=== PATIENT | female | born 2005 | race Caucasian/White ===

== ENCOUNTER 2024-07-09 00:26 | Emergency (ER) | payer OTHER, SELFPAY ==
[2024-07-09 00:30] VITALS: BP 124/80; PULSE 77; TEMP 36.4; O2SAT 100; BMI 29.3
--- NOTE | 2024-07-09 00:58 | ED_ITS ---
HPI - Female Genitourinary General Chief complaint: OB/Uterine Contractions Stated complaint: SEVERE CRAMPING/ABDOMINAL PAIN Time Seen by Provider: 07/09/24 00:56 Source: patient Mode of arrival: ambulance Limitations: no limitations History of Present Illness HPI Narrative: patient believes she is about 4 weeks . First . Started bleeding some about 4 days ago. Increased bleeding today with cramping and large clots. After arrival to the ER the cramping has decreased and she appears to have passed products. No weakness or light headiness. No fever. Has chronic dysuria. Not aware of family history of miscarriage Related Data Allergies Allergy/AdvReac Type Severity Reaction Status Date / Time prednisone AdvReac Intermediate Anxiety Verified 07/09/24 00:29 Review of Systems ROS Status of ROS 10 or more systems reviewed and unremark able except as noted in history and below Exam Constitutional Vital Signs, click to edit/add: Last Vital Signs Temp 97.6 F 07/09/24 00:30 Pulse 72 07/09/24 02:18 Resp 28 H 07/09/24 00:30 BP 124/67 07/09/24 02:18 Pulse Ox 100 07/09/24 00:30 O2 Del Method Room Air 07/09/24 00:30 Common normals: average body habitus, oriented x3, no limitations, healthy appearing, alert and well nourished Other: tearful because of the miscarriage [facility] Common normals: normocephalic and head/scalp atraumatic Eye Common normals: PERRL and EOMs intact bilaterally Respiratory Common normals: normal respiratory effort, no retractions, no use of accessory muscles and clear to auscultation bilaterally Cardio Common normals: regular rate, regular rhythm, S1 normal heart sound and S2 normal heart sound GI Common normals: Normal to inspection, nondistended, normoactive bowel sounds present and soft to palpation Other: mild gen. nonspecific tenderness. no guarding Extremity Common normals: normal to inspection and full ROM Neuro Common normals: oriented x3, CN's II-XII intact bilaterally, moves all extremities, no focal motor deficits and no sensory deficits noted Psych Appearance: grossly normal Course Vital Signs Vital signs: Vital Signs Temperature 97.6 F 07/09/24 00:30 Pulse Rate 77 07/09/24 00:30 Respiratory Rate 28 H 07/09/24 00:30 Blood Pressure 124/80 07/09/24 00:30 Pulse Oximetry 100 07/09/24 00:30 Oxygen Delivery Method Room Air 07/09/24 00:30 Temperature 97.6 F 07/09/24 00:30 Pulse Rate 72 07/09/24 02:18 Respiratory Rate 28 H 07/09/24 00:30 Blood Pressure 124/67 07/09/24 02:18 Pulse Oximetry 100 07/09/24 00:30 Oxygen Delivery Method Room Air 07/09/24 00:30 MDM - Female Genitourinary MDM Narrative Medical decision making narrative: patient [id number] approx 4 weeks presents with vaginal bleeding for 4 days. Increased heavy bleeding tonight and cramping. After arrival to the ER past large clot containing what appears to be products. cramping decreased significantly and now she is restng comfortably. VSS. HCG 139. now only has small amount of bleeding. Patient informed of diagnosis of miscarriage and advised to follow up with her OB Lab Data Labs: Lab Results 07/09/24 Range/Units 00:30 WBC 12.8 H (4.0-11.0) 10^3/uL RBC 4.50 (4.20-5.40) 10^6/uL Hgb 13.4 (12.0-16.0) g/dL Hct 39.5 (36.0-48.0) % MCV 87.8 (81.0-99.0) fL MCH 29.8 (26.7-34.0) pg MCHC 33.9 (29.9-35.2) g/dL RDW 12.1 (11.0-15.0) % Plt Count 241 (150-450) 10^3/uL MPV 10.9 (9.5-13.5) fL Neut % (Auto) 75.2 H (43.0-75.0) % Lymph % (Auto) 14.6 L (20.5-60.0) % [place] % (Auto) 7.0 (1.7-12.0) % Eos % (Auto) 2.3 (0.9-7.0) % Baso % (Auto) 0.5 (0.2-2.0) % Neut # (Auto) 9.6 H (1.4-6.5) 10^3/uL Lymph # (Auto) 1.9 (1.2-3.8) 10^3/uL [place] # (Auto) 0.9 H (0.3-0.8) 10^3/uL Eos # (Auto) 0.3 (0.0-0.7) 10^3/uL Baso # (Auto) 0.1 (0.0-0.1) 10^3/uL Abs Immat Gran (auto) 0.05 H (0.00-0.03) 10^3/uL Imm/Tot Granulo (auto) 0.4 (0.0-0.5) % Sodium 137 (136-145) mmol/L Potassium 3.7 (3.5-5.1) mmol/L Chloride 100 (98-107) mmol/L Carbon Dioxide 24.1 (21.0-32.0) mmol/L Anion Gap 16.6 BUN 13.0 (7.0-18.0) mg/dL Creatinine 0.67 (0.55-1.02) mg/dL Est GFR ( Amer) >60 (>=60 mL/min/1.73m^2) Est GFR (Non-Af Amer) >60 (>=60 mL/min/1.73m^2) BUN/Creatinine Ratio 19.4 Glucose 115 H (74-106) mg/dL Calcium 9.1 (8.5-10.1) mg/dL HCG, Quant 139 mIU/mL Discharge Plan Discharge Chief Complaint: OB/Uterine Contractions Clinical Impression: Miscarriage Patient Disposition: Home, Self-Care Print Language: Chilean Instructions: Miscarriage (ED) Referrals: Physician,Non-Staff, MD [Primary Care Provider] - 1 week
[2024-07-09 01:07] LABS: Basophils Absolute Auto 0.1 10^3/uL (0.0-0.1); Basophils Percent Auto 0.5 % (0.2-2.0); Eosinophils Absolute Auto 0.3 10^3/uL (0.0-0.7); Eosinophils Percent Auto 2.3 % (0.9-7.0); Hematocrit 39.5 % (36.0-48.0); Hemoglobin 13.4 g/dL (12.0-16.0); Immature Granulocytes Abs Auto 0.05 10^3/uL (0.00-0.03); Immature Granulocytes Pct Auto 0.4 % (0.0-0.5); Lymphocytes Absolute Auto 1.9 10^3/uL (1.2-3.8); Lymphocytes Percent Auto 14.6 % (20.5-60.0); Mean Corpuscular HGB Conc 33.9 g/dL (29.9-35.2); Mean Corpuscular Hemoglobin 29.8 pg (26.7-34.0); Mean Corpuscular Volume 87.8 fL (81.0-99.0); Mean Platelet Volume 10.9 fL (9.5-13.5); Monocytes Absolute Auto 0.9 10^3/uL (0.3-0.8); Neutrophils Absolute Auto 9.6 10^3/uL (1.4-6.5); Neutrophils Percent Auto 75.2 % (43.0-75.0); Platelet Count 241 10^3/uL (150-450); Red Cell Distribution Width 12.1 % (11.0-15.0); White Blood Count 12.8 10^3/uL (4.0-11.0)
[2024-07-09 01:28] LABS: Anion Gap 16.6; BUN Creatinine Ratio 19.4; Calcium 9.1 mg/dL (8.5-10.1); Carbon Dioxide 24.1 mmol/L (21.0-32.0); Chloride 100 mmol/L (98-107); Estimated GFR (African America >60 (>=60 mL/min/1.73m^2); Estimated GFR (Non-African Ame >60 (>=60 mL/min/1.73m^2); Glucose 115 mg/dL (74-106); Potassium 3.7 mmol/L (3.5-5.1); Sodium 137 mmol/L (136-145)
[2024-07-09 01:29] LABS: HCG Quantitative 139 mIU/mL
[2024-07-09 02:18] VITALS: BP 113/69; BP 118/70; BP 124/67; PULSE 72; PULSE 76; PULSE 80
== END 2024-07-09 02:49 | disposition home or self-care (01) ==
PROVIDERS: Emergency Provider Internal Medicine
DX: O03.9 Complete or unspecified spontaneous abortion without complication (principal)
CPT/HCPCS: 36415; 80048; 84702; 85025; 99283

== ENCOUNTER 2024-07-13 15:40 | Outpatient (RCR) | payer OTHER, SELFPAY ==
[2024-07-13 17:10] LABS: HCG Quantitative 6 mIU/mL
[2024-07-23 07:18] LABS: HCG Quantitative <1 mIU/mL
== END 2024-08-10 10:51 | disposition home or self-care (01) ==
LOC: LAB 15:40
PROVIDERS: Visit Provider Obstetrics & Gynecology
DX: O03.9 Complete or unspecified spontaneous abortion without complication (principal)
CPT/HCPCS: 36415; 84702

== ENCOUNTER 2024-08-31 21:49 | Emergency (ER) | payer OTHER, SELFPAY ==
[2024-08-31 21:54] VITALS: BP 126/76; PULSE 69; TEMP 36.7; O2SAT 99; BMI 30.2
--- NOTE | 2024-08-31 23:29 | ED.EYEPROB1 ---
HPI - Eye Problem General Chief complaint: Eye Problems Stated complaint: L EYE IRRITATION Time Seen by Provider: 08/31/24 23:26 Source: patient Mode of arrival: walk-in Limitations: no limitations History of Present Illness HPI Narrative: patient states she woke up and her cat was licking her left eye. Now it is pink and irritated. No visual complaint or headache. No other injury Related Data Home Medications ?Medication ?Instructions ?Recorded ?Confirmed No Known Home Medications 08/31/24 08/31/24 Allergies Allergy/AdvReac Type Severity Reaction Status Date / Time prednisone AdvReac Intermediate Anxiety Verified 08/31/24 21:53 Review of Systems ROS Status of ROS 10 or more systems reviewed and unremarkable except as noted in history and below PFSH PFSH Social History Little interest or pleasure in doing things: not at all Feeling down, depressed, or hopeless: not at all Exam Constitutional Vital Signs, click to edit/add: Last Vital Signs Temp 98.1 F 08/31/24 21:54 Pulse 69 08/31/24 21:54 Resp 20 08/31/24 21:54 BP 126/76 08/31/24 21:54 Pulse Ox 99 08/31/24 21:54 O2 Del Method Room Air 08/31/24 21:54 Common normals: no apparent distress, average body habitus, oriented x3, no limitations, healthy appearing, alert and well nourished [facility] Common normals: normocephalic and head/scalp atraumatic Eye Common normals: PERRL and EOMs intact bilaterally Other: left conjunctiva pink and glassy. no chemosis or discharge. no palpebral edema or erythema Respiratory Common normals: normal respiratory effort, no retractions, no use of accessory muscles and clear to auscultation bilaterally Cardio Common normals: regular rate, regular rhythm, S1 normal heart sound and S2 normal heart sound Extremity Common normals: normal to inspection and full ROM Neuro Common normals: oriented x3, CN's II-XII intact bilaterally, moves all extremities and no focal motor deficits Psych Appearance: grossly normal Course Vital Signs Vital signs: Vital Signs Temperature 98.1 F 08/31/24 21:54 Pulse Rate 69 08/31/24 21:54 Respiratory Rate 20 08/31/24 21:54 Blood Pressure 126/76 08/31/24 21:54 Pulse Oximetry 99 08/31/24 21:54 Oxygen Delivery Method Room Air 08/31/24 21:54 Temperature 98.1 F 08/31/24 21:54 Pulse Rate 69 08/31/24 21:54 Respiratory Rate 20 08/31/24 21:54 Blood Pressure 126/76 08/31/24 21:54 Pulse Oximetry 99 08/31/24 21:54 Oxygen Delivery Method Room Air 08/31/24 21:54 MDM - Eye Problem MDM Narrative Medical decision making narrative: patient presents with left pink eye. No FB sensation. cat was licking her eye. No visual complaint. Will treat as conjunctivitis with tobramycin and have her follow up with her doctor for recheck Discharge Plan Discharge Chief Complaint: Eye Problems Clinical Impression: Conjunctivitis Patient Disposition: Home, Self-Care Prescriptions / Home Meds: No Action No Known Home Medications Print Language: Irish Instructions: Conjunctivitis (ED) Additional Instructions: have eye rechecked in next 1-2 days Referrals: [facility] [Primary Care Provider, Unknown] - 1 week
[2024-08-31] MEDS: TOBRAMYCIN 0.3% OP SOL 100 DROP/5 ML BOTTLE OP (23:52)
== END 2024-09-01 00:04 | disposition home or self-care (01) ==
PROVIDERS: Emergency Provider Internal Medicine
DX: H10.022 Other mucopurulent conjunctivitis, left eye (principal)
CPT/HCPCS: 99284

== ENCOUNTER 2024-09-14 10:25 | Outpatient (RCR) | payer OTHER, SELFPAY ==
--- OUTSIDE RECORDS SUMMARY | 2024-09-14 10:30 | XMS_ITS | Encounter Summary ---
Author Organization [facility] Address [address] [place] [address] Care Team Providers Care Director Patient Accounting Name Role Phone Unavailable Primary Care Provider Unavailabl e Encounter Details Date Type Department Care Team ([facility] Contact Info) Description 09/14/2024 Telephone [facility] [address] [place] [id number] Marilu Pearce MA Social History Tobacco Use Types Packs/Day Years Used Date Smoking Tobacco: Never Assessed Comments Unknown Sex and Gender Information Value Date Recorded Sex Assigned at Female 07/13/2024 5:09 AM EDT Legal Sex Female 9:35 PM EDT Gender Identity Female 07/13/2024 5:09 AM EDT Sexual Orientation Straight 07/13/2024 5: 09 AM EDT documented as of this encounter Miscellaneous Notes * Telephone Encounter - Marilu Pearce MA - 09/14/2024 9:17 AM EDT Hi, this is Sb Gregorio. Keron, I was supposed to call you guys when I became again, which I am now to get progesterone from [facility] and to schedule an appointment for an office, so please get back to me at any time it is [phone]. Thank you very much. LMP: 08/08/2024 Advised pt we would send in progesterone suppositories to [facility]. Pt requested ultrasound. Advised pt we would need to do hCG levels to determine if she is far enough along to have ultrasound done. Pt voiced understanding. Labs sent to [facility] and pt transferred to front office staff to schedule NOB. documented in this encounter Plan of Treatment Scheduled Orders Name Type Priority Associated Diagnoses Orde r Schedule hCG, quantitative, Lab Routine Positive urine test ([facility]) 2 Occurrences starting 09/14/2024 until 09/14/2025 documented as of this encounter Visit Diagnoses Diagnosis Positive urine test ([facility]) History of miscarriage Personal history of other genital system and obstetric disorders documented in this encounter
--- OUTSIDE RECORDS SUMMARY | 2024-09-14 10:30 | XMS_ITS | Encounter Summary ---
Author Organization [facility] Address [id number] [address] [place] [address] Care Team Providers Care Battery Mechanic Name Role Phone Services, [facility] Primary Care Provider Reason for Visit * Reason Comments Med Refill Encounter Details Date Type Department Care Team ([facility] Contact Info) Description 02/19/2022 Refill [facility] [address], [place] [id number] Thi Sin DO [address] [place], [place] [id number] Dysmenorrhea treated with oral contraceptive; Dysuria Social History Tobacco Use Types Packs/Day Years Used Date Smoking Tobacco: Passive Smo ke Exposure - Never Smoker Smokeless Tobacco: Never Alcohol Use Standard Drinks/Week Comments Never 0 (1 standard drink = 0.6 oz pur e alcohol) Childcare Answer Date Recorded Childcare Unknown 08/20/2018 Employment Answer Date Recorded Employment Unknown 08/20/2018 Purpose - Life Answer Date Recorded Purpose and direction in life Unknown Comments No Sex and Gender Information Value Date Recorded Sex Assigned at Not on file Legal Sex Female 12:02 PM EDT Gender Identity Not on file Sexual Orientation Not on file COVID-19 Exposure Response Date Recorded In the last month, have you been in contact with someone who was confirmed or suspected to have Coronavirus / COVID-19? Yes 02/11/2022 10:59 PM EST documented as of this encounter Miscellaneous Notes * Telephone Encounter - Margarita Aponte - 02/19/2022 2:05 PM EST Patient's mother called asking for a B/C refill to be sent to [facility] in [place] * Telephone Encounter - Thi Sin DO - 02/19/2022 2:05 PM EST Pt will need to schedule a follow up apt in March for annual well visit. documented in this encounter Plan of Treatment Upcoming Encounters Date Type Department Care Team (Late st Contact Info) Description 11/05/2024 10:00 AM EDT Office Visit [facility] Family Medicine [address] [place] [address] [place] [address] Susi Mckee APRN-SECY [address], [place] [address] documented as of this encounter Visit Diagnoses Diagnosis Dysmenorrhea treated with oral contraceptive Dysuria documented in this encounter Additional Health Concerns Infection Onset Date Last Indicated Resolved Time COVID-19 Positive 08/20/2023 08/20/2023 09/10/2023 11:12 PM EDT COVID-19 Rule-Out 01/30/2024 01/30/2024 01/30/2024 3:34 AM EST documented as of this encounter Care Teams Battery Mechanic Relationship Specialty Start Date End Date Services, [facility] [address] [place], [place] PCP - General Family Medicine 07/07/24 documented as of this encounter
--- OUTSIDE RECORDS SUMMARY | 2024-09-14 10:30 | XMS_ITS | Clinical Summary ---
Author Organization [facility] Address [address] [place] [address] Care Team Providers Care Scrub Technician Name Role Phone Lori Mak DO Primary Care Provider [phone] Allergies No known active allergies Medications norelgestromin-et hinyl estradiol (ORTHO EVRA) 150-35 MCG/24HRIndicatio ns:Screen for STD (sexually transmitted disease),Menorrha ana with irregular cycle Place 1 patch onto the skin every 7 days 3 patch 3 12/22/2018 Active Active Problems No known active problems Family History Medical History Relation Name Comments Kidney stones Mother Relation Name Status Comments Mother Social History Tobacco Use Types Packs/Day Years Used Date Smoking Tobacco: Never Smokeless Tobacco: Never Tobacco Cessation:Counseling Given: Not Answered Alcohol Use Standard Drinks/Week Comments Never 0 (1 standard drink = 0.6 oz pur e alcohol) Comments No Sex and Gender Information Value Date Recorded Sex Assigned at Not on file Legal Sex Female 5:04 PM EST Gender Identity Not on file Sexual Orientation Not on file Last Filed Vital Signs Vital Sign Reading Time Taken Comments Blood Pressure 118/78 12/22/2018 4:21 PM EDT Pulse - - Temperature 37.1 C (98.7 F) 10/22/2022 3:02 PM EDT Respiratory Rate - - Oxygen Saturation - - Inhaled Oxygen Concentration - - Weight 56.2 kg (124 lb) 10/22/2022 3:02 PM EDT Height 160 cm (5' 3 ) 10/22/2022 3:02 PM EDT Body Mass Index 21.97 10/22/2022 3:02 PM EDT Plan of Treatment Health Maintenance Due Date Last Done Comments Depression Screen 2016 Varicella vaccine (1 of 2 - 13+ 2-dose series) 02/28/2017 HIV screen 02/28/2019 HPV vaccine (1 - 3-dose series) 02/28/2019 Chlamydia/GC screen 2020 12/22/2018 Meningococcal B vaccine (1 o f 2 - Standard) 2020 Hepatitis C screen 02/28/2022 DTaP/Tdap/Td vaccine (1 - Tdap) 02/28/2023 Hepatitis B vaccine (1 of 3 - 19+ 3-dose series) 02/28/2023 COVID-19 Vaccine (1 - 2023-2 5 season) 2023 Flu vaccine (#1) 10/09/2024 Hepatitis A vaccine Aged Out No longe r eligible based on patient's age to complete this topic Hib vaccine Aged Out No longer eligi ble based on patient's age to complete this topic Meningococcal (ACWY) vaccine Aged Out No longer eligible based on patient's age to complete this topic Pneumococcal 0-49 years Vaccine Aged Out No longer eligible based on patient's age to complete this topic Polio vaccine Aged Out No longer elig ible based on patient's age to complete this topic Procedures Procedure Name Priority Date/Time Associated Diagnosis Comments C.TRACHOMATIS N.GONORRHOEAE DNA, URINE Routine 12/22/2018 4:30 PM EDT Screen for STD (sexually transmitted disease) from Last 3 Months or Most Recently Relevant to Health Maintenance Results * C.trachomatis N.gonorrhoeae DNA, Urine (12/22/2018 4:30 PM EDT) Specimen Description .URINE 12/22/2018 4:30 PM EDT [facility] C. trachomatis DNA ,Urine NEGATIVE NEGATIVE 12/22/2018 4:30 PM EDT [facility] Comment: CHLAMYDIA TRACHOMATIS DNA not detected by nucleic acid amplification. This test is intended for medical purposes only and is not valid for the evaluation of suspected sexual abuse or for other forensic purposes. In certain contexts, culture may be required to meet applicable laws and regulations for diagnosis of C. trachomatis and N. gonorrhoeae infections. Per 2014 CDC recommendations, this test does not include confirmation of positive results by an alternative nucleic acid target. N. gonorrhoeae DNA, Urine NEGATIVE NEGATIVE 12/22/2018 4:30 PM EDT [facility] Comment: NEISSERIA GONORRHOEAE DNA not detected by nucleic acid amplification. This test is intended for medical purposes only and is not valid for the evaluation of suspected sexual abuse or for other forensic purposes. In certain contexts, culture may be required to meet applicable laws and regulations for diagnosis of C. trachomatis and N. gonorrhoeae infections. Per 2014 CDC recommendations, this test does not include confirmation of positive results by an alternative nucleic acid target. Urine 12/22/2018 4:30 PM EDT 12/22/2018 6:14 PM EDT Thalia Hearn [employer]HALT PLANT OPERATOR - CNM MICROBIOLOGY - GENERA L ORDERABLES Final Result [facility] [address] [place] [address], [facility] [phone] [address], [facility] [phone] from Last 3 Months or Most Recently Relevant to Health Maintenance Insurance [facility] MEDICAID Care Teams Scrub Technician Relationship Specialty Start Date End Date oLri Mak DO PCP - General Pediatrics 05/08/21
--- OUTSIDE RECORDS SUMMARY | 2024-09-14 10:30 | XMS_ITS | Encounter Summary ---
Author Organization [facility] Address [id number] [address] [place] [address] Care Team Providers Care Compliance Review Specialist Name Role Phone Services, [facility] Primary Care Provider Encounter Details Date Type Department Care Team ([facility] Contact Info) Description 02/04/2023 Orders Only [facility] Ob[facility]ne[facility] [address] [facility], [place] [address] Thalia Coronado, BULK MAIL TECHNICIAN-KEYSHA [address] [facility], [address] [place], [place] [id number] Social History Tobacco Use Types Packs/Day Years Used Date Smoking Tobacco: Never Passive Smoke Exposure: Yes Smokeless Tobacco: Never Alcohol Use Standard Drinks/Week Comments Never 0 (1 standard drink = 0.6 oz pur e alcohol) Childcare Answer Date Recorded Childcare Unknown 08/20/2018 Employment Answer Date Recorded Employment Unknown 08/20/2018 Hunger Screening Answer Date Recorded Within the past 12 months we worried whether our food would run out before we got money to buy more. Never True 02/06/2023 Within the past 12 months th e food we bought just didn't last and we didn't have money to get more. Never True 02/06/2023 Purpose - Life Answer Date Recorded Purpose and direction in life Unknown Comments No Sex and Gender Information Value Date Recorded Sex Assigned at Not on file Legal Sex Female 12:02 PM EDT Gender Identity Not on file Sexual Orientation Not on file documented as of this encounter Plan of Treatment Upcoming Encounters Date Type Department Care Team ([facility] Contact Info) Description 11/05/2024 10:00 AM EDT Office Visit [facility] [address] [place] [address] Susi Mckee APRN-FINNISH RUBBER [address], [place] [address] documented as of this encounter Visit Diagnoses Not on filedocumented in this encounter Additional Health Concerns Infection Onset Date Last Indicated Resolved Time COVID-19 Positive 08/20/2023 08/20/2023 09/10/2023 11:12 PM EDT COVID-19 Rule-Out 01/30/2024 01/30/2024 01/30/2024 3:34 AM EST documented as of this encounter Care Teams Compliance Review Specialist Relationship Specialty Start Date End Date Services, [facility] [address] [place] PCP - General Family Medicine 07/07/24 documented as of this encounter
--- OUTSIDE RECORDS SUMMARY | 2024-09-14 10:30 | XMS_ITS | Clinical Summary ---
Author Organization [facility] tem Address [id number] [address] [place] [address] Care Team Providers Care Automatic Maintainer Name Role Phone Services, [facility] Primary Care Provider Allergies Active Allergy Reactions Criticality Noted Date Comments Prednisone 08/20/2023 Medications norethindrone-e.es tradioL-iron (MICROGESTIN 24 FE) 1 mg-20 mcg (24)/75 mg (4) per tabletIndications: Oral contraceptive pill surveillance Take 1 tablet by mouth in the morning. 84 tablet 3 4 Active PNV 119-iron fum-folic acid 29 mg iron- 1 mg tablet Take 1 tablet by mouth in the morning. 30 tablet 5 Active Active Problems Estimated Date of Delivery Comme nts Yes 02/28/2025 No known active problems Encounters Date Type Department Care Team Description 07/07/2024 1:03 PM EDT - 07/07/2024 3:07 PM EDT Emergency [facility] [address] [place] [id number] Vaginal bleeding during (Primary Dx) Discharge Disposition: Home 07/07/2024 Travel from Last 3 Months Family History Medical History Relation Name Comments Deep vein thrombosis Maternal Grandfather Skin cancer Maternal Grandfather Heart disease Maternal Grandmother Breast cancer Maternal great-grandmother No Known Problems Mother Cancer Paternal Grandfather Diabetes Paternal Grandfather Leukemia Paternal Grandfather Colon cancer Neg Hx Ovarian cancer Neg Hx Pancreatic cancer Neg Hx Uterine cancer Neg Hx Relation Name Status Comments Father Alive Maternal Grandfather Alive Maternal Grandmother Alive Maternal great-grandmother Mother Alive Paternal Grandfather Alive Paternal Grandmother Alive Social History Tobacco Use Types Packs/Day Years Used Date Smoking Tobacco: Never Passive Smoke Exposure: Yes Smokeless Tobacco: Never Tobacco Cessation:Counseling Given: Not Answered Alcohol Use Standard Drinks/Week Comments Never 0 (1 standard drink = 0.6 oz pur e alcohol) PHQ-2 Answer Date Recorded Total Score 4 02/05/2024 Childcare Answer Date Recorded Childcare Unknown 08/20/2018 Employment Answer Date Recorded Employment Unknown 08/20/2018 Hunger Screening Answer Date Recorded Within the past 12 months we worried whether our food would run out before we got money to buy more. Never True 07/07/2024 Within the past 12 months th e food we bought just didn't last and we didn't have money to get more. Never True 07/07/2024 Purpose - Life Answer Date Recorded Purpose and direction in life Unknown Estimated Date of Delivery Comme nts Yes 02/28/2025 Sex and Gender Information Value Date Recorded Sex Assigned at Not on file Legal Sex Female 12:02 PM EDT Gender Identity Not on file Sexual Orientation Not on file Last Filed Vital Signs Vital Sign Reading Time Taken Comments Blood Pressure 132/75 07/07/2024 1:06 PM EDT Pulse 90 07/07/2024 1:06 PM EDT Temperature 36.7 C (98 F) 07/07/2024 1:06 PM EDT Respiratory Rate 16 07/07/2024 1:06 PM EDT Oxygen Saturation 100% 07/07/2024 1:06 PM EDT Inhaled Oxygen Concentration - - Weight 72.6 kg (160 lb) 07/07/2024 1:06 PM EDT Height 157.5 cm (5' 2 ) 07/07/2024 1:06 PM EDT Body Mass Index 29.26 07/07/2024 1:06 PM EDT Plan of Treatment Upcoming Encounters Date Type Department Care Team (Late st Contact Info) Description 11/05/2024 10:00 AM EDT Office Visit [facility] [address] [place] [address] Susi Mckee APRN-INDY [address] [place] [address], [place] [address] Health Maintenance Due Date Last Done Comments Adult BMI Follow Up Plan 02/28/2022 Chlamydia Screening 10/07/2024 10/08/2023, 05/21/2023, 08/10/2022, Additional history exists Influenza Vaccine 11/09/2024 Depression Screening 02/04/2025 02/05/2024 Adult BMI Screening 07/07/2025 07/07/2024 Tobacco Screening 07/07/2025 07/07/2024 DTaP,Tdap and Td Vaccines (6 - Td or Tdap) 11/14/2026 11/14/2016, 07/16/2005, 2004, Additional history exists Medical Devices Not on file Procedures Procedure Name Priority Date/Time Associated Diagnosis Comments HCG-BETA, SERUM STAT 07/07/2024 1:54 PM EDT CBC WITH AUTO DIFFERENTIAL STAT 07/07/2024 1:54 PM EDT US PREG LESS THAN 14 WKS WITH TRANSVAGINAL STAT 07/07/2024 1:53 PM EDT POCT , URINE (NUCG) Routine 07/07/2024 1:21 PM EDT POCT NURSING URINE MACROSCOPIC UA Routine 07/07/2024 1:19 PM EDT ER EXTRA URINE STAT 07/07/2024 1:12 PM EDT CHLAMYDIA/GC BY PCR DAVIDA SWAB Routine 10/08/2023 9:16 AM EDT Screening for STD (sexually transmitted disease) from Last 3 Months or Most Recently Relevant to Health Maintenance Results * CBC auto differential (07/07/2024 1:54 PM EDT) WBC 11.0 4 - 11 x10E9/L 07/07/2024 2:04 PM EDT [facility] RBC Count 4.47 3.8 - 5.2 X10E12/L 07/07/2024 2:04 PM EDT [facility] Hemoglobin 13.2 11.7 - 15.5 g/dL 07/07/2024 2:04 PM EDT [facility] Hematocrit 39.5 35 - 47 % 07/07/2024 2:04 PM EDT [facility] MCV 88 80 - 100 fL 07/07/2024 2:04 PM EDT [facility] MCH 29.5 27 - 34 pg 07/07/2024 2:04 PM EDT [facility] MCHC 33.4 32 - 36 g/dL 07/07/2024 2:04 PM EDT [facility] RDW 13.0 11.5 - 15 % 07/07/2024 2:04 PM EDT [facility] Platelet Count 245 150 - 450 X10E9/L 07/07/2024 2:04 PM EDT [facility] MPV 8.9 7 - 12 fL 07/07/2024 2:04 PM EDT [facility] Neutrophils % 52.6 % 07/07/2024 2:04 PM EDT [facility] Lymphocytes % 32.5 % 07/07/2024 2:04 PM EDT [facility] Monocytes % 9.3 % 07/07/2024 2:04 PM EDT [facility] Eosinophils % 5.1 % 07/07/2024 2:04 PM EDT [facility] Basophils % 0.5 % 07/07/2024 2:04 PM EDT [facility] Neutrophils Absolute (A) 5.8 10*3/uL 07/07/2024 2:04 PM EDT [facility] Lymphocytes Absolute 3.6 10*3/uL 07/07/2024 2:04 PM EDT [facility] Monocytes Absolute 1.0 10*3/uL 07/07/2024 2:04 PM EDT [facility] Eosinophils Absolute 0.6 10*3/uL 07/07/2024 2:04 PM EDT [facility] Basophils Absolute 0.1 10*3/uL 07/07/2024 2:04 PM EDT [facility] Differential Type AUTOMATED DIFFERENTIAL 07/07/2024 2:04 PM EDT [facility] Blood Venous blood / Unknown Venipuncture / Unknown 07/07/2024 1:54 PM EDT 07/07/2024 1:57 PM EDT us Zohreh Salcedo BRAKE REPAIRER-FORESTRY PATROLMAN LAB BLOOD ORDERABLES Final Result [facility] [address] [place] [address], * HCG, Quantitative, (07/07/2024 1:54 PM EDT) SERUM B HCG,3RD I.S. 418 mIU/mL 07/07/2024 2:45 PM EDT [facility] Blood Venous blood / Unknown Venipuncture / Unknown 07/07/2024 1:54 PM EDT 07/07/2024 1:56 PM EDT Narrative [facility] - 07/07/2024 2:45 PM EDT WEEKS (SINCE LMP) MIU/mL 3 WEEKS 5 - 50 4 WEEKS 5 - 426 5 WEEKS 18 - 7,340 6 WEEKS 1,080 - 56,500 7-8 WEEKS 7,650 - 229,000 9-12 WEEKS 25,700 - 288,000 13-16 WEEKS 13,300 - 254,000 17-24 WEEKS 4,060 - 165,400 25-40 WEEKS 3,640 - 117,000 MALES AND NON- FEMALES - <5 MIU/mL This test has been FDA approved for use in only. Elevated levels are not necessarily diagnostic for trophoblastic or nontrophoblastic neoplasms. us Zohreh Salcedo BRAKE REPAIRER-FORESTRY PATROLMAN LAB BLOOD ORDERABLES Final Result [facility] [address] [place] [address], [place] * Ultrasound less than 14 weeks with transvaginal (07/07/2024 1:53 PM EDT) Anatomical Region Laterality Modality OB-WORK COUNSELOR Ultrasound 07/07/2024 2:01 PM EDT Narrative 07/07/2024 2:07 PM EDT HISTORY AND/OR TECH NOTES Clinical History: and bleeding Current Signs/Symptoms: bleeding Surgical History: none Previous Exams: no LMP: 05/24/24 History: PROCEDURE Ultrasound pelvis for early evaluation Transabdominal and transvaginal images submitted COMPARISON no comparison currently available FINDINGS Uterus 74 x 44 x 55 mm or 93 mL Right ovary 28 x 16 x 16 mm or 4 mL Left ovary 28 x 19 x 23 mm or 6 mL Transabdominal and transvaginal imaging The endometrium looks thick There is a small cystic or saclike structure in the endometrium measuring 3.2 mm. There is no pole or yolk sac visible Placenta is not developed or evaluated at this stage Left ovary shown with follicles, blood flow on color Doppler. No dominant cyst Right ovary shown with follicles and blood flow on color Doppler. No dominant cyst Unusual multilobulated echogenic area shown near the anterior uterine fundus on transverse transvaginal images presumably related to bowel position in that location No suspicious free fluid was otherwise shown or reported IMPRESSION: Thickened endometrium with 3.2 mm cystic or saclike area within the endometrial canal This could be an early intrauterine but without a pole or yolk sac visible at this point Correlation with current and serial quantitative hCG measurements and assuming hCG levels remain elevated or increased, short-term follow-up surveillance scan in attempt to confirm viable intrauterine and rule out ectopic Multilobulated echogenic area projecting adjacent to the anterior uterine fundus presumably relates to the bowel content. There are follicular changes in the ovaries with no visible cystic adnexal mass or significant free fluid otherwise shown or reported Finalized by Андрей Beyer MD on 07/07/2024 2:07 PM Procedure Note Андрей Beyer MD - 07/07/2024 HISTORY AND/OR TECH NOTES Clinical History: and bleeding Current Signs/Symptoms: bleeding Surgical History: none Previous Exams: no LMP: 05/24/24 History: PROCEDURE Ultrasound pelvis for early evaluation Transabdominal and transvaginal images submitted COMPARISON no comparison currently available FINDINGS Uterus 74 x 44 x 55 mm or 93 mL Right ovary 28 x 16 x 16 mm or 4 mL Left ovary 28 x 19 x 23 mm or 6 mL Transabdominal and transvaginal imaging The endometrium looks thick There is a small cystic or saclike structure in the endometrium measuring3.2 mm. There is no pole or yolk sac visible Placenta is not developed or evaluated at this stage Left ovary shown with follicles, blood flow on color Doppler. No dominantcyst Right ovary shown with follicles and blood flow on color Doppler. Nodominant cyst Unusual multilobulated echogenic area shown near the anterior uterinefundus on transverse transvaginal images presumably related to bowelposition in that location No suspicious free fluid was otherwise shown or reported IMPRESSION: Thickened endometrium with 3.2 mm cystic or saclike area within theendometrial canal This could be an early intrauterine but without a pole oryolk sac visible at this point Correlation with current and serial quantitative hCG measurements andassuming hCG levels remain elevated or increased, short-term follow-upsurveillance scan in attempt to confirm viable intrauterine andrule out ectopic Multilobulated echogenic area projecting adjacent to the anterior uterinefundus presumably relates to the bowel content. There are follicularchanges in the ovaries with no visible cystic adnexal mass or significantfree fluid otherwise shown or reported Finalized by Андрей Beyer MD on 07/07/2024 2:07 PM us Zohreh Salcedo BRAKE REPAIRER-INDY IMG US ORDERABLES Final Re sult * (ABNORMAL) POCT , urine (07/07/2024 1:21 PM EDT) POC Urine Positive(A ) Negative 07/07/2024 1:22 PM EDT [facility] Urine 07/07/2024 1:21 PM EDT 07/07/2024 1:22 PM EDT us POINT OF CARE TEST ORDERABLES Fi nal Result [facility] [address] [place] [address], [place] * (ABNORMAL) POCT Nursing Urine Macroscopic UA (07/07/2024 1:19 PM EDT) POC Urine Specific Kellogg <=1.005(A) 1.010, 1.015, 1.020, 1.025 07/07/2024 1:16 PM EDT [facility] POC Urine Leukocyte Esterase Negative Negative 07/07/2024 1:16 PM EDT [facility] POC Urine Nitrite Negative Negative 07/07/2024 1:16 PM EDT [facility] POC Urine pH 6.5 5.0, 6.0, 6.5, 7.0, 7.5, 8.0, 8.5, 5.5 07/07/2024 1:16 PM EDT [facility] POC Urine Protein Negative Negative 07/07/2024 1:16 PM EDT [facility] POC Urine Glucose Negative Negative 07/07/2024 1:16 PM EDT [facility] POC Urine Ketones Negative Negative 07/07/2024 1:16 PM EDT [facility] POC Urine Urobilinogen 0.2 E.U./dL 0.2 E.U./dL, 1.0 E.U./dL 07/07/2024 1:16 PM EDT [facility] POC Urine Bilirubin Negative Negative 07/07/2024 1:16 PM EDT [facility] POC Urine Blood/HGB Large(A) Negative 07/07/2024 1:16 PM EDT [facility] Urine 07/07/2024 1:19 PM EDT 07/07/2024 1:16 PM EDT us POINT OF CARE TEST ORDERABLES Fi nal Result Performing Organization Address City/[facility]/ZIP Co de Phone Number [address] [place] [address], [place] * Extra Urine (07/07/2024 1:12 PM EDT) Extra Tube Auto Resulted 07/07/2024 6:01 PM EDT [facility] Urine Urine specimen collection, clean catch / Unknown 07/07/2024 1:12 PM EDT 07/07/2024 2:30 PM EDT us Zohreh Salcedo BRAKE REPAIRER-FORESTRY PATROLMAN URINE ORDERABLES Final Res ult Performing Organization Address City/[facility]/ZIP Co de Phone Number [address] [place] [address], [place] * Chlamydia/GC by PCR Davida Swab (10/08/2023 9:16 AM EDT) Specimen source CERVIX 9:16 PM EDT [employer] Chlamydia DNA PCR Negative Negative^N egative 10/09/2023 11:35 AM EDT [facility] Comment: Chlamydia trachomatis not detected by nucleic acid amplification. This does not exclude the possibility of infection because results are dependent on adequate specimen collection. Gonorrhea DNA PCR Negative Negative^N egative 10/09/2023 11:35 AM EDT [facility] Comment: Neisseria gonorrhoeae not detected by nucleic acid amplification. This does not exclude the possibility of infection because results are dependent on adequate specimen collection. [facility] 10/08/2023 9:16 AM EDT 10/08/2023 9:16 PM EDT Erna Villagomez MD MICROBIOLOGY - GENERAL ORDERAB LES Final Result [facility] [address] [address] [place] [address] from Last 3 Months or Most Recently Relevant to Health Maintenance Insurance [employer] * Guarantor: SYSTEM GENERATED Account Type Relation to Patient Date of Phone Billing Address Personal/Family Care Teams Automatic Maintainer Relationship Specialty Start Date End Date Services, [facility] [address] [place], [place] PCP - General Family Medicine 07/07/24
--- OUTSIDE RECORDS SUMMARY | 2024-09-14 10:30 | XMS_ITS | Clinical Summary ---
Author Organization [facility] Address [address] [place] [address] Care Team Providers Care Investor Relations Manager Name Role Phone Unavailable Primary Care Provider Unavailabl e Allergies Active Allergy Reactions Criticality Noted Date Comments Prednisone Anxiety Low 07/13/2024 Increased HR Medications Progesterone 200 MG suppositoryIndi cations:History of miscarriage Insert 200 mg into the vagina at bedtime Insert suppository vaginally every night at bedtime until 12 weeks gestation 30 suppository 2 09/15/19 25 025 Active Encounters Date Type Department Care Team Description 09/14/2024 Telephone [facility] [place] [address] [place] [address] [place], [place] 07/23/2024 Clinisync Result Encounter [facility] External Department Unsolicited Durga Gibson DO 07/13/2024 3:00 PM EDT Office Visit [facility] [place] [address] Durga Gibson, DO Miscarriage ([facility]) 07/13/2024 Clinisync Result Encounter [facility] External Department Unsolicited Durga Gibson DO 07/13/2024 Bamboo flowsheet [facility] [place] [address] Durga Gibson, 07/13/2024 Travel from Last 3 Months Social History Tobacco Use Types Packs/Day Years Used Date Smoking Tobacco: Never Assessed Comments Unknown Sex and Gender Information Value Date Recorded Sex Assigned at Female 07/13/2024 5:09 AM EDT Legal Sex Female 9:35 PM EDT Gender Identity Female 07/13/2024 5:09 AM EDT Sexual Orientation Straight 07/13/2024 5: 09 AM EDT Last Filed Vital Signs Vital Sign Reading Time Taken Comments Blood Pressure 116/72 07/13/2024 2:57 PM EDT Pulse - - Temperature - - Respiratory Rate - - Oxygen Saturation - - Inhaled Oxygen Concentration - - Weight 76 kg (167 lb 8 oz) 07/13/2024 2:57 PM ED T Height - - Body Mass Index - - Plan of Treatment Not on file Procedures Procedure Name Priority Date/Time Associated Diagnosis Comments [facility] PREG QUANT HCG Routine 07/23/2024 6: 46 AM EDT [facility] PREG QUANT HCG Routine 07/13/2024 3: 50 PM EDT from Last 3 Months Results * [facility] PREG QUANT HCG (07/23/2024 6:46 AM EDT) Only the most recent of2 resultswithin the time period is included. HCG QUANTITATIVE <1 mIU/mL [facility] Comment: 5-50 0.2-1 WEEK 50-500 1-2 WEEKS 100-5,000 2-3 WEEKS 500-10,000 3-4 WEEKS 1,000-50,000 4-5 WEEKS 10,000-100,000 5-6 WEEKS 15,000-200,000 6-8 WEEKS 10,000-100,000 2-3 MONTHS 07/23/2024 6:46 AM EDT 07/23/2024 6:47 AM EDT Narrative [facility] - 07/23/2024 7:18 AM EDT us Durga Paige DO [facility] Final Result [facility] from Last 3 Months Insurance [employer]
== END 2024-10-08 17:03 | disposition home or self-care (01) ==
LOC: LAB 10:25
PROVIDERS: Visit Provider Obstetrics & Gynecology
DX: Z51.81 Encounter for therapeutic drug level monitoring (principal); Z32.01 Encounter for pregnancy test, result positive
CPT/HCPCS: 36415; 84702

== ENCOUNTER 2024-11-07 09:30 | Outpatient (OUT) | payer MEDICAID, SELFPAY ==
--- OUTSIDE RECORDS SUMMARY | 2024-11-05 09:50 | XMS_ITS | Encounter Summary ---
Author Organization [facility] Address [address] [place] [address] Care Team Providers Care Commercial Center Manager Name Role Phone Unavailable Primary Care Provider Unavailabl e Reason for Visit * Reason Comments Routine Visit Encounter Details Date Type Department Care Team ([facility] Contact Info) Description 11/05/2024 9:50 AM EDT Routine [facility] [address] [place] [phone] Durga Gibson DO [address] [place] [address] First trimester ([facility]); 11 weeks gestation of ([facility]) Social History Tobacco Use Types Packs/Day Years Used Date Smoking Tobacco: Never Assessed Estimated Date of Delivery Comme nts Yes 05/27/2025 Based on Ultraso und Sex and Gender Information Value Date Recorded Sex Assigned at Female 07/13/2024 5:09 AM EDT Legal Sex Female 9:35 PM EDT Gender Identity Female 07/13/2024 5:09 AM EDT Sexual Orientation Straight 07/13/2024 5: 09 AM EDT documented as of this encounter Last Filed Vital Signs Vital Sign Reading Time Taken Comments Blood Pressure 104/70 11/05/2024 9:46 AM EDT Pulse - - Temperature - - Respiratory Rate - - Oxygen Saturation - - Inhaled Oxygen Concentration - - Weight 77.6 kg (171 lb) 11/05/2024 9:46 AM EDT Height - - Body Mass Index 31.28 10/09/2024 9:24 AM EDT documented in this encounter Plan of Treatment Upcoming Encounters Date Type Department Care Team (Late st Contact Info) Description 12/03/2024 10:30 AM EDT Routine [facility] [address] [place] [phone] Rena Eaton NP [address] [place] [address] documented as of this encounter Procedures Procedure Name Priority Date/Time Associated Diagnosis Comments POCT URINALYSIS DIPSTICK Routine 11/05/2024 9:52 AM EDT First trimester ([facility]) documented in this encounter Results * POCT urinalysis dipstick manually resulted (11/05/2024 9:52 AM EDT) Color, UA Yellow Clarity, UA Clear Glucose, UA Negative Negative - 2000(110) ++++ mg/dL Bilirubin, UA Negative Negative - 4(70) +++ mg/dL Ketones, UA Negative Negative - 160(16) ++++ mg/dL Spec Grav, UA 1.005 1 - 1.03 Blood, UA Negative Negative - 50 Nik/mcL pH, UA 6.0 5 - 9 Protein, UA Negative Negative - 2000(20) ++++ mg/dL Urobilinogen, UA 0.2 0.2 - 12 mg/dL Leukocytes, UA Negative Negative - 500+++ Topher/mcL Nitrite, UA Negative Negative - Positive Urine 11/05/2024 9:52 AM EDT Durga Gibson DO POINT OF CARE TEST ENTER/EDIT OR DERABLES Final Result documented in this encounter Visit Diagnoses Diagnosis First trimester ([facility]) state, incidental 11 weeks gestation of ([facility]) documented in this encounter
--- OUTSIDE RECORDS SUMMARY | 2024-11-07 09:36 | XMS_ITS | Clinical Summary ---
Author Organization [facility] Address [address] [place] [address] Care Team Providers Care Clock Assembler Name Role Phone Unavailable Primary Care Provider Unavailabl e Allergies Active Allergy Reactions Criticality Noted Date Comments Prednisone Anxiety Low 07/13/2024 Increased HR Medications MV-Min-Fe Fum-FA-DHA ( 1 PO) Take by mouth Active Progesterone 200 MG suppositoryIndi cations:History of miscarriage Insert 200 mg into the vagina at bedtime Insert suppository vaginally every night at bedtime until 12 weeks gestation 30 suppository 2 09/15/19 25 025 Encounters Date Type Department Care Team Description 11/05/2024 9:50 AM [place] [phone] Durga Gibson DO First trimester ([facility]); 11 weeks gestation of ([facility]) 11/05/2024 [place] [phone] Durga Gibson DO 10/09/2024 9:00 [place] [phone] GA: 7w1d 10/09/2024 8:30 AM EDT [place] [phone] Missed menses; Positive urine test ([facility]) 10/03/2024 Travel 09/16/2024 Clinisync Result Encounter [facility] External Department Unsolicited Durga Gibson, DO 09/14/2024 Clinisync Result Encounter NOMS External Department Unsolicited PaigeDurga, DO 09/14/2024 Telephone [facility] Jeanie DOBBS [address] [place] [phone] Marilu Pearce MA from Last 3 Months Social History Tobacco [...] (171 lb) 11/05/2024 9:46 AM EDT Height 157.5 cm (5' 2 ) 10/09/2024 9:24 AM EDT Body Mass Index 31.28 10/09/2024 9:24 AM EDT Plan of Treatment Upcoming Encounters Date Type Department Care Team (Late st Contact Info) Description 12/03/2024 10:30 AM EDT Routine [facility] Jeanie DOB[facility] [address] [place] [phone] Rena Eaton, MIKE [address] [place] [phone] Procedures Procedure Name Priority Date/Time Associated Diagnosis Comments POCT URINALYSIS DIPSTICK Routine 11/05/2024 9:52 AM EDT First trimester ([facility]) POCT , URINE Routine 10/09/2024 9:37 AM EDT Missed menses POCT URINALYSIS DIPSTICK Routine 10/09/2024 9:32 AM EDT Missed menses OB TRANSVAGINAL Routine 10/09/2024 8: 58 AM EDT Missed menses Positive urine test ([facility]) [facility] PREG QUANT HCG Routine 09/16/2024 9: 56 AM EDT [facility] PREG QUANT HCG Routine 09/14/2024 10 :50 AM EDT from Last 3 Months Results * POCT urinalysis dipstick manually resulted (11/05/2024 9:52 AM EDT) Only the most recent of2 resultswithin the time period is included. Color, UA Yellow Clarity, UA Clear Glucose, [...] CARE TEST ENTER/EDIT OR DERABLES Final Result * (ABNORMAL) POCT , urine manually resulted (10/09/2024 9:37 AM EDT) Preg Test, Ur Positive Negative Urine 10/09/2024 9:37 AM EDT us Durga Paige DO POINT OF CARE TEST ENTER/EDIT OR DERABLES Final Result * US OB transvaginal (10/09/2024 8:58 AM EDT) Anatomical Region Laterality Modality Body Ultrasound 10/13/2024 12:2 9 PM EDT Impressions 10/13/2024 12:35 PM EDT Findings consistent with a live intrauterine gestation, current sonographic age of 7 weeks and 1 day resulting in an estimated date of delivery of May 27, 2025 TRANSCRIBED BY: ELECTRONICALLY SIGNED BY: Joseph Gracia MD Narrative 10/13/2024 12:35 PM EDT FINDINGS: A single intrauterine gestational sac is present. No subchorionic hemorrhage. A single pole is present. Normal heart rate at 162 beats per minute. Yolk sac also is seen. Current sonographic age is 7 weeks and 1 day based on the crown-rump length measurement of 10 mm. Based on this age, current estimated date of delivery is May 27, 2025. No pelvic fluid or adnexal mass present. Cervical length is 3.9 cm, closed. Procedure Note Joseph Gracia MD - 10/13/2024 FINDINGS: A single intrauterine gestational sac is present. No subchorionichemorrhage. A single pole is present. Normal heart rate at162 beats per minute. Yolk sac also is seen. Current sonographic age is7 weeks and 1 day based on the crown-rump length measurement of 10 mm.Based on this age, current estimated date of delivery is May 27, 2025.No pelvic fluid or adnexal mass present. Cervical length is 3.9 cm,closed. IMPRESSION: Findings consistent with a live intrauterine gestation, currentsonographic age of 7 weeks and 1 day resulting in an estimated date ofdelivery of May 27, 2025 TRANSCRIBED BY: ELECTRONICALLY SIGNED BY: Joseph Gracia MD us Durga Paige DO IMG OB US PROCEDURES Final Resul t * [facility] PREG QUANT HCG (09/16/2024 9:56 AM EDT) Only the most recent of2 resultswithin the time period is included. HCG QUANTITATIVE 280 mIU/mL [facility] Comment: 5-50 0.2-1 WEEK 50-500 1-2 WEEKS 100-5,000 2-3 WEEKS 500-10,000 3-4 WEEKS 1,000-50,000 4-5 WEEKS 10,000-100,000 5-6 WEEKS 15,000-200,000 6-8 WEEKS 10,000-100,000 2-3 MONTHS 09/16/2024 9:56 AM EDT 09/16/2024 9:57 AM EDT Narrative [facility] - 09/16/2024 10:39 AM EDT Durga Gibson DO CLINISYNC Final Result [facility] from Last 3 Months Insurance [employer]
--- OUTSIDE RECORDS SUMMARY | 2024-11-07 09:36 | XMS_ITS | Encounter Summary ---
Author Organization [facility] Address [address] [place] [address] Care Team Providers Care Manager Foreign Name Role Phone Unavailable Primary Care Provider Unavailabl e Encounter Details Date Type Department Care Team (Late Contact Info) Description 11/05/2024 Bamboo flowsheet [facility] [address] [place] [phone] Durga Gbison DO [address] [facility] [address] [place], [facility] Social History Tobacco Use Types Packs/Day Years [...] AM EDT documented as of this encounter Plan of Treatment Upcoming Encounters Date Type Department Care Team (Late Contact Info) Description 12/03/2024 10:30 AM EDT Routine [facility] DOBBS [address] [place] [address] Rena Eaton, MIKE [address] [facility] [place] [phone] documented as of this encounter Visit Diagnoses Not on filedocumented in this encounter
--- OUTSIDE RECORDS SUMMARY | 2024-11-07 09:36 | XMS_ITS | Clinical Summary ---
Author Organization [employer] [facility] tem Address [id number] [address] [place] [address] Care Team Providers Care Transport Tech Name Role Phone Services, [facility] Primary Care Provider Allergies Active Allergy Reactions [...] nts Yes 02/28/2025 No known active problems Family History Medical [...] 07/07/2024 1:06 PM EDT Plan of Treatment Health Maintenance Due Date Last Done Comments Adult BMI Follow Up Plan 02/28/2022 Chlamydia Screening 10/07/2024 10/08/2023, 05/21/2023, 08/10/2022, Additional history exists Influenza Vaccine 11/09/2024 Depression Screening 02/04/2025 02/05/2024 Adult BMI Screening 07/07/2025 07/07/2024 Tobacco Screening 11/05/2025 11/05/2024 DTaP,Tdap and Td Vaccines (6 - Td or Tdap) 11/14/2026 11/14/2016, 07/16/2005, 2004, Additional history exists Medical Devices Not on file Procedures Procedure Name Priority Date/Time Associated Diagnosis Comments CHLAMYDIA/GC BY PCR DAVIDA SWAB Routine 10/08/2023 9:16 AM EDT Screening for STD (sexually transmitted disease) from Last 3 Months or Most Recently Relevant to Health Maintenance Results * Chlamydia/GC by PCR Davida Swab (10/08/2023 9:16 AM EDT) Specimen source CERVIX 9:16 PM EDT LAKIA Chlamydia DNA PCR Negative Negative^N egative 10/09/2023 11:35 AM EDT [facility] Comment: Chlamydia trachomatis not detected by nucleic acid amplification. This does not exclude the possibility of infection because results are dependent on adequate specimen collection. Gonorrhea DNA PCR Negative Negative^N egative 10/09/2023 11:35 AM EDT [facility] Comment: Neisseria gonorrhoeae not detected by nucleic acid amplification. This does not exclude the possibility of infection because results are dependent on adequate specimen collection. GENS 10/08/2023 9:16 AM EDT 10/08/2023 9:16 PM EDT us Erna Villagomez MD MICROBIOLOGY - GENERAL ORDERAB LES Final Result [facility] [address] [place] [address] from Last 3 Months or Most Recently Relevant to Health Maintenance Insurance [employer] * Guarantor: SYSTEM GENERATED Account Type Relation to Patient Date of Phone Billing Address Personal/Family Care Teams Transport Tech Relationship Specialty Start Date End Date Services, [facility] [address] [place], [place] PCP - General Family Medicine 07/07/24
--- OUTSIDE RECORDS SUMMARY | 2024-11-07 09:36 | XMS_ITS | Encounter Summary ---
Author Organization [employer] [facility] tem Address [id number] [place] [address] Care Team Providers Care Research Laboratory Manager Name Role Phone Services, [facility] Primary Care Provider Reason for Visit * Reason Comments Med Refill Encounter Details Date Type Department Care Team ([facility] Contact Info) Description 02/19/2022 Refill [facility] Ob[facility]necology [address] [facility] [place] [phone] Thi Sin DO [address] [place], [place] [phone] Dysmenorrhea treated with oral contraceptive; Dysuria Social [...] B/C refill to be sent to [facility] * Telephone Encounter - Thi Sin DO - 02/19/2022 2:05 PM EST Pt will need to schedule a follow up apt in March for annual well visit. documented in this encounter Plan of Treatment Not on file documented as of this encounter Visit Diagnoses Diagnosis Dysmenorrhea treated with oral contraceptive Dysuria documented in this encounter Additional Health Concerns Infection Onset Date Last Indicated Resolved Time COVID-19 Positive 08/20/2023 08/20/2023 09/10/2023 11:12 PM EDT COVID-19 Rule-Out 01/30/2024 01/30/2024 01/30/2024 3:34 AM EST documented as of this encounter Care Teams Research Laboratory Manager Relationship Specialty Start Date End Date Services, [facility] [address] [place], [place] PCP - General Family Medicine 07/07/24 documented as of this encounter
--- OUTSIDE RECORDS SUMMARY | 2024-11-07 09:36 | XMS_ITS | Encounter Summary ---
Author Organization [facility] [employer] [facility] tem Address [id number] [place] [address] Care Team Providers Care Android Ios Developer Name Role Phone Services, [facility] Primary Care Provider Encounter Details Date Type Department Care Team ([facility] st Contact Info) Description 02/04/2023 Orders Only [facility] Ob[facility]etric[facility]necology [address] [place] [address] Thalia Coronado APRN-KEYSHA [address] [place], [place] [phone] Social History Tobacco Use Types Packs/Day Years [...] as of this encounter Plan of Treatment Not on file documented as of this encounter Visit Diagnoses Not on filedocumented in this encounter Additional Health Concerns Infection Onset Date Last Indicated Resolved Time COVID-19 Positive 08/20/2023 08/20/2023 09/10/2023 11:12 PM EDT COVID-19 Rule-Out 01/30/2024 01/30/2024 01/30/2024 3:34 AM EST documented as of this encounter Care Teams Android Ios Developer Relationship Specialty Start Date End Date Services, [facility] [address] [place], [place] PCP - General Family Medicine 07/07/24 documented as of this encounter
--- OUTSIDE RECORDS SUMMARY | 2024-11-07 09:36 | XMS_ITS | Clinical Summary ---
Author Organization [facility] Address [address], [address] [place] [address] Care Team Providers Care Battery Installer Name Role Phone Lori Mak DO Primary Care Provider [phone] Allergies No known active allergies Medications norelgestromin-et [...] Specimen Description .URINE 12/22/2018 4:30 PM EDT [facility] C. trachomatis DNA ,Urine NEGATIVE NEGATIVE 12/22/2018 4:30 PM EDT [facility] Comment: CHLAMYDIA TRACHOMATIS DNA not detected by [...] Urine NEGATIVE NEGATIVE 12/22/2018 4:30 PM EDT [facility] Comment: NEISSERIA GONORRHOEAE DNA not detected by [...] EDT 12/22/2018 6:14 PM EDT Thalia Hearn CONNIE CLEANER - CNM MICROBIOLOGY - GENERA L ORDERABLES Final Result [facility] [address] [place] [address], [facility] [phone] [address] [phone] from Last 3 Months or Most Recently Relevant to Health Maintenance Insurance [facility] [employer] Care Teams Battery Installer Relationship Specialty Start Date End Date Lori Mak DO PCP - General Pediatrics 05/08/21
[2024-11-07 10:09] LABS: Hematocrit 38.9 % (36.0-48.0); Hemoglobin 13.1 g/dL (12.0-16.0); Immature Granulocytes Abs Auto 0.03 10^3/uL (0.00-0.03); Immature Granulocytes Pct Auto 0.2 % (0.0-0.5); Lymphocytes Absolute Auto 2.0 10^3/uL (1.2-3.8); Mean Corpuscular HGB Conc 33.7 g/dL (29.9-35.2); Mean Corpuscular Hemoglobin 29.6 pg (26.7-34.0); Mean Corpuscular Volume 87.8 fL (81.0-99.0); Platelet Count 261 10^3/uL (150-450); Red Blood Count 4.43 10^6/uL (4.20-5.40); White Blood Count 12.0 10^3/uL (4.0-11.0)
[2024-11-07 11:09] LABS: Cannabinoid Screen Urine NEGATIVE (NEGATIVE); Methamphetamines Screen Urine NEGATIVE (NEGATIVE); Tricyclic Antidepressant Urine NEGATIVE (NEGATIVE)
[2024-11-08 08:08] LABS: Rubella Antibodies, IgG 1.80 index (Immune >0.99)
[2024-11-08 10:08] LABS: Rapid Plasma Reagin, Quant Non Reactive titer (NonRea<1:1)
== END 2024-11-07 09:31 | disposition home or self-care (01) ==
PROVIDERS: Visit Provider Obstetrics & Gynecology
DX: Z34.01 Encounter for supervision of normal first pregnancy, first trimester (principal); N92.6 Irregular menstruation, unspecified
CPT/HCPCS: 36415; 80307; 83036; 85025; 86592; 86762; 86803; 86850; 86900; 86901; 87086; 87340; 87389

== ENCOUNTER 2025-01-04 08:29 | Outpatient (OUT) | payer OTHER, MEDICAID, SELFPAY ==
--- OUTSIDE RECORDS SUMMARY | 2024-12-30 07:22 | XMS_ITS | Encounter Summary ---
Author Organization [facility] tem Address [facility]-[id number] [address] [place] [address] Care Team Providers Care Supervisor Frame Sample And Pattern Name Role Phone Services, [facility] Primary Care Provider Reason for Visit * ReasonCommentsEar ProblemPt states right ear pain for the past 2 and a half weeks. Also c/o congestion. Sore throat also. Encounter Details DateTypeDepartmentCare Team (Latest Contact Info)Yylpqyrklel59/22/2025 7:22 AM EDT - 12/30/2024 8:02 AM EDTEmergency [facility] [address] [place] [phone] Garcia Redding MD [address] [place] [address] Right ear pain (Primary Dx); Myringosclerosis of right ear; Nasal congestion; Sore throat Discharge Disposition: Home Social History Tobacco UseTypesPacks/DayYears UsedDateSmoking Tobacco: NeverPassive Smoke Exposure: YesSmokeless Tobacco: NeverAlcohol UseStandard Drinks/WeekComments Never0 (1 standard drink = 0.6 oz pure alcohol)PHQ-2AnswerDate RecordedTotal Cellp702/27/2024ChildcareAnswerDate VtskcyxbIjqnjvqjrMznwlwp07/12/2019Employment AnswerDate AocqsdxgXntfpgvnmjRivicuf46/12/2019Hunger ScreeningAnswerDate RecordedWithin the past 12 months we worried whether our food would run out before we got money to buy more.Never True12/30/2024Within the past 12 months the food we bought just didn't last and we didn't have money to get more.Never True12/30/2024Purpose - LifeAnswerDate RecordedPurpose and direction in life Wzqujkd85/22/2021Estimated Date of QmjwirogDyxpvlqpGph33/21/2025Sex and Gender InformationValueDate RecordedSex Assigned at BirthNot on fileLegal Sex Olqrpb6110/14/2014 12:02 PM EDTGender IdentityNot on fileSexual OrientationNot on filedocumented as of this encounter Last Filed Vital Signs Vital SignReadingTime TakenCommentsBlood Gyonrfkt063/7612/30/2024 7:27 AM EDT Olzwi118612/30/2024 7:27 AM UKQStellelsqkh59.4 ??C (97.6 ??F)12/30/2024 7:27 AM EDTRespiratory Rate--Oxygen Jvhgwyjcgl23%12/30/2024 7:27 AM EDTInhaled Oxygen Concentration--Oxnlhp26.5 kg (173 lb)12/30/2024 7:27 AM SFMFwenzx930.5 cm (5' 2 )12/30/2024 7:27 AM EDTBody Mass Index31.6412/30/2024 7:27 AM EDTdocumented in this encounter Discharge Instructions * Discharge Instructions* Garcia Redding MD - 12/30/2024 7:39 AM EDT As we discussed please call and schedule follow up with your primary care physician in the next fewdays for re-evaluation and to discuss today's findings, there is some scarring on your eardrum, if this continues to cause pain or decreased hearing than you may need further evaluation by ENT. If you develop any worsening pain, throat swelling, difficulty swallowing, fevers, any other worsening orconcerning symptoms return to the emergency department. I did send a prescription for Claritin which she may take to help with allergies which I feel may be related to your symptoms. * Attachments The following attachments cannot be sent through Care Everywhere. * Sore Throat? Adult ED (Hungarian) * Ear Pain ED (Hungarian) documented in this encounter Medications at Time of Discharge MedicationSigDispense QuantityRefillsLast FilledStart DateEnd acetaminophen (TYLENOL) 160 mg/5 mL solution Take 20.5 mL (650 mg total) by mouth every 8 (eight) hours as needed for pain or fever for up to 5 days. 60 mL / loratadine (CLARITIN) 10 mg tablet Take 1 tablet (10 mg total) by mouth in the morning for 10 doses. 10 tablet /03/2024 norethindrone-e.estradioL-iron (MICROGESTIN 24 FE) 1 mg-20 mcg (24)/75 mg (4) per tablet Indications:Oral contraceptive pill surveillanceTake 1 tablet by mouth in the morning. 84 tablet PNV 119-iron fum-folic acid 29 mg iron- 1 mg tablet Take 1 tablet by mouth in the morning. 30 tablet 07/07/2024documented as of this encounter Plan of Treatment Not on file documented as of this encounter Visit Diagnoses Diagnosis Right ear pain- Primary Unspecified otalgia Myringosclerosis of right ear Nasal congestion Other diseases of nasal cavity and sinuses Sore throat Acute pharyngitis documented in this encounter Administered Medications Medication OrderMAR ActionAction DateDoseRateSite acetaminophen (TYLENOL) 160 mg/5 mL suspension 650 mg 650 mg, oral, Once, On Sat12/30/24 at 0743, For 1 dose Given12/30/2024 7:52 AM MOE035 mgdocumented in this encounter Active and Recently Administered Medications Times are shown in EDT.Medication Order// acetaminophen (TYLENOL) 160 mg/5 mL suspension 650 mg (COMPLETED) 650 mg, oral, Once, On Sat12/30/24 at 0743, For 1 dose * 0752 (Given - Provider: Saman Toth Jr. RN) documented in this encounter Additional Health Concerns AssessmentNoted TimePHQ-9 Depression Total Score: 2:42 PM EST documented as of this encounter Care Teams Team MemberRelationshipSpecialtyStart DateEnd [place] [id number] [place], [place] PCP - GeneralFamily Medicine07/07/24documented as of this encounter
--- OUTSIDE RECORDS SUMMARY | 2025-01-04 08:34 | XMS_ITS | Encounter Summary ---
Author Organization [facility] tem Address [facility] [address] [place] [address] Care Team Providers Care Simulation Educator Name Role Phone Services, [facility] Primary Care Provider Encounter Details DateTypeDepartmentCare Team (Latest Contact Info)Eurtfhscxdi62/22/2025Travel Social History Tobacco UseTypesPacks/DayYears UsedDateSmoking Tobacco: NeverPassive Smoke Exposure: YesSmokeless Tobacco: NeverAlcohol UseStandard Drinks/WeekComments Never0 (1 standard drink = 0.6 oz pure alcohol)PHQ-2AnswerDate RecordedTotal Aubmw337/27/2024ChildcareAnswerDate FhjpwzueXnpkbrjroGpccuwl30/12/2019Employment AnswerDate TlrhrlhfAuoubjnjzhMtaczsk14/12/2019Hunger ScreeningAnswerDate RecordedWithin the past 12 months we worried whether our food would run out before we got money to buy more.Never True12/30/2024Within the past 12 months the food we bought just didn't last and we didn't have money to get more.Never True12/30/2024Purpose - LifeAnswerDate RecordedPurpose and direction in life Hfixkru26/22/2021Estimated Date of SmturvomKcervgmtGds35/21/2025Sex and Gender InformationValueDate RecordedSex Assigned at BirthNot on fileLegal Sex Ywyusc7510/14/2014 12:02 PM EDTGender IdentityNot on fileSexual OrientationNot on filedocumented as of this encounter Plan of Treatment Not on file documented as of this encounter Visit Diagnoses Not on filedocumented in this encounter Additional Health Concerns AssessmentNoted TimePHQ-9 Depression Total Score: 411 2:42 PM EST documented as of this encounter Care Teams Team MemberRelationshipSpecialtyStart DateEnd Date Services, [facility] [address] [place], [place] PCP - GeneralFamily Medicine07/07/24documented as of this encounter
--- OUTSIDE RECORDS SUMMARY | 2025-01-04 08:34 | XMS_ITS | Clinical Summary ---
Author Organization [facility] Address [address] [place] [address] Care Team Providers Care Director Of Premium Seat Sales Name Role Phone Unavailable Primary Care Provider Unavailabl e Allergies Active AllergyReactionsCriticalityNoted DateCommentsPrednisoneAnxietyLow 08/20/2023 Increased HR Medications MedicationSigDispense QuantityRefillsLast FilledStart DateEnd DateStatus MV-Min-Fe Fum-FA-DHA ( 1 PO) Take by mouthActive ondansetron ODT (Zofran-ODT) 4 MG disintegrating tablet Indications:NauseaTake 1 tablet (4 mg) by mouth every 6 (six) hours if needed for nausea or vomiting 30 tablet Expired metroNIDAZOLE (Flagyl) 500 MG tablet Indications:BV (bacterial vaginosis)Take 1 tablet (500 mg) by mouth in the morning and 1 tablet (500 mg) before bedtime. Do all this for 7 days. Do not drink alcohol while taking this medication. 14 tablet 51Expired Encounters DateTypeDepartmentCare WxyrXacremnifao40/15/2025bstract [facility] [address] [place] [address] Durga Gibson DO 12/04/2024Telephone [facility] [address] [address] Rena Eaton NP 12/03/2024 10:30 AM EDTRoutine [facility] [address] [place] [address] Rena Eaton, MIKE Second trimester ([facility]); 15 weeks gestation of ([facility]); Exposure to STD; Screening, , for anatomic survey ([facility]); Need for maternal serum alpha-protein (MSAFP) screening ([facility])12/03/2024 External Result Encounter [facility] External Department Unsolicited Rena Eaton, MIKE 5Bamboo flowsheet [facility] [address] [place] [address] Rena Eaton, MIKE 12/02/20247964Edqyue73/22/2025Telephone [facility] [place] [address] Durga Gibson DO 11/07/2024linisync Result Encounter [facility] External Department Unsolicited Durga Gibson DO 11/05/2024 9:50 AM EDTRoutine [facility] [address] Durga Gibson, First trimester ([facility]); 11 weeks gestation of ([facility])5Bamboo flowsheet [facility] [address] Durga Gibson DO 10/09/2024 9:00 [place] [address] GA: 7w1d10/09/2024 8:30 AM EDTAncillary [place] [address] Missed menses; Positive urine test ([facility])from Last 3 Months Social History Tobacco UseTypesPacks/DayYears UsedDateSmoking Tobacco: Never Assessed Estimated Date of IzoweoumFktqltrfUkc10/19/2026ased on UltrasoundSex and Gender InformationValueDate RecordedSex Assigned at TzupsPxexea54/05/2025 5:09 AM EDT Legal AerQstggy30/15/2023 9:35 PM EDTGender ZllpiocqYkusko42/05/2025 5:09 AM EDT Sexual RwobvnfykpaFtltxgzt76/05/2025 5:09 AM EDT Last Filed Vital Signs Vital SignReadingTime TakenCommentsBlood Mhkxhymk600/7009 10:54 AM EDT Pulse--Temperature--Respiratory Rate--Oxygen Saturation--Inhaled Oxygen Concentration--Raxzkt94.8 kg (167 lb)12/03/2024 10:54 AM GISFjrfed324.5 cm (5' 2 )10/09/2024 9:24 AM EDTBody Mass Index30.5408 9:24 AM EDT Plan of Treatment DateTypeDepartmentCare Team (Latest Contact Info)Awazrkizert21/30/2025 9:30 AM EDTAncillary Procedure [facility] [address] [place] [address] [place] [phone] 01/07/2025 10:30 AM EDTRoutine [facility] [address] [place] [address] [place] [phone] Meredith Castro PA [address] [place], [place] [phone] Procedures Procedure NamePriorityDate/TimeAssociated DiagnosisCommentsRECURRENT VAGINITIS (HTRX)Fyrbkll6612/03/2024 12:03 PM EDT POCT URINALYSIS KIJMQNLHDyypvvg07/25/2025 10:55 AM EDT Second trimester ([facility]) HBSAG OICWODOfhqtni59/30/2025 9:52 AM EDT RAPID PLASMA REAGIN, NWZKHByiiawo30/30/2025 9:52 AM EDT HIV AB/P24 AG WITH OMGVAKZfutycq27/30/2025 9:52 AM EDT HCV ANTIBODY RFX TO QUANT SUBLbbxrqp58/30/2025 9:52 AM EDT ALL RUBELLA IGG IPSrpufrx21/30/2025 9:52 AM EDT ALL TYPE AND KMPLNVNqlcexl33/30/2025 9:52 AM EDT MLR HEMOGLOBIN Y5DSlgvmpv11/30/2025 9:52 AM EDT ALL CBC WITH AUTO OSAFFusgyuf30/30/2025 9:52 AM EDT TBH DRUG SCREEN RAPID (URINE)Vnxcdzl6211/07/2024 9:40 AM EDT POCT URINALYSIS PCCVQSLICbuwxmh31/28/2025 9:52 AM EDT First trimester ([facility]) POCT , SKTBIJeekbkn06/01/2025 9:37 AM EDT Missed menses POCT URINALYSIS JTSIOLEJSajqlsc23/01/2025 9:32 AM EDT Missed menses US OB LWJAXSCCKBUBYatklwf61/01/2025 8:58 AM EDT Missed menses Positive urine test ([facility]) from Last 3 Months Results * (ABNORMAL) RECURRENT VAGINITIS (HTRX) (12/03/2024 12:03 PM EDT)ComponentValue Ref RangeTest MethodAnalysis TimePerformed AtPathologist SignatureATOPOBIUM HKAXWRU89.362(A)19.961 - 24.689 ppm12/04/2024 7:40 AM EDTHealthTrackRx at LabPortATOPOBIUM VAGINAEDetected(A)19.961 - 24.689 ppm12/04/2024 7:40 AM EDT [facility] at [facility]De[facility] CenterBVAB 2,3 (BACTERIAL VAGINOSIS ASSOCIATED BACTERIA 2, 3); MOBILUNCUS SPP23.01(A)19.961 - 24.689 ppm12/04/2024 7:40 AM EDT [facility] at LabDeacon[facility] Pointe CenterBVAB 2,3 (BACTERIAL VAGINOSIS ASSOCIATED BACTERIA 2, 3); MOBILUNCUS SPPDetected(A)19.961 - 24.689 ppm12/04/2024 7:40 AM EDT [facility] at LabPortCANDIDA ALBICANS, PARAPSILOSIS, QIDQCCIKDU057.000 - 30.347 ppm12/04/2024 7:40 AM EDTHealthTrackRx at LabPortCANDIDA ALBICANS, PARAPSILOSIS, TROPICALISNot Goqgdqoo39.000 - 30.347 ppm12/04/2024 7:40 AM EDT [facility] at LabPortCANDIDA MJHXYKAI229.000 - 31.618 ppm12/04/2024 7:40 AM EDTHealthTrackRx at LabPortCANDIDA GLABRATANot Lekvizps99.000 - 31.618 ppm 12/04/2024 7:40 AM EDTHealthTrackRx at LabPortCANDIDA ONRKQH596.000 - 30.873 ppm12/04/2024 7:40 AM EDTHealthTrackRx at LabPortCANDIDA KRUSEINot Detected 23.000 - 30.873 ppm12/04/2024 7:40 AM EDTHealthTrackRx at [facility] CenterPortCHLAMYDIA YZBHSJYWJWU682.000 - 31.586 ppm12/04/2024 7:40 AM EDTHealthTrackRx at [facility] CHLAMYDIA TRACHOMATISNot Jpebavut26.000 - 31.586 ppm12/04/2024 7:40 AM EDT [facility] CenterGARDNERELLA WARQCNUDP87.811(A)19.961 - 24.689 ppm 12/04/2024 7:40 AM EDTHealthTrackRx at [facility] Medical CenterGARDNERELLA VAGINALISDetected(A) 19.961 - 24.689 ppm12/04/2024 7:40 AM EDTHealthTrackRx at [facility] Medical CenterMEGASPHAERA (TYPES 1, 2)019.961 - 24.689 ppm12/04/2024 7:40 AM EDTHealthTrackRx at LabDe[facility] MEGASPHAERA (TYPES 1, 2)Not Oemsstvm13.961 - 24.689 ppm12/04/2024 7:40 AM EDT [facility] CenterNEISSERIA RZORKOPAAHC887.000 - 32.587 ppm12/04/2024 7:40 AM EDTHealthTrackRx at [facility] CenterNEISSERIA GONORRHOEAENot Qbzuzpxv59.000 - 32.587 ppm12/04/2024 7:40 AM EDTHealthTrackRx at LabDeacon[facility]inte CenterTRICHOMONAS VAGINALIS0 23.000 - 31.995 ppm12/04/2024 7:40 AM EDTHealthTrackRx at [facility] CenterTRICHOMONAS VAGINALISNot Yhbtmyew16.000 - 31.995 ppm12/04/2024 7:40 AM EDTHealthTrackRx at [facility] Medical CenterMYCOPLASMA ASMDNPFAND645.961 - 24.689 ppm12/04/2024 7:40 AM EDT [facility] CenterMYCOPLASMA GENITALIUMNot Cbyjjccv21.961 - 24.689 ppm 12/04/2024 7:[address] [facility], C; MEFA21.108(A)23.000 - 27.500 ppm12/04/2024 7:[address] [facility], C; MEFADetected (A)23.000 - 27.500 ppm12/04/2024 7:40 AM EDTHealthTrackRx at [facility] Medical CenterTET B, TET M22.042(A)23.000 - 27.500 ppm12/04/2024 7:40 AM EDTHealthTrackRx at [facility] CenterTET B, TET MDetected(A)23.000 - 27.500 ppm12/04/2024 7:40 AM EDTHealthTrackRx at [facility] Medical CenterSpecimen (Source)Anatomical Location / LateralityCollection Method / VolumeCollection TimeReceived LpjrMraajo16/25/2025 12:03 PM EDT09/ 3:32 AM EDT Narrative Authorizing ProviderResult TypeResult StatusRena Eaton NPLAB BLOOD ORDERABLESFinal ResultPerforming OrganizationAddressCity/State/ZIP CodePhone Number [facility] [address] [address] * POCT urinalysis dipstick manually resulted (12/03/2024 10:55 AM EDT) Only the most recent of3 resultswithin the time period is included. ComponentValueRef RangeTest MethodAnalysis TimePerformed AtPathologist Signature Color, UAYellowClarity, UAClearGlucose, UANegativeNegative - 2000(110) ++++ mg/dLBilirubin, UANegativeNegative - 4(70) +++ mg/dLKetones, UANegativeNegative - 160(16) ++++ mg/dLSpec Grav, UA1.0151 - 1.03Blood, UANegativeNegative - 50 Nik/mcLpH, UA6.05 - 9Protein, UANegativeNegative - 2000(20) ++++ mg/dL Urobilinogen, UA1.00.2 - 12 mg/dLLeukocytes, UANegativeNegative - 500+++ Topher/mcL Nitrite, UANegativeNegative - PositiveSpecimen (Source)Anatomical Location / LateralityCollection Method / VolumeCollection TimeReceived OsikMampj19/25/2025 10:55 AM EDT Narrative Authorizing ProviderResult TypeResult StatusRena Eaton NPPOINT OF CARE TEST ENTER/EDIT ORDERABLESFinal Result * HBSAG SCREEN (11/07/2024 9:52 AM EDT)ComponentValueRef RangeTest Method Analysis TimePerformed AtPathologist SignatureHBSAG SCREENNegativeNegativeTBH Comment: Performed at: ??CB - [facility] [address] ??[id number] Integration Software Engineer: Fabio Hdoge PhD, Phone: ??[phone] Specimen (Source)Anatomical Location / LateralityCollection Method / Volume Collection TimeReceived Time11/07/2024 9:52 AM EDT11/07/2024 9:54 AM EDT Narrative [facility] - 11/08/2024 10:08 AM EDT Authorizing ProviderResult TypeResult StatusCorey Paige DOLAB BLOOD ORDERABLES Final ResultPerforming OrganizationAddressty/State/ZIP CodePhone Number [facility] * RAPID PLASMA REAGIN, QUANT (11/07/2024 9:52 AM EDT)ComponentValueRef RangeTest MethodAnalysis TimePerformed AtPathologist SignatureRAPID PLASMA REAGIN, QUANT Non ReactiveNonRea<1:1 titerTBHComment: Please Note: This test does not meet current guidelines for screening and diagnosis of syphilis. This test is intended for following treatment response in patients being treated for syphilis infection. To screen for syphilis infection, a reflex cascade that includes both RPR and a treponema-specific assay should be utilized, such as Treponema pallidum (Syphilis) Screening [place] (327845) or Rapid Plasma Reagin (RPR) Test With Reflex to Quantitative RPR and Confirmatory Treponema pallidum Antibodies (887511). Performed at: ??[facility] ??[id number] Integration Software Engineer: Fabio Hodge PhD, Phone: ??[phone] Specimen (Source)Anatomical Location / LateralityCollection Method / Volume Collection TimeReceived Time11/07/2024 9:52 AM EDT11/07/2024 9:54 AM EDT [facility] - 11/08/2024 10:08 AM EDT Authorizing ProviderResult TypeResult StatusCorey Paige DOLAB BLOOD ORDERABLES Final ResultPerforming OrganizationAddressty/State/ZIP CodePhone Number [facility] * HIV AB/P24 AG WITH REFLEX (11/07/2024 9:52 AM EDT)ComponentValueRef RangeTest MethodAnalysis TimePerformed AtPathologist SignatureHIV AB/P24 AG SCREENNon ReactiveNon ReactiveTBHComment: HIV-1/HIV-2 antibodies and HIV-1 p24 antigen were NOT detected. There is no laboratory evidence of HIV infection. HIV Negative Performed at: ??[facility] ??[id number] Integration Software Engineer: Fabio Hodge PhD, Phone: ??[phone] Specimen (Source)Anatomical Location / LateralityCollection Method / Volume Collection TimeReceived Time11/07/2024 9:52 AM EDT11/07/2024 9:54 AM EDT Narrative [facility] - 11/08/2024 8:08 AM EDT Authorizing ProviderResult TypeResult StatusCorey Paige DOLAB BLOOD ORDERABLES Final ResultPerforming OrganizationAddressty/State/ZIP CodePhone Number [facility] * HCV ANTIBODY RFX TO QUANT PCR (11/07/2024 9:52 AM EDT)ComponentValueRef Range Test MethodAnalysis TimePerformed AtPathologist SignatureHCV ABNon ReactiveNon ReactiveTBHINTERPRETATION:Comment.TBHComment: Not infected with HCV unless early or acute infection is suspected (which may be delayed in an immunocompromised individual), or other evidence exists to indicate HCV infection. Specimen (Source)Anatomical Location / LateralityCollection Method / Volume Collection TimeReceived Time11/07/2024 9:52 AM EDT11/07/2024 9:54 AM EDT Narrative [facility] - 11/08/2024 8:08 AM EDT Authorizing ProviderResult TypeResult StatusCorey Paige DOLAB BLOOD ORDERABLES Final ResultPerforming OrganizationAddressCity/State/ZIP CodePhone Number [facility] * MLR HEMOGLOBIN A1C (11/07/2024 9:52 AM EDT)ComponentValueRef RangeTest Method Analysis TimePerformed AtPathologist SignatureGLYCOHEMOGLOBIN A1C4.94.5 - 6.2 %TBHComment: ADA RECOMMENDED LIMIT 4.0 - 6.0 ADA THERAPEUTIC TARGET < 7.0 ACTION SUGGESTED > 7.0 ESTIMATED AVERAGE PURWGAP22ni/dLTBHSpecimen (Source)Anatomical Location / LateralityCollection Method / VolumeCollection TimeReceived Time11/07/2024 9:52 AM EDT11/07/2024 9:54 AM EDT Narrative [facility] - 11/07/2024 10:42 AM EDT Authorizing ProviderResult TypeResult StatusCorey Paige DOCLINISYNCFinal Result Performing OrganizationAddressCity/State/ZIP CodePhone Number [facility] * ALL TYPE AND SCREEN (11/07/2024 9:52 AM EDT)ComponentValueRef RangeTest Method Analysis TimePerformed AtPathologist SignatureBLOOD TYPEO NegativeTBHANTIBODY SCREENNEGATIVETBHSpecimen (Source)Anatomical Location / LateralityCollection Method / VolumeCollection TimeReceived Time11/07/2024 9:52 AM EDT11/07/2024 9:54 AM EDT Narrative [facility] - 11/07/2024 11:55 AM EDT [facility] , ?? Authorizing ProviderResult TypeResult StatusCorey Paige DOCLINISYNCFinal Result Performing OrganizationAddressCity/State/ZIP CodePhone Number [facility] * ALL RUBELLA IGG AB (11/07/2024 9:52 AM EDT)ComponentValueRef RangeTest Method Analysis TimePerformed AtPathologist SignatureRUBELLA ANTIBODIES, IGG1.80 Immune >0.99 indexTBHComment: Non-immune <0.90 ?Equivocal ??0.90 - 0.99 Immune >0.99 Performed at: ??[facility] - [facility] [address] ??[id number] Integration Software Engineer: Fabio Hodge PhD, Phone: ??[phone] Specimen (Source)Anatomical Location / LateralityCollection Method / Volume Collection TimeReceived Time11/07/2024 9:52 AM EDT11/07/2024 9:54 AM EDT Narrative [facility] - 11/08/2024 8:08 AM EDT Authorizing ProviderResult TypeResult StatusCorey Paige DOCLINISYNCFinal Result Performing OrganizationAddressCity/State/ZIP CodePhone Number [facility] * (ABNORMAL) ALL CBC WITH AUTO DIFF (11/07/2024 9:52 AM EDT)ComponentValueRef RangeTest MethodAnalysis TimePerformed AtPathologist SignatureTBH WBC12.0(H) 4.0 - 11.0 10 3/uLTBHTBH RBC4.434.20 - 5.40 10 6/uLTBHTBH HGB13.112.0 - 16.0 g/dLTBHTBH HCT38.936.0 - 48.0 %TBHTBH MCV87.881.0 - 99.0 fLTBHTBH MCH29.626.7 - 34.0 pgTBHTBH MCHC33.729.9 - 35.2 g/dLTBHTBH RDW12.011.0 - 15.0 %TBHTBH PLT 142662 - 450 10 3/uLTBHTBH MPV10.69.5 - 13.5 fLTBHNEUTROPHILS PERCENT AUTO75.5 (H)43.0 - 75.0 %TBHLYMPHOCYTES PERCENT AUTO16.5(L)20.5 - 60.0 %TBHMONOCYTES PERCENT AUTO4.71.7 - 12.0 %TBHTBH EO %2.70.9 - 7.0 %TBHBASOPHILS PERCENT AUTO 0.40.2 - 2.0 %TBHIMMATURE GRANULOCYTES PCT AUTO0.20.0 - 0.5 %TBHNEUTROPHILS ABSOLUTE AUTO9.1(H)1.4 - 6.5 10 3/uLTBHLYMPHOCYTES ABSOLUTE AUTO2.01.2 - 3.8 10 3/uLTBHMONOCYTES ABSOLUTE AUTO0.60.3 - 0.8 10 3/uLTBHTBH EO #0.30.0 - 0.7 10 3/uLTBHBASOPHILS ABSOLUTE AUTO0.10.0 - 0.1 10 3/uLTBHIMMATURE GRANULOCYTES ABS AUTO0.030.00 - 0.03 10 3/uLTBHSpecimen (Source)Anatomical Location / LateralityCollection Method / VolumeCollection TimeReceived Time11/07/2024 9:52 AM EDT11/07/2024 9:54 AM EDT Narrative [facility] - 11/07/2024 10:21 AM EDT Authorizing ProviderResult TypeResult StatusCorey Paige DOCLINISYNCFinal Result Performing OrganizationAddressCity/State/ZIP CodePhone Number [facility] * TBH DRUG SCREEN RAPID (URINE) (11/07/2024 9:40 AM EDT)ComponentValueRef Range Test MethodAnalysis TimePerformed AtPathologist SignatureCANNABINOID SCREEN URINENEGATIVENEGATIVETBHPHENCYCLIDINE SCREEN URINENEGATIVENEGATIVETBHCOCAINE SCREEN URINENEGATIVENEGATIVETBHMETHAMPHETAMINES SCREEN URINENEGATIVENEGATIVE TBHOPIATE SCREEN URINENEGATIVENEGATIVETBHAMPHETAMINE SCREEN URINENEGATIVE NEGATIVETBHBENZODIAZEPINES SCREEN URINENEGATIVENEGATIVETBHTRICYCLIC ANTIDEPRESSANT URINENEGATIVENEGATIVETBHMETHADONE SCREEN URINENEGATIVENEGATIVE TBHBARBITURATES SCREEN URINENEGATIVENEGATIVETBHOXYCODONE SCREEN URINENEGATIVE NEGATIVETBHBUPRENORPHINE SCREEN URINENEGATIVENEGATIVETBHComment: DRUG CLASS TEST SYSTEM CUT-OFF CONCENTRATIONS ARE FOLLOWS: AMP (Amphetamine): 500 ng/mL BAR (Barbiturates): 200 ng/mL BZO (Benzodiazepines): 150 ng/mL BUP (Buprenorphine): 10 ng/mL ALEX (Cocaine): 150 ng/mL mAMP (Methamphetamine): 500 ng/mL MTD (Methadone): 200 ng/mL OPI (Opiates): 100 ng/mL OXY (Oxycodone): 100 ng/mL PCP (Phencyclidine): 25 ng/mL THC (Cannabinoids): 50 ng/mL TCA (Trycyclic Antidepressants): 300 ng/mL Specimen (Source)Anatomical Location / LateralityCollection Method / Volume Collection TimeReceived Time11/07/2024 9:40 AM EDT11/07/2024 9:54 AM EDT Narrative [facility] - 11/07/2024 11:09 AM EDT Authorizing ProviderResult TypeResult StatusCorey Paige DOCLINISYNCFinal Result Performing OrganizationAddressCity/State/ZIP CodePhone Number [facility] * (ABNORMAL) POCT , urine manually resulted (10/09/2024 9:37 AM EDT) ComponentValueRef RangeTest MethodAnalysis TimePerformed AtPathologist SignaturePreg Test, UrPositiveNegativeSpecimen (Source)Anatomical Location / LateralityCollection Method / VolumeCollection TimeReceived TimeUrine 10/09/2024 9:37 AM EDT Narrative Authorizing ProviderResult TypeResult StatusCorey Paige DOPOINT OF CARE TEST ENTER/EDIT ORDERABLESFinal Result * OB transvaginal (10/09/2024 8:58 AM EDT)Anatomical RegionLateralityModality BodyUltrasoundSpecimen (Source)Anatomical Location / LateralityCollection Method / VolumeCollection TimeReceived Time10/13/2024 12:29 PM EDT Impressions 10/13/2024 12:35 PM EDT Findings consistent with a live intrauterine gestation, current sonographic age of 7 weeks and 1 day resulting in an estimated date of delivery of May 27, 2025 TRANSCRIBED BY: ? ELECTRONICALLY SIGNED BY: Joseph Gracia MD Narrative 10/13/2024 12:35 PM EDT FINDINGS: A single intrauterine gestational sac is present. ??No subchorionic hemorrhage. ??A single pole is present. Normal heart rate at 162 beats per minute. ??Yolk sac also is seen. ?? Current sonographic age is 7 weeks and 1 day based on the crown-rump length measurement of 10 mm. ??Based onthis age, current estimated date of delivery is May 27, 2025. ??No pelvic fluid or adnexal mass present. ??Cervical length is 3.9 cm, closed. Procedure Note [...] BY: ELECTRONICALLY SIGNED BY: Joseph Gracia MD Authorizing ProviderResult TypeResult StatusCorey Paige CONCEPCION OB US PROCEDURES Final Result from Last 3 Months
--- OUTSIDE RECORDS SUMMARY | 2025-01-04 08:34 | XMS_ITS | Clinical Summary ---
Author Organization [facility] Address [address], [address] [place] [address] Care Team Providers Care Bobbin Loose End Finder Name Role Phone Lori Mak DO Primary Care Provider [phone] Allergies No known active allergies Medications MedicationSigDispense QuantityRefillsLast FilledStart DateEnd DateStatus norelgestromin-ethinyl estradiol (ORTHO EVRA) 150-35 MCG/24HR Indications:Screen for STD (sexually transmitted disease),Menorrhagia with irregular cyclePlace 1 patch onto the skin every 7 days 3 patch Active Active Problems No known active problems Family History Medical HistoryRelationNameCommentsKidney stonesMotherRelationNameStatusComments Mother Social History Tobacco UseTypesPacks/DayYears UsedDateSmoking Tobacco: NeverSmokeless Tobacco: Never Tobacco Cessation:Counseling Given: Not Answered Alcohol UseStandard Drinks/WeekCommentsNever0 (1 standard drink = 0.6 oz pure alcohol)CommentsNoSex and Gender InformationValueDate RecordedSex Assigned at BirthNot on fileLegal ArwUnxgig95/10/2013 5:04 PM ESTGender Identity Not on fileSexual OrientationNot on file Last Filed Vital Signs Vital SignReadingTime TakenCommentsBlood Xvxcparh819/7810 4:21 PM EDT Pulse--Dxubqiziewz11.1 ??C (98.7 ??F)10/22/2022 3:02 PM EDTRespiratory Rate-- Oxygen Saturation--Inhaled Oxygen Concentration--Vpnvnu43.2 kg (124 lb) 10/22/2022 3:02 PM OUMAhbegf835 cm (5' 3 )10/22/2022 3:02 PM EDTBody Mass Index 21.9708 3:02 PM EDT Plan of Treatment Health MaintenanceDue DateLast DoneCommentsDepression Whkunq7502/29/2016Varicella vaccine (1 of 2 - 13+ 2-dose series)02/28/2017HIV dxijzx7902/28/2019HPV vaccine (1 - 3-dose series)02/28/2019Chlamydia/GC xluqlb67Meningococcal B vaccine (1 of 2 - Standard)2020Hepatitis C tbheqd312DTaP/Tdap/Td vaccine (1 - Tdap)02/28/2023Hepatitis B vaccine (1 of 3 - 19+ 3-dose series) 02/28/2023Flu vaccine (#1)10/09/2024OVID-19 Vaccine (1 - season) 2024Hepatitis A vaccineAged OutNo longer eligible based on patient's age to complete this topicHib vaccineAged OutNo longer eligible based on patient's age to complete this topicMeningococcal (ACWY) vaccineAged OutNo longer eligible based on patient's age to complete this topicPneumococcal 0-49 years VaccineAged OutNo longer eligible based on patient's age to complete this topicPolio vaccine Aged OutNo longer eligible based on patient's age to complete this topic Procedures Procedure NamePriorityDate/TimeAssociated DiagnosisCommentsC.TRACHOMATIS N.GONORRHOEAE DNA, JCTEZFwaiizh40/14/2019 4:30 PM EDT Screen for STD (sexually transmitted disease) from Last 3 Months or Most Recently Relevant to Health Maintenance Results * C.trachomatis N.gonorrhoeae DNA, Urine (12/22/2018 4:30 PM EDT)ComponentValue Ref RangeTest MethodAnalysis TimePerformed AtPathologist SignatureSpecimen Description.URINE12/22/2018 4:30 PM EDTMERCY LABORATORIESC. trachomatis DNA ,CxmyjZONJTNVZSYZPHNBC46/14/2019 4:30 PM EDTMERCY LABORATORIESComment: CHLAMYDIA TRACHOMATIS DNA not detected by nucleic acid amplification. ? This test is intended for medical purposes only and is not valid for the evaluation of suspected sexual abuse or for other forensic purposes. In certain contexts, culture may be required to meet applicable laws and regulations for diagnosis of C. trachomatis and N. gonorrhoeae infections. Per 2014 ??CDC recommendations, this test does not include confirmation of positive results by an alternative nucleic acid target. N. gonorrhoeae DNA, FbjakOIZGRBOSJKNNAWPB06/14/2019 4:30 PM EDTMERCY LABORATORIESComment: NEISSERIA GONORRHOEAE DNA not detected by nucleic acid amplification. ? This test is intended for medical purposes only and is not valid for the evaluation of suspected sexual abuse or for other forensic purposes. In certain contexts, culture may be required to meet applicable laws and regulations for diagnosis of C. trachomatis and N. gonorrhoeae infections. Per 2014 ??CDC recommendations, this test does not include confirmation of positive results by an alternative nucleic acid target. Specimen (Source)Anatomical Location / LateralityCollection Method / Volume Collection TimeReceived BqomMfqjt75/14/2019 4:30 PM EDT1 6:14 PM EDT Narrative Authorizing ProviderResult TypeResult StatusKathlsonja Hearn APRN - CN MICROBIOLOGY - GENERAL ORDERABLESFinal ResultPerforming OrganizationAddress City/State/ZIP CodePhone Number [facility] [address] [place] [address], [facility] [phone] [place] [place] [address] [place], [place] [address] [phone] from Last 3 Months or Most Recently Relevant to Health Maintenance Insurance Care Teams Team MemberRelationshipSpecialtyStart DateEnd Date Lori Mak DO PCP - GeneralPediatrics2
--- OUTSIDE RECORDS SUMMARY | 2025-01-04 08:34 | XMS_ITS | Clinical Summary ---
Author Organization [facility] tem Address [id number] [address] [place] [address] Care Team Providers Care Central Office Operator Supervisor Name Role Phone Services, Formerly [facility], [facility]–1983 Primary Care Provider Allergies Active AllergyReactionsCriticalityNoted WrkwEnfaloiyJjvvijrypf32/11/2024 Medications MedicationSigDispense QuantityRefillsLast FilledStart DateEnd DateStatus norethindrone-e.estradioL-iron (MICROGESTIN 24 FE) 1 mg-20 mcg (24)/75 mg (4) per tablet Indications:Oral contraceptive pill surveillanceTake 1 tablet by mouth in the morning. 84 tablet 4Active PNV 119-iron fum-folic acid 29 mg iron- 1 mg tablet Take 1 tablet by mouth in the morning. 30 tablet 5Active loratadine (CLARITIN) 10 mg tablet Take 1 tablet (10 mg total) by mouth in the morning for 10 doses. 10 tablet 5Active acetaminophen (TYLENOL) 160 mg/5 mL solution Take 20.5 mL (650 mg total) by mouth every 8 (eight) hours as needed for pain or fever for up to 5 days. 60 mL /5Active Active Problems Estimated Date of EoakbvuwVbakugqwZku30/21/2025 No known active problems Encounters DateTypeDepartmentCare DiuqDgpvauiyudc48/22/2025 7:22 AM EDT - 12/30/2024 8:[address] [facility] [address] [id number] Garcia Redding MD Right ear pain (Primary Dx); Myringosclerosis of right ear; Nasal congestion; Sore throat Discharge Disposition: Home12/30/2024Travelfrom Last 3 Months Family History Medical HistoryRelationNameCommentsDeep vein thrombosisMaternal GrandfatherSkin cancerMaternal GrandfatherHeart diseaseMaternal GrandmotherBreast cancerMaternal great-grandmotherNo Known ProblemsMotherCancerPaternal GrandfatherDiabetes Paternal GrandfatherLeukemiaPaternal GrandfatherColon cancerNeg HxOvarian cancer Neg HxPancreatic cancerNeg HxUterine cancerNeg HxRelationNameStatusComments FatherAliveMaternal GrandfatherAliveMaternal GrandmotherAliveMaternal great-grandmotherMotherAlivePaternal GrandfatherAlivePaternal GrandmotherAlive Social History Tobacco UseTypesPacks/DayYears UsedDateSmoking Tobacco: NeverPassive Smoke Exposure: YesSmokeless Tobacco: Never Tobacco Cessation:Counseling Given: Not Answered Alcohol UseStandard Drinks/WeekCommentsNever0 (1 standard drink = 0.6 oz pure alcohol)PHQ-2AnswerDate RecordedTotal Ztofx031/27/2024ChildcareAnswerDate VgmzbiupSitlqrgkjBbgnceq98/12/2019EmploymentAnswerDate RecordedEmploymentUnknown 08/20/2018Hunger ScreeningAnswerDate RecordedWithin the past 12 months we worried whether our food would run out before we got money to buy more.Never True12/30/2024Within the past 12 months the food we bought just didn't last and we didn't have money to get more.Never True12/30/2024Purpose - LifeAnswerDate RecordedPurpose and direction in mzfiXdcyaqc98/22/2021Estimated Date of JekwxlyuPhkqbsdbQak22/21/2025Sex and Gender InformationValueDate RecordedSex Assigned at BirthNot on fileLegal YsfQxlqvj24/06/2015 12:02 PM EDTGender IdentityNot on fileSexual OrientationNot on file Last Filed Vital Signs Vital SignReadingTime TakenCommentsBlood Wqvemvqk965/7610/ 7:27 AM EDT Eukgv2834/ 7:27 AM ZOPLyeydxwxsmb58.4 ??C (97.6 ??F)12/30/2024 7:27 AM EDTRespiratory Ybne956707/07/2024 1:06 PM EDTOxygen Zwpbacweub56%12/30/2024 7:27 AM EDTInhaled Oxygen Concentration--Olxkty04.5 kg (173 lb)12/30/2024 7:27 AM EDT Wfymyd300.5 cm (5' 2 )12/30/2024 7:27 AM EDTBody Mass Index31.6412/30/2024 7:27 AM EDT Plan of Treatment Health MaintenanceDue DateLast DoneCommentsAdult BMI Follow Up Plan02/28/2022 Chlamydia Hcdwyybec82, 05/21/2023, 08/10/2022, Additional history existsInfluenza Mteakkz9411/09/2024Depression Qwtoecczd42/27/2025 02/05/2024dult BMI Hpozdsfek33Tobacco Zomdxwjhj31/22/2026 12/30/2024DTaP,Tdap and Td Vaccines (6 - Td or Tdap), 07/16/2005, 2004, Additional history exists Medical Devices Not on file Procedures Procedure NamePriorityDate/TimeAssociated DiagnosisCommentsCHLAMYDIA/GC BY PCR DAVIDA XLFLBeejehz82/30/2024 9:16 AM EDT Screening for STD (sexually transmitted disease) from Last 3 Months or Most Recently Relevant to Health Maintenance Results * Chlamydia/GC by PCR Davida Swab (10/08/2023 9:16 AM EDT)ComponentValueRef Range Test MethodAnalysis TimePerformed AtPathologist SignatureSpecimen sourceCERVIX 10/08/2023 9:16 PM EDTSUNQUESTChlamydia DNA PCRNegativeNegative^Negative 10/09/2023 11:35 AM [facility] LABComment: ? Chlamydia trachomatis not detected by nucleic acid amplification. This does not exclude the possibility of infection because results are dependent on adequate specimen collection. ? Gonorrhea DNA PCRNegativeNegative^Fbqulyfl73/31/2024 11:35 AM [facility] LABComment: ? Neisseria gonorrhoeae not detected by nucleic acid amplification. This does not exclude the possibility of infection because results are dependent on adequate specimen collection. ? Specimen (Source)Anatomical Location / LateralityCollection Method / Volume Collection TimeReceived UtpkHRKO21/30/2024 9:16 AM EDT10/08/2023 9:16 PM EDT Narrative Authorizing ProviderResult TypeResult StatusCorie Jessica Villagomez MDMICROBIOLOGY - GENERAL ORDERABLESFinal ResultPerforming OrganizationAddressCity/State/ZIP Code Phone Number [facility] [address], [address] [place] [address] from Last 3 Months or Most Recently Relevant to Health Maintenance Care Teams Team MemberRelationshipSpecialtyStart DateEnd Date Services, Formerly [facility], [facility] [address] [place], [place] PCP - GeneralFamily Medicine07/07/24
--- OUTSIDE RECORDS SUMMARY | 2025-01-04 08:34 | XMS_ITS | Encounter Summary ---
Author Organization [facility] Address [address] [place] [address] Care Team Providers Care Contract Lead Name Role Phone Unavailable Primary Care Provider Unavailabl e Encounter Details DateTypeDepartmentCare Team (Latest Contact Info)Qsprzpnwqgg27/15/2025bstract [facility] [address] [address] [place] [address] Durga Gibson DO [address], [facility] Social History Tobacco UseTypesPacks/DayYears UsedDateSmoking Tobacco: Never Assessed Estimated Date of FlsizresOicmbmbtKiu35/19/2026Based on UltrasoundSex and Gender InformationValueDate RecordedSex Assigned at AdsaiKomioa79/05/2025 5:09 AM EDT Legal RrmEhjllq01/15/2023 9:35 PM EDTGender MfejrzspMjewgw37/05/2025 5:09 AM EDT Sexual MrknyaqhnucEwnufzhq76/05/2025 5:09 AM EDTdocumented as of this encounter Plan of Treatment DateTypeDepartmentCare Team (Latest Contact Info)Cjrbwomhaxc01/30/2025 9:30 AM EDTAncillary Procedure [facility] [address] [address] [place] [address] 01/07/2025 10:30 AM EDTRoutine [facility] [address] [place] [address] Meredith Castro PA [address] [place] [address] [place] [address] documented as of this encounter Visit Diagnoses Not on filedocumented in this encounter
== END 2025-01-04 08:30 | disposition home or self-care (01) ==
PROVIDERS: Visit Provider Nurse Practitioner Family
DX: Z36.1 Encounter for antenatal screening for raised alphafetoprotein level (principal)
CPT/HCPCS: 36415; 82105

== ENCOUNTER 2025-02-13 08:58 | Outpatient (OUT) | payer OTHER, SELFPAY ==
--- OUTSIDE RECORDS SUMMARY | 2025-02-03 08:00 | XMS_ITS | Encounter Summary ---
Author Organization [facility] Address [address] [place] [address] Care Team Providers Care Office Correspondent Name Role Phone Unavailable Primary Care Provider Unavailabl e Encounter Details DateTypeDepartmentCare Team (Latest Contact Info)Kitbyjmdllo57/26/2025 8:00 AM ESTAncillary Procedure [facility] LUCION [address] [place] [address] Encounter for follow-up ultrasound of anatomy ([facility] Social History Tobacco UseTypesPacks/DayYears UsedDateSmoking Tobacco: Never Assessed Estimated Date of AfbtizcvSzuselmjKrn84/19/2026Based on UltrasoundSex and Gender InformationValueDate RecordedSex Assigned at ScjzrHztoba63/05/2025 5:09 AM EDT Legal WiyDjnbil47/15/2023 9:35 PM EDTGender JdojcdlnOouign16/05/2025 5:09 AM EDT Sexual HuxafpnwembVaqirfow21/05/2025 5:09 AM EDTdocumented as of this encounter Plan of Treatment DateTypeDepartmentCare Team (Latest Contact Info)Trjtziwaeng12/29/2025 8:30 AM ESTRoutine [facility] [address] [place] [address] Rena Eaton, MIKE [address] [place] [address] documented as of this encounter Procedures Procedure NamePriorityDate/TimeAssociated DiagnosisCommentsUS OB LIMITED 1+ FPDQKYNTaxxwaz19/26/2025 8:08 AM EST Encounter for follow-up ultrasound of anatomy ([facility]) documented in this encounter Results * US OB limited 1+ fetuses (02/03/2025 8:08 AM EST)Anatomical RegionLaterality ModalityBodyUltrasoundSpecimen (Source)Anatomical Location / Laterality Collection Method / VolumeCollection TimeReceived Time02/03/2025 11:41 AM EST Impressions 02/08/2025 7:28 AM EST Single viable intrauterine with adequate visualization of the cardiac and out flow tracts. TRANSCRIBED BY: ? ELECTRONICALLY SIGNED BY: Joseph Gracia MD Narrative 02/08/2025 7:28 AM EST FINDINGS: Single viable intrauterine , cephalic presentation, normal and cardiac activity, 149bpm. ?? Adequate visualization of the four-chamber heart and outflow tracts on the current exam. Procedure Note Joseph Gracia MD - 02/08/2025 FINDINGS: Single viable intrauterine , cephalic presentation, normal fetaland cardiac activity, 149 bpm. Adequate visualization of the four-chamber heart and outflow tracts on the current exam. IMPRESSION: Single viable intrauterine with adequate visualization of thecardiac and out flow tracts. TRANSCRIBED BY: ELECTRONICALLY SIGNED BY: Joseph Gracia MD Authorizing ProviderResult TypeResult StatusCorey Paige DOIMG OB US PROCEDURES Final Result documented in this encounter Visit Diagnoses Diagnosis Encounter for follow-up ultrasound of anatomy ([facility]) documented in this encounter
--- OUTSIDE RECORDS SUMMARY | 2025-02-09 09:50 | XMS_ITS | Encounter Summary ---
Author Organization [facility] Address [address] [place] [address] Care Team Providers Care Multi Line Claims Adjuster Name Role Phone Unavailable Primary Care Provider Unavailabl e Reason for Visit * ReasonCommentsRoutine Visit Encounter Details DateTypeDepartmentCare Team (Latest Contact Info)Snujkizghzq32/02/2025 9:50 AM ESTRoutine [facility] [address] [facility] [place] [phone] Durga Gibson DO [address] [facility] [place] [address] 24 weeks gestation of ([facility]); Second trimester ([facility]); Diabetes mellitus screening; Vaginal discharge; Heartburn during in second trimester ([facility]); Yeast infection Social History Tobacco UseTypesPacks/DayYears UsedDateSmoking Tobacco: Never Assessed Estimated Date of HcexmiklArfootvxEzw36/19/2026Based on UltrasoundSex and Gender InformationValueDate RecordedSex Assigned at QanrsXcpczj48/05/2025 5:09 AM EDT Legal SnmQlejhl91/15/2023 9:35 PM EDTGender CeharsloOuoacc33/05/2025 5:09 AM EDT Sexual ZoydqqbckotZorqpucq38/05/2025 5:09 AM EDTdocumented as of this encounter Last Filed Vital Signs Vital SignReadingTime TakenCommentsBlood Hofrqfuz534/6002/09/2025 9:55 AM EST Pulse--Temperature--Respiratory Rate--Oxygen Saturation--Inhaled Oxygen Concentration--Bnsskf33 kg (191 lb 12.8 oz)02/09/2025 9:55 AM ESTHeight--Body Mass Index35.0808 9:24 AM EDTdocumented in this encounter Progress Notes * Radha Rose, PRIEST - 02/09/2025 9:50 AM EST Reason for Appointment: Patient ID: Sb Cabrales is a 19 y.o. female who presents for Routine Visit Patient presents today for STD Check. and Return OB appointment. MEDICATIONS Current Outpatient Medications Medication Instructions omeprazole (PRILOSEC) 20 mg, Oral, Daily before breakfast, Do not crush or chew. MV-Min-Fe Fum-FA-DHA ( 1 PO) Take by mouth ALLERGIES Allergies Allergen Reactions Prednisone Anxiety Increased HR PROBLEMS Active Ambulatory Problems Diagnosis Date Noted No Active Ambulatory Problems Resolved Ambulatory Problems Diagnosis Date Noted No Resolved Ambulatory Problems No Additional Past Medical History HISTORY PAST MEDICAL HISTORY SOCIAL HISTORY History reviewed. No pertinent past medical history. Social History Tobacco Use Smoking status: Not on file Smokeless tobacco: Not on file Substance Use Topics Alcohol use: Not on file Drug use: Not on file FAMILY HISTORY No family history on file. SURGICAL HISTORY History reviewed. No pertinent surgical history. REVIEW OF SYSTEMS Review of Systems: Review of Systems Constitutional: Negative. HENT: Negative. Eyes: Negative. Respiratory: Negative. Cardiovascular: Negative. Gastrointestinal: Negative. Genitourinary: Negative. Musculoskeletal: Negative. Skin: Negative. Neurological: Negative. All other systems reviewed and are negative. Hematological: Negative. Endocrine: Negative. Allergic/Immunologic: Negative. OBJECTIVE Objective: Physical Exam Constitutional: Appearance: Normal appearance. She is well-developed. Genitourinary: Vulva normal. Cardiovascular: Rate and Rhythm: Normal rate and regular rhythm. Pulmonary: Effort: Pulmonary effort is normal. Breath sounds: Normal breath sounds. Abdominal: General: Bowel sounds are normal. There is no distension. Palpations: Abdomen is soft. Tenderness: There is no abdominal tenderness. There is no guarding or rebound. Musculoskeletal: General: No swelling. Normal range of motion. Right lower leg: No edema. Left lower leg: No edema. Neurological: Mental Status: She is alert and oriented to person, place, and time. Skin: General: Skin is warm and dry. Psychiatric: Mood and Affect: Mood normal. Behavior: Behavior normal. Vitals and nursing note reviewed. Exam conducted with a administration manager present. Vitals: Estimated body mass index is 35.08 kg/m?? as calculated from the following: Height as of 25: 5' 2 . Weight as of this encounter: 191 lb 12.8 oz. BP: 120/60 Patient's last menstrual period was 08/08/2024. Assessment/Plan ICD-10-CM 1. 24 weeks gestation of ([facility]) Z3A.24 POCT urinalysis dipstick manually resulted 2. Second trimester ([facility]) Z34.92 POCT urinalysis dipstick manually resulted 3. Diabetes mellitus screening Z13.1 CBC Glucose tolerance, 1 hour CBC Glucose tolerance, 1 hour 4. Vaginal discharge N89.8 SURESWAB(R) ADVANCED VAGINITIS PLUS, TMA CHLAMYDIA TRACHOMATIS (GENITO/STI) Neisseria gonorrhea DNA probe, direct 5. Heartburn during in second trimester ([facility]) O26.892 omeprazole (PriLOSEC) [address] capsule R12 Assessment/Plan Return OB: Patient presents today for a routine obstetrics appointment. Patient is currently 24w5d . Patient states she is doing well but has complaints of being tired due to current . Patient has verbalizes frequent movement. labor precautions was discussed/given. Cultures obtained. Pt given glucola order with instructions. Rx for diflucan and nystatin faxed to pharmacy Orders Placed This Encounter Procedures CBC Glucose tolerance, 1 hour CHLAMYDIA TRACHOMATIS (GENITO/STI) Neisseria gonorrhea DNA probe, direct POCT urinalysis dipstick manually resulted Follow Up: Patient is to return to office in 4 week for routine OB appointment. Documented by Radha Rose LPN on behalf of: Durga Gibson DO documented in this encounter Plan of Treatment DateTypeDepartmentCare Team (Latest Contact Info)Gbjutmizfbc27/29/2025 8:30 AM ESTRoutine [facility] [address] [place] [phone] Rena Eaton, WATCHMAKER APPRENTICE [address] [place] [phone] NameTypePriorityAssociated DiagnosesOrder ScheduleCBCLabRoutine Diabetes mellitus screening Expected: 02/09/2025 (Approximate), Expires: 02/09/2026Glucose tolerance, 1 hour LabRoutine Diabetes mellitus screening Expected: 02/09/2025 (Approximate), Expires: 02/09/2026SURESWAB(R) ADVANCED VAGINITIS PLUS, TMAPathology and CytologyRoutine Vaginal discharge Ordered: 02/09/2025HLAMYDIA TRACHOMATIS (GENITO/STI)LabRoutine Vaginal discharge Ordered: 02/09/2025Neisseria gonorrhea DNA probe, directLabRoutine Vaginal discharge Ordered: 02/09/2025documented as of this encounter Procedures Procedure NamePriorityDate/TimeAssociated DiagnosisCommentsPOCT URINALYSIS PODDXJGDTvxwmxp55/02/2025 10:03 AM EST 24 weeks gestation of ([facility]) Second trimester ([facility]) documented in this encounter Results * POCT urinalysis dipstick manually resulted (02/09/2025 10:03 AM EST)Component ValueRef RangeTest MethodAnalysis TimePerformed AtPathologist SignatureColor, UAYellowClarity, UAClearGlucose, UANegativeNegative - 2000(110) ++++ mg/dL Bilirubin, UANegativeNegative - 4(70) +++ mg/dLKetones, UANegativeNegative - 160(16) ++++ mg/dLSpec Grav, UA1.0101 - 1.03Blood, UANegativeNegative - 50 Nik/mcLpH, UA6.05 - 9Protein, UANegativeNegative - 2000(20) ++++ mg/dL Urobilinogen, UA1.00.2 - 12 mg/dLLeukocytes, UANegativeNegative - 500+++ Topher/mcLNitrite, UANegativeNegative - PositiveSpecimen (Source)Anatomical Location / LateralityCollection Method / VolumeCollection TimeReceived Time Urine12/04/2024 10:03 AM EST Narrative Authorizing ProviderResult TypeResult StatusCorey Paige DOPOINT OF CARE TEST ENTER/EDIT ORDERABLESFinal Result documented in this encounter Visit Diagnoses Diagnosis 24 weeks gestation of ([facility]) Second trimester ([facility]) state, incidental Diabetes mellitus screening Screening for diabetes mellitus Vaginal discharge Leukorrhea, not specified as infective Heartburn during in second trimester ([facility]) Yeast infection documented in this encounter
--- OUTSIDE RECORDS SUMMARY | 2025-02-13 09:01 | XMS_ITS | Clinical Summary ---
Author Organization [facility] Address [address] [place] [address] Care Team Providers Care Cattle Dealer Name Role Phone Unavailable Primary Care Provider Unavailabl e Allergies Active AllergyReactionsCriticalityNoted DateCommentsPrednisoneAnxietyLow 08/20/2023 Increased HR Medications MedicationSigDispense QuantityRefillsLast FilledStart DateEnd DateStatus MV-Min-Fe Fum-FA-DHA ( 1 PO) Take by mouthActive omeprazole (PriLOSEC) [address] capsule Indications:Gastroesophageal Reflux Disease,HeartburnTake 1 capsule (20 mg) by mouth in the morning. Take before meals. Do not crush or chew. 30 capsule ctive nystatin (Mycostatin) 223148 UNIT/GM powder Indications:Yeast infectionApply topically in the morning and in the evening and before bedtime. 15 g ctive metroNIDAZOLE (Flagyl) 500 MG tablet Indications:BV (bacterial vaginosis)Take 1 tablet (500 mg) by mouth in the morning and 1 tablet (500 mg) before bedtime. Do all this for 7 days. Do not drink alcohol while taking this medication. 14 tablet 5Active fluconazole (Diflucan) 150 MG tablet Indications:Yeast infectionTake 1 tablet (150 mg) by mouth 1 (one) time for 1 dose Repeat in 7 days if symptoms persist. 1 tablet Expired Encounters DateTypeDepartmentCare VbvnHdmgavvhtvb96/03/2025Telephone [facility] [address] [place] [address] [place] [address] Marilu Pearce [place] 02/09/2025 9:50 AM ESTRoutine [facility] [address] [place] [address] Durga Gibson, 24 weeks gestation of ([facility]); Second trimester ([facility]); Diabetes mellitus screening; Vaginal discharge; Heartburn during in second trimester ([facility]); Yeast paauqrxkm38/02/2025amboo flowsheet [facility] [address] [place] [address] Durga Gibson DO 02/03/2025 8:00 AM ESTAncillary Procedure [facility] [address] [place] [address] Encounter for follow-up ultrasound of anatomy ([facility])01/21/2025Telephone [facility] [address] [place] [address] Marilu Pearce [place] 01/20/2025Telephone [facility] [address] [facility] [place] [address] Marilu Pearce [place] 01/07/2025 10:30 AM EDTRoutine [facility] [address] [place] [address] Meredith Castro PA Second trimester ([facility]); 20 weeks gestation of ([facility])01/07/2025 9:30 AM EDTAncillary Procedure [facility] [address] [place] [address] Screening, , for anatomic survey ([facility])5Clinisync Result Encounter NOMS External Department Unsolicited Rena Eaton NP 12/23/2024bstract [facility] [address] [facility] [place] [address] Durga Gibson DO 12/04/2024Telephone [facility] Davalos [facility] [address] Rena Eaton NP 12/03/2024 10:30 AM EDTRoutine [facility] Daval[facility] [place] [address] Rena Eaton, MIKE Second trimester ([facility]); 15 weeks gestation of ([facility]); Exposure to STD; Screening, , for anatomic survey ([facility]); Need for maternal serum alpha-protein (MSAFP) screening ([facility])12/03/2024 External Result Encounter NOMS External Department Unsolicited Rena Eaton NP 12/03/2024amboo flowsheet [facility] [address] [place] [address] [place] [address] Rena Eaton, MIKE 12/02/20245883Jmyfer05/22/2025Telephone [facility] Davalos [facility] [address] Durga Gibson DO from Last 3 Months Social History Tobacco UseTypesPacks/DayYears UsedDateSmoking Tobacco: Never Assessed Estimated Date of HfbikvhuPqwzmidfKkr84/19/2026ased on UltrasoundSex and Gender InformationValueDate RecordedSex Assigned at ZfigvBjztbb08/05/2025 5:09 AM EDT Legal VtsQunonp66/15/2023 9:35 PM EDTGender SsyremomSuytbh38/05/2025 5:09 AM EDT Sexual NelbwvvpypyKilztdsg83/05/2025 5:09 AM EDT Last Filed Vital Signs Vital SignReadingTime TakenCommentsBlood Ilfnzbto882/6012 9:55 AM EST Pulse--Temperature--Respiratory Rate--Oxygen Saturation--Inhaled Oxygen Concentration--Fowije89 kg (191 lb 12.8 oz)02/09/2025 9:55 AM AJKEgzuyr057.5 cm (5' 2 )10/09/2024 9:24 AM EDTBody Mass Index35.0810/09/2024 9:24 AM EDT Plan of Treatment DateTypeDepartmentCare Team (Latest Contact Info)Obbbltvdrdb47/29/2025 8:30 AM ESTRoutine [facility] [address] [facility] [place] [address] Rena Eaton, [employer] [address] [facility] [place] [address] Procedures Procedure NamePriorityDate/TimeAssociated DiagnosisCommentsRECURRENT VAGINITIS (HTRX)Jlvttcu0502/09/2025 12:41 PM EST POCT URINALYSIS GRQPCXKYMcbchwp23/02/2025 10:03 AM EST 24 weeks gestation of ([facility]) Second trimester ([facility]) US OB LIMITED 1+ UCLVUBEAecuqug61/26/2025 8:08 AM EST Encounter for follow-up ultrasound of anatomy ([facility]) POCT URINALYSIS EPLNGSKOVmuqtns01/30/2025 11:08 AM EDT Second trimester ([facility]) US OB 14+ WEEKS ANATOMY OHSSRpatjvd23/30/2025 10:58 AM EDT Screening, , for anatomic survey ([facility]) AFP, SERUM, OPEN SPINA KBZOMUBflqhvw83/27/2025 9:15 AM EDT RECURRENT VAGINITIS (HTRX)Aurqcqg0012/03/2024 12:03 PM EDT POCT URINALYSIS ROUWHHEYIrgbuzm17/25/2025 10:55 AM EDT Second trimester ([facility]) from Last 3 Months Results * (ABNORMAL) RECURRENT VAGINITIS (HTRX) (02/09/2025 12:41 PM EST) Only the most recent of2 resultswithin the time period is included. ComponentValueRef RangeTest MethodAnalysis TimePerformed AtPathologist Signature ATOPOBIUM JBAPYMO67.131(A)19.961 - 24.689 ppm02/10/2025 7:52 AM ESTHealthTrackRx at LabPortATOPOBIUM VAGINAEDetected(A)19.961 - 24.689 ppm02/10/2025 7:52 AM EST [facility] at LabPortBVAB 2,3 (BACTERIAL VAGINOSIS ASSOCIATED BACTERIA 2, 3); MOBILUNCUS NXM734.961 - 24.689 ppm02/10/2025 7:52 AM ESTHealthTrackRx at LabPort BVAB 2,3 (BACTERIAL VAGINOSIS ASSOCIATED BACTERIA 2, 3); MOBILUNCUS SPPNot Sjgvzvtp49.961 - 24.689 ppm02/10/2025 7:52 AM ESTHealthTrackRx at LabPortCANDIDA ALBICANS, PARAPSILOSIS, QGAESBQJQO797.000 - 30.347 ppm02/10/2025 7:52 AM EST [facility] at LabPortCANDIDA ALBICANS, PARAPSILOSIS, TROPICALISNot Detected 23.000 - 30.347 ppm02/10/2025 7:52 AM ESTHealthTrackRx at LabPortCANDIDA CYZFGPUJ095.000 - 31.618 ppm02/10/2025 7:52 AM ESTHealthTrackRx at LabPort LEVON GLABRATANot Garmunhe15.000 - 31.618 ppm02/10/2025 7:52 AM EST [facility] at LabPortCANDIDA GFGOCJ451.000 - 30.873 ppm02/10/2025 7:52 AM EST [facility] at LabPortCANDIDA KRUSEINot Hwrmsfnt52.000 - 30.873 ppm02/10/2025 7:52 AM ESTHealthTrackRx at LabPortCHLAMYDIA AVRPIJMYMAH683.000 - 31.586 ppm 02/10/2025 7:52 AM ESTHealthTrackRx at LabPortCHLAMYDIA TRACHOMATISNot Detected 23.000 - 31.586 ppm12/05/2024 7:52 AM ESTHealthTrackRx at LabPortGARDNERELLA HGUVXCTTI97.508(A)19.961 - 24.689 ppm12/05/2024 7:52 AM ESTHealthTrackRx at LabPortGARDNERELLA VAGINALISDetected(A)19.961 - 24.689 ppm02/10/2025 7:52 AM EST [facility] at LabPortMEGASPHAERA (TYPES 1, 2)019.961 - 24.689 ppm12/05/2024 7:52 AM ESTHealthTrackRx at LabPortMEGASPHAERA (TYPES 1, 2)Not Pgmahmqj31.961 - 24.689 ppm02/10/2025 7:52 AM ESTHealthTrackRx at LabPortNEISSERIA GONORRHOEAE0 23.000 - 32.587 ppm12 7:52 AM ESTHealthTrackRx at LabPortNEISSERIA GONORRHOEAENot Dubpbqwo91.000 - 32.587 ppm02/10/2025 7:52 AM ESTHealthTrackRx at LabPortTRICHOMONAS RRBJRTJOV018.000 - 31.995 ppm02/10/2025 7:52 AM EST [facility] at LabPortTRICHOMONAS VAGINALISNot Luyaylmu41.000 - 31.995 ppm 02/10/2025 7:52 AM ESTHealthTrackRx at LabPortMYCOPLASMA DDHTFQGGJN815.961 - 24.689 ppm02/10/2025 7:52 AM ESTHealthTrackRx at LabPortMYCOPLASMA GENITALIUMNot Zlmfwygk31.961 - 24.689 ppm12 7:52 AM ESTHealthTrackRx at LabPortERMB, C; MEFA24.33(A)23.000 - 27.500 ppm02/10/2025 7:52 AM ESTHealthTrackRx at LabPort ERMB, C; MEFADetected(A)23.000 - 27.500 ppm/05/2024 7:52 AM ESTHealthTrackRx at LabPortTET B, TET M23.385(A)23.000 - 27.500 ppm02/10/2025 7:52 AM EST [facility] at [facility] HealthTET Yamil, BEL MDetected(A)23.000 - 27.500 ppm02/10/2025 7:52 AM ESTHealthTrackRx at Arbor HealthSpecimen (Source)Anatomical Location / LateralityCollection Method / VolumeCollection TimeReceived EzqcAbcyzh15/02/2025 12:41 PM EST02/10/2025 2:30 AM EST Narrative Authorizing ProviderResult TypeResult StatusCorey Paige DOLAB BLOOD ORDERABLES Final ResultPerforming OrganizationAddressCity/State/ZIP CodePhone Number [facility] LabStephanie [place] [id number] [place] [phone] * POCT urinalysis dipstick manually resulted (02/09/2025 10:03 AM EST) Only the most recent of3 resultswithin the [...] Location / LateralityCollection Method / VolumeCollection TimeReceived TkdsMvgth47/02/2025 10:03 AM EST Narrative Authorizing ProviderResult TypeResult StatusCorey Paige DOPOINT OF CARE TEST ENTER/EDIT ORDERABLESFinal Result * US OB limited 1+ fetuses (02/03/2025 [...] Joseph Gracia MD Authorizing ProviderResult TypeResult StatusCorey PaigeTu[facility] Medical Center [facility] US PROCEDURES Final Result * US OB 14+ weeks anatomy scan (01/07/2025 10:58 AM EDT)Anatomical Region LateralityModalityBodyUltrasoundSpecimen (Source)Anatomical Location / LateralityCollection Method / VolumeCollection TimeReceived Time01/07/2025 11:38 AM EDT Impressions 01/07/2025 11:48 AM EDT 1. Single, live intrauterine , current sonographic age of 20 weeks and 2 days, with an estimated date of delivery of May 25, 2025. 2. Suboptimal cardiac evaluation. ??Recommend follow-up imaging to further characterize the four chambers, septum, and outflow tracts. * ??Estimated Weight (g) by Percentile is based upon an accurate estimated age based onlast menstrual period. ?? TRANSCRIBED BY: ? ELECTRONICALLY SIGNED BY: Joseph Gracia MD Narrative 01/07/2025 11:48 AM EDT FINDINGS: A single, live intrauterine is present with normal cardiac rate of 146 ??beats per minute. Normal activity and amniotic fluid volume. Morphology is grossly normal with the exception of suboptimal visualization of the cardiac evaluation. The cervix is long and closed, 4.4 cm. ??The placenta is anterior, not associated with the cervical os. ??The current sonographic age is 20 weeks and 2 days, based on the following measurements: ?BPD ? 4.5 cm (19 weeks, 6 days) ?Head Circumference ?17.4 cm (19 weeks, 6 days) ?Abdominal Circumference ?16.4 cm (21 weeks, 3 days) ?Femur Length ?3.3 cm (20 weeks, 1 day) ?Placenta ? Anterior Grade I ? Weight (g) by Percentile ??84.2 % * These measurements result in an estimated date of delivery of May 25, 2025. ?? The current estimated weight is 373 grams (0 pounds, 13 ounces). ?? Procedure Note Joseph Gracia MD - 01/07/2025 FINDINGS: A single, live intrauterine is present with normal cardiacrate of 146 beats per minute. Normal activity and amniotic fluidvolume. Morphology is grossly normal with the exception of suboptimalvisualization of the cardiac evaluation. The cervix is long and closed,4.4 cm. The placenta is anterior, not associated with the cervical os.The current sonographic age is 20 weeks and 2 days, based on the followingmeasurements: BPD 4.5 cm (19 weeks, 6 days) Head Circumference 17.4 cm (19 weeks, 6 days) Abdominal Circumference 16.4 cm (21 weeks, 3 days) Femur Length 3.3 cm (20 weeks, 1 day) Placenta Anterior Grade I Weight (g) by Percentile 84.2 % * These measurements result in an estimated date of delivery of May. The current estimated weight is 373 grams (0 pounds, 13ounces). IMPRESSION: 1. Single, live intrauterine , current sonographic age of 20weeks and 2 days, with an estimated date of delivery of May 25, 2025. 2. Suboptimal cardiac evaluation. Recommend follow-up imaging to further characterize the four chambers, septum, and outflow tracts. * Estimated Weight (g) by Percentile is based upon an accurateestimated age based on last menstrual period. TRANSCRIBED BY: ELECTRONICALLY SIGNED BY: Joseph Gracia MD Authorizing ProviderResult TypeResult StatusKrnancy Bowenserly NPIMG OB US PROCEDURESFinal Result * AFP, SERUM, OPEN SPINA BIFIDA (01/04/2025 9:15 AM EDT)ComponentValueRef Range Test MethodAnalysis TimePerformed AtPathologist SignatureRESULTSReport.TBHTEST RESULTS:*Screen Negative*.TBHGEST. AGE ON COLLECTION DATE19.6. weeksTBHGESTAT. AGE BASED ONUltrasound.TBHComment: ?15.0 on 12/03/2024 Recalculations are not recommended when gestational dating by LMP and ultrasound are within 10 days. MATERNAL AGE AT EDD21.2. yrTBHRACECaucasian.XCEATKHXO498. lbsTBHINSULIN DEP DIABETESNo.TBHMULTIPLE GESTATIONNo.TBHAFP VALUE47.1. ng/mLTBHAFP MOM0.96.TBHOSBR RISK 1 [id number].TBHINTERPRETATIONComment.TBHComment: Interpretation: Screen Negative This result is screen negative for OSB. The AFP MoM calculated is based on the gestational age provided. MS-AFP can identify up to 80% of open neural tube defects. Closed neural tube defects and some open defects may not be detected by this test. This test does not screen for Down Syndrome or Trisomy 18. If screening for Down Syndrome or Trisomy 18 is desired, contact [facility] to discuss available options. ??The [employer] recommends amniocentesis be offered to women age 35 and older. COMMENT:Comment.TBHComment: Shamika Swenson, Ph.D., [facility] Director References: Available Upon Request. Multiples Of Median Cutoffs ?For AFP Elevations Tyson ?? 2.5 ? Black ?2.8 IDD ? 2.0 ? Twins ?4.5 ?Abbreviation Definitions IDD - Insulin Dep Diabetes OSBR - Open Spina Bifida Risk For further inquiries contact [employer] [facility] at [phone]. This test was developed and its performance characteristics determined by [employer]. It has not been cleared or approved by the Food and Drug Administration. Performed at: ??[facility] [address] [place], [place] ??[id number] Embedded Software Architect: Margarette Saldaña [facility], Phone: ??[phone] Specimen (Source)Anatomical Location / LateralityCollection Method / Volume Collection TimeReceived Time01/04/2025 9:15 AM EDT1 9:16 AM EDT Narrative [facility] - 01/06/2025 12:07 AM EDT N N ULTRASOUND [id number] 15 N 1 Y 167 N N N N N White/ Authorizing ProviderResult TypeResult StatusKristina Uma NPLAB BLOOD ORDERABLESFinal ResultPerforming OrganizationAddressCity/State/ZIP CodePhone Number [facility] from Last 3 Months Insurance
--- OUTSIDE RECORDS SUMMARY | 2025-02-13 09:01 | XMS_ITS | Encounter Summary ---
Author Organization [facility] Address [address] [place] [address] Care Team Providers Care Ncr Operator Name Role Phone Unavailable Primary Care Provider Unavailabl e Encounter Details DateTypeDepartmentCare Team (Latest Contact Info)Httphmaornr94/03/2025Telephone [facility] [address] [place] [address] Marilu Pearce MA Social History Tobacco UseTypesPacks/DayYears UsedDateSmoking Tobacco: Never Assessed Estimated Date of ClkjtertEdtcomkpGgv96/19/2026Based on UltrasoundSex and Gender InformationValueDate RecordedSex Assigned at QggchWsfmdx89/05/2025 5:09 AM EDT Legal SyeDpqnjj93/15/2023 9:35 PM EDTGender KrsiijvlWqwkxl95/05/2025 5:09 AM EDT Sexual GpwrthudrahMkpwnbqj80/05/2025 5:09 AM EDTdocumented as of this encounter Miscellaneous Notes * Telephone Encounter - Marilu Pearce MA - 02/10/2025 2:10 PM EST [facility] for pt regarding results and recommendations. Med sent documented in this encounter Plan of Treatment DateTypeDepartmentCare Team (Latest Contact Info)Kbgldrilevm43/29/2025 8:30 AM ESTRoutine [facility] [address] [place] [address] Rena Eaton, MIKE [address] [place] [address] [place] [address] documented as of this encounter Visit Diagnoses Diagnosis BV (bacterial vaginosis) Unspecified vaginitis and vulvovaginitis documented in this encounter
--- OUTSIDE RECORDS SUMMARY | 2025-02-13 09:02 | XMS_ITS | Encounter Summary ---
Author Organization [facility] Address [address] [place] [address] Care Team Providers Care Coach Operator Name Role Phone Unavailable Primary Care Provider Unavailabl e Encounter Details DateTypeDepartmentCare Team (Latest Contact Info)Bluugymjgbr95/02/2025amboo flowsheet [facility] [address] [place] [address] [place] [address] Durga Gibson DO [address] [place] [address] Dr [place], [facility] Social History Tobacco UseTypesPacks/DayYears UsedDateSmoking Tobacco: Never Assessed Estimated Date of NpytxaozOpqbfnmaTtd41/19/2026Based on UltrasoundSex and Gender InformationValueDate RecordedSex Assigned at NnyxwKtjioc52/05/2025 5:09 AM EDT Legal LvaTjqljf72/15/2023 9:35 PM EDTGender XatmdskpYxgool97/05/2025 5:09 AM EDT Sexual YbrqqfdqwojIwhpdsuf98/05/2025 5:09 AM EDTdocumented as of this encounter Plan of Treatment DateTypeDepartmentCare Team (Latest Contact Info)Kwueutvasic60/29/2025 8:30 AM ESTRoutine [facility] [address] [place] [address] [place] [address] Rena Eaton NP [address] [facility] [place] [address] documented as of this encounter Visit Diagnoses Not on filedocumented in this encounter
[2025-02-13 10:21] LABS: Hematocrit 36.8 % (36.0-48.0); Hemoglobin 12.3 g/dL (12.0-16.0); Immature Granulocytes Abs Auto 0.13 10^3/uL (0.00-0.03); Immature Granulocytes Pct Auto 0.9 % (0.0-0.5); Lymphocytes Absolute Auto 1.9 10^3/uL (1.2-3.8); Mean Corpuscular HGB Conc 33.4 g/dL (29.9-35.2); Mean Corpuscular Hemoglobin 30.1 pg (26.7-34.0); Mean Corpuscular Volume 90.2 fL (81.0-99.0); Platelet Count 242 10^3/uL (150-450); Red Blood Count 4.08 10^6/uL (4.20-5.40); White Blood Count 14.7 10^3/uL (4.0-11.0)
[2025-02-13 10:44] LABS: Glucose 1 Hour 119 mg/dL (<130)
== END 2025-02-13 08:59 | disposition home or self-care (01) ==
LOC: LAB 08:58
PROVIDERS: Visit Provider Obstetrics & Gynecology
DX: Z13.1 Encounter for screening for diabetes mellitus (principal)
CPT/HCPCS: 36415; 82950; 85025

== ENCOUNTER 2025-03-04 22:14 | Emergency (ER) | payer OTHER, SELFPAY ==
--- OUTSIDE RECORDS SUMMARY | 2025-03-04 22:23 | XMS_ITS | Encounter Summary ---
Author Organization [facility] Address [address] [place] [address] Care Team Providers Care Fiber Design Engineer Name Role Phone Unavailable Primary Care Provider Unavailabl e Encounter Details DateTypeDepartmentCare Team (Latest Contact Info)Kiboilmyqpd13/25/2025Travel Social History Tobacco UseTypesPacks/DayYears UsedDateSmoking Tobacco: Never Assessed Estimated Date of OwoeuyvyLcnbmaxbVrz09/19/2026Based on UltrasoundSex and Gender InformationValueDate RecordedSex Assigned at MdcyqFfpccv44/05/2025 5:09 AM EDT Legal TetRlerox33/15/2023 9:35 PM EDTGender AwlsmfaxXubitr72/05/2025 5:09 AM EDT Sexual OzwzrcjfreyOervllqv05/05/2025 5:09 AM EDTdocumented as of this encounter Plan of Treatment DateTypeDepartmentCare Team (Latest Contact Info)Yghtfobupct37/29/2025 8:30 AM ESTRoutine [facility] [address] [facility] [place] [address] Rena Etaon, MIKE [address] [facility] [place] [address] documented as of this encounter Visit Diagnoses Not on filedocumented in this encounter
--- OUTSIDE RECORDS SUMMARY | 2025-03-04 22:23 | XMS_ITS | Patient Health Record ---
Author Organization [facility] vices Address [address] [place], [place] [id number] Support Name Relationship Address Phone Brett Marroquin Guarantor Unknown [phone] Allergies No Known Allergies Reason For Referral No Information Immunizations Vaccine Route Administration Date Status Comme nts *DTaP (Infanrix)-VFC OTH Other/Miscellaneous 2004 Administered Status:Complet e ,Reason:Given or N/A *DTaP (Infanrix)-VFC OTH Other/Miscellaneous 2004 Administered Status:Complet e ,Reason:Given or N/A , Sequence #2 *DTaP (Infanrix)-VFC OTH Other/Miscellaneous 2004 Administered Status:Complet e ,Reason:Given or N/A , Sequence #3 *DTaP (Infanrix)-VFC IM Intramuscular 07/16/2005 Administered Status:Complet e ,Reason:Given or N/A , jpong (07/16/2005) after shots inf and 10-07-00 vis given/20 min wait c no reactions observed Solar Panel Installer: Denzel-Iker r Parent/[place] n: mom Sequence #4 *Hep A, ped/adol, 2 dose-VFC IM Intramuscular 11/14/2016 Administered Status:Complet e ,Reason:Given or N/A *Hep B, adult dosage-Private OTH Other/Miscellaneous 2004 Administered Status:Complet e ,Reason:Given or N/A *Hep B, adult dosage-Private OTH Other/Miscellaneous 2004 Administered Status:Complet e ,Reason:Given or N/A , Sequence #2 *Hep B, adult dosage-Private OTH Other/Miscellaneous 2004 Administered Status:Complet e ,Reason:Given or N/A , Sequence #3 *MMR-VFC OTH Other/Miscellaneous 04/03/2005 Administered Status:Complet e ,Reason:Given or N/A *Tdap (Adacel)-VFC IM Intramuscular 11/14/2016 Administere d Status:Complet e ,Reason:Given or N/A DTaP-Hep B-IPV OTH Other/Miscellaneous 2004 Administered Status:Complet e ,Reason:Given or N/A DTaP-Hep B-IPV OTH Other/Miscellaneous 2004 Administered Status:Complet e ,Reason:Given or N/A , Sequence #2 DTaP-Hep B-IPV OTH Other/Miscellaneous 2004 Administered Status:Complet e ,Reason:Given or N/A , Sequence #3 Hib (HbOC), 4 dose schedule OTH Other/Miscellaneous 2004 Administered Status:Complet e ,Reason:Given or N/A Hib (HbOC), 4 dose schedule OTH Other/Miscellaneous 2004 Administered Status:Complet e ,Reason:Given or N/A , Sequence #2 Hib (HbOC), 4 dose schedule OTH Other/Miscellaneous 2004 Administered Status:Complet e ,Reason:Given or N/A , Sequence #3 Hib (HbOC), 4 dose schedule IM Intramuscular 07/16/2005 Administered Status:Complet e ,Reason:Given or N/A , Solar Panel Installer: [employer] Sequence #4 Meningococcal KNX2O-WGA IM Intramuscular 11/14/2016 Administered Status:Complet e ,Reason:Given or N/A Pneumococcal conjugate PCV 7 OTH Other/Miscellaneous 2004 Administered Status:Complet e ,Reason:Given or N/A Pneumococcal conjugate PCV 7 OTH Other/Miscellaneous 2004 Administered Status:Complet e ,Reason:Given or N/A , Sequence #2 Pneumococcal conjugate PCV 7 OTH Other/Miscellaneous 2004 Administered Status:Complet e ,Reason:Given or N/A , Sequence #3 Pneumococcal conjugate PCV 7 IM Intramuscular 07/16/2005 Administered Status:Complet e ,Reason:Given or N/A , Solar Panel Installer: [employer] Vaccines Sequence #4 Social History Social History Additional DetailsCategorySocial InfoOptionsDetailsMigrated Social History Migrated Social History Culture/Language Barrier, AttributeTitle: No, ProblemStatus: Active, , Current tobacco use, AttributeTitle: Never smoker, ProblemStatus: Active, , Custody, AttributeTitle: Mother, ProblemStatus: Active, , DIET: The toddler is drinking whole milk, ProblemStatus: Inactive, , DIET: The toddler's regular diet is table food, ProblemStatus: Inactive, , DIET: The toddler's solid food diet consists of table food, ProblemStatus: Inactive, , Living Situation, AttributeTitle: Mom, COMMENTS: STEP DAD, ProblemStatus: Active, , Living Situation, AttributeTitle: Sibiling, COMMENTS: STEP DAD, ProblemStatus: Active, , No Caffeine Use, ProblemStatus: Active, , Non Drinker/No Alcohol Use, ProblemStatus: Active, , Normal bowel frequency, ProblemStatus: Inactive, , Normal sleeping pattern per parent/guardian, ProblemStatus: Active, , Normal sleeping pattern, ProblemStatus: Inactive, , Normal urinary and bowel frequency per parent/guardian, ProblemStatus: Active, , PARENTS WORKING: Mother works, ProblemStatus: Inactive, , Patient feels safe in relationships, ProblemStatus: Active, , PERSONS IN HOME: Includes brothers, ProblemStatus: Inactive, , PERSONS IN HOME: Includes the patient's mother, ProblemStatus: Inactive, , PERSONS IN HOME: Patient lives with siblings, ProblemStatus: Inactive, , Tobacco/Smoke Exposure, AttributeTitle: Family members smoke indoors, ProblemStatus: Active Plan Of Treatment No Information Insurance Providers Payer Name Payer Address Payer Phone Subscriber Number Group Number Insured Name Patient Relationship to Insured Coverage Start Date Coverage End Date [facility] [address] [place] [address] [id number] Kenan Cabrales - patient is the [id number] [facility] [address] [place] [phone], AubreyaunnaSelf - patient is the [id number] [facility] after [facility] [address] [place], [place] [id number], AubreyaunnaSelf - patient is the [id number] 2016 Medical (General) History Surgical History Surgery Date(Month/Year) Tubes in Ears, ProblemStatus: Active,
--- OUTSIDE RECORDS SUMMARY | 2025-03-04 22:23 | XMS_ITS | Clinical Summary ---
Author Organization [facility] Address [address], [address] [place] [address] Care Team Providers Care Chair Post Machine Operator Name Role Phone Lori Mak DO Primary Care Provider [phone] Allergies No known active allergies Medications MedicationSigDispense [...] InformationValueDate RecordedSex Assigned at BirthNot on fileLegal RhlSiupzt28/10/2013 5:04 PM ESTGender Identity Not on fileSexual OrientationNot on file Last Filed Vital Signs Vital SignReadingTime TakenCommentsBlood Zrilayni084/7810 4:21 PM EDT Pulse--Fyavarmqfrs08.1 ??C (98.7 ??F)10/22/2022 3:02 PM EDTRespiratory Rate-- Oxygen Saturation--Inhaled Oxygen Concentration--Wnqgza33.2 kg (124 lb) 10/22/2022 3:02 PM PNCMkyhpq070 cm (5' 3 )10/22/2022 3:02 PM EDTBody Mass Index 21.9708 3:02 PM EDT Plan of Treatment Health MaintenanceDue DateLast DoneCommentsDepression Ucahzt7502/29/2016Varicella vaccine (1 of 2 - 13+ 2-dose series)02/28/2017HIV whsufv8902/28/2019HPV vaccine (1 - 3-dose series)02/28/2019Chlamydia/GC zsfaxk73Meningococcal B vaccine (1 of 2 - Standard)2020Hepatitis C pupdaj052DTaP/Tdap/Td vaccine (1 - Tdap)02/28/2023Hepatitis B vaccine (1 [...] topic Procedures Procedure NamePriorityDate/TimeAssociated DiagnosisCommentsC.TRACHOMATIS N.GONORRHOEAE DNA, ASYUMMhgesoc97/14/2019 4:30 PM EDT Screen for STD (sexually transmitted disease) from Last 3 Months or Most Recently Relevant to Health Maintenance Results * C.trachomatis N.gonorrhoeae DNA, Urine (12/22/2018 4:30 PM EDT)ComponentValue Ref RangeTest MethodAnalysis TimePerformed AtPathologist SignatureSpecimen Description.URINE12/22/2018 4:30 PM EDTMERCY LABORATORIESC. trachomatis DNA ,EbmhpSNKHAFFIPNHTHLRW42/14/2019 4:30 PM EDTMERCY LABORATORIESComment: CHLAMYDIA TRACHOMATIS DNA [...] alternative nucleic acid target. N. gonorrhoeae DNA, GqgdgYFTTSRUGXSRPKCQU34/14/2019 4:30 PM EDTMERCY LABORATORIESComment: NEISSERIA GONORRHOEAE DNA [...] / LateralityCollection Method / Volume Collection TimeReceived HerlFcqkm54/14/2019 4:30 PM EDT1 6:14 PM EDT Narrative Authorizing ProviderResult TypeResult StatusKathlsonja Hearn APRN - CN MICROBIOLOGY - GENERAL ORDERABLESFinal ResultPerforming OrganizationAddress City/State/ZIP CodePhone Number [facility] [address] [place] [address], [facility] [phone] [place] [address] [place], [place] [address] [phone] from Last 3 Months or Most Recently Relevant to Health Maintenance Insurance Care Teams Team MemberRelationshipSpecialtyStart DateEnd Date Lori Mak DO PCP - GeneralPediatrics2
--- OUTSIDE RECORDS SUMMARY | 2025-03-04 22:23 | XMS_ITS | Encounter Summary ---
Author Organization [facility] Address [address] [place] [address] Care Team Providers Care Concrete Carpenter Name Role Phone Unavailable Primary Care Provider Unavailabl e Encounter Details DateTypeDepartmentCare Team (Latest Contact Info)Vigeqejayub53/25/2025Patient Self-Triage [facility] [address] [facility] [phone] Santo Deras, Physician, [address] [place] [address] Social History Tobacco UseTypesPacks/DayYears UsedDateSmoking Tobacco: Never Assessed Estimated Date of YlqvkxjxOabghxfqHkl91/19/2026Based on UltrasoundSex and Gender InformationValueDate RecordedSex Assigned at AmncpMbuauo46/05/2025 5:09 AM EDT Legal FxaMhrlsa36/15/2023 9:35 PM EDTGender XmknqsduJdosyz98/05/2025 5:09 AM EDT Sexual TyjyostntzwShvcdtvk02/05/2025 5:09 AM EDTdocumented as of this encounter Plan of Treatment DateTypeDepartmentCare Team (Latest Contact Info)Jjttjeaanyx34/29/2025 8:30 AM ESTRoutine [facility] [address] [place] [address] Rena Eaton, MIKE [address] [place] [address] documented as of this encounter Visit Diagnoses Not on filedocumented in this encounter
--- OUTSIDE RECORDS SUMMARY | 2025-03-04 22:23 | XMS_ITS | Clinical Summary ---
Author Organization [facility] tem Address [id number] [address] [place] [address] Care Team Providers Care Chemical Worker Name Role Phone Services, [facility] Primary Care Provider Allergies Active AllergyReactionsCriticalityNoted KamuSskppoyqIfklznwohk80/11/2024 Medications MedicationSigDispense QuantityRefillsLast FilledStart DateEnd DateStatus norethindrone-e.estradioL-iron (MICROGESTIN 24 FE) 1 mg-20 mcg (24)/75 mg (4) per tablet Indications:Oral contraceptive pill surveillanceTake 1 tablet by mouth in the morning. 84 tablet 4Active PNV 119-iron fum-folic acid 29 mg iron- 1 mg tablet Take 1 tablet by mouth in the morning. 30 tablet 5Active Active Problems Estimated Date of KhswljmbCbxxfukxPfz46/21/2025 No known active problems Encounters DateTypeDepartmentCare TqigKpttveoiubi80/22/2025 7:22 AM EDT - 12/30/2024 8:02 AM EDTEmer[facility] [address] [place] [address] Gacria Redding MD Right ear pain (Primary Dx); [...] drink = 0.6 oz pure alcohol)PHQ-2AnswerDate RecordedTotal Mpxqe809/27/2024ChildcareAnswerDate CryjxhaiJatgbnbcxJrogjfq28/12/2019EmploymentAnswerDate RecordedEmploymentUnknown 08/20/2018Hunger ScreeningAnswerDate RecordedWithin the past 12 months we worried whether our food would run out before we got money to buy more.Never True12/30/2024Within the past 12 months the food we bought just didn't last and we didn't have money to get more.Never True12/30/2024Purpose - LifeAnswerDate RecordedPurpose and direction in ysdhCfqkcdf38/22/2021Estimated Date of UgwvcyrwApfmcqfwBpi26/21/2025Sex and Gender InformationValueDate RecordedSex Assigned at BirthNot on fileLegal EwpExdhcb83/06/2015 12:02 PM EDTGender IdentityNot on fileSexual OrientationNot on file Last Filed Vital Signs Vital SignReadingTime TakenCommentsBlood Hocmxrgi034/7612/30/2024 7:27 AM EDT Rxljq719412/30/2024 7:27 AM MRNJrzotghffeb71.4 ??C (97.6 ??F)12/30/2024 7:27 AM EDTRespiratory Dnxy863507/07/2024 1:06 PM EDTOxygen Vvyyqgtsod72%12/30/2024 7:27 AM EDTInhaled Oxygen Concentration--Akquwu77.5 kg (173 lb)12/30/2024 7:27 AM EDT Hvnmkf871.5 cm (5' 2 )12/30/2024 7:27 AM EDTBody Mass Index31.6412/30/2024 7:27 AM EDT Plan of Treatment Health MaintenanceDue DateLast DoneCommentsAdult BMI Follow Up Plan02/28/2022 Chlamydia Cmtdeiigl35/30/95954510/08/2023, 05/21/2023, 08/10/2022, Additional history existsInfluenza Gfdmadf2511/09/2024Depression Onpzalfzu69/27/2025 02/05/2024dult BMI Pnkzmorna74Tobacco Twywcvsam10/22/2026 12/30/2024DTaP,Tdap and Td Vaccines (6 - Td or Tdap), 07/16/2005, 2004, Additional history existsRSV ( or age 60+ yrs) (No Doses Required)Completed Medical Devices Not on file Procedures Procedure NamePriorityDate/TimeAssociated DiagnosisCommentsCHLAMYDIA/GC BY PCR DAVIDA ERBTQzrufmo73/30/2024 9:16 AM EDT Screening for STD (sexually transmitted disease) from Last 3 Months or Most Recently Relevant to Health Maintenance Results * Chlamydia/GC by PCR Davida Swab (10/08/2023 9:16 AM EDT)ComponentValueRef Range Test MethodAnalysis TimePerformed AtPathologist SignatureSpecimen sourceCERVIX 10/08/2023 9:16 PM EDTSUNQUESTChlamydia DNA PCRNegativeNegative^Negative 10/09/2023 11:35 AM [facility] LABComment: ? Chlamydia trachomatis not detected by nucleic acid amplification. This does not exclude the possibility of infection because results are dependent on adequate specimen collection. ? Gonorrhea DNA PCRNegativeNegative^Ptqhgtvg23/31/2024 11:35 AM [facility] LABComment: ? Neisseria gonorrhoeae not detected by nucleic acid amplification. This does not exclude the possibility of infection because results are dependent on adequate specimen collection. ? Specimen (Source)Anatomical Location / LateralityCollection Method / Volume Collection TimeReceived XroxHPJX74/30/2024 9:16 AM EDT10/08/2023 9:16 PM EDT Narrative Authorizing ProviderResult TypeResult StatusCorie Jessica Villagomez MDMICROBIOLOGY - GENERAL ORDERABLESFinal ResultPerforming OrganizationAddressCity/State/ZIP Code Phone Number [facility] [address] [place] [address] from Last 3 Months or Most Recently Relevant to Health Maintenance Care Teams Team MemberRelationshipSpecialtyStart DateEnd Date Services, [facility] [address] [place] [place] PCP - GeneralFamily Medicine07/07/24
--- OUTSIDE RECORDS SUMMARY | 2025-03-04 22:23 | XMS_ITS | Clinical Summary ---
Author Organization [facility] Address [address] [place] [address] Care Team Providers Care Locomotive Operator Name Role Phone Unavailable Primary Care Provider Unavailabl e Allergies Active AllergyReactionsCriticalityNoted DateCommentsPrednisoneAnxietyLow 08/20/2023 Increased HR Medications MedicationSigDispense QuantityRefillsLast FilledStart DateEnd DateStatus MV-Min-Fe Fum-FA-DHA ( 1 PO) Take by mouthActive omeprazole (PriLOSEC) [address] capsule Indications:Gastroesophageal Reflux Disease,HeartburnTake 1 capsule (20 mg) by mouth in the morning. Take before meals. Do not crush or chew. 30 capsule ctive nystatin (Mycostatin) 348927 UNIT/GM powder Indications:Yeast infectionApply topically in the morning and in the evening and before bedtime. 15 g ctive fluconazole (Diflucan) 150 MG tablet Indications:Yeast infectionTake 1 tablet (150 mg) by mouth 1 (one) time for 1 dose Repeat in 7 days if symptoms persist. 1 tablet Expired metroNIDAZOLE (Flagyl) 500 MG tablet Indications:BV (bacterial vaginosis)Take 1 tablet (500 mg) by mouth in the morning and 1 tablet (500 mg) before bedtime. Do all this for 7 days. Do not drink alcohol while taking this medication. 14 tablet Expired Encounters DateTypeDepartmentCare KmikNhcgurzmpri19/25/9728Lpljug00/25/2025Patient Self-Triage [facility] [address] [place] [address] Santo Deras, Physician, 5Clinisync Result Encounter [facility] External Department Unsolicited Durga Gibson, 02/10/2025Telephone [facility] [address] [place] [address] Marilu Pearce MA 02/09/2025 9:50 AM ESTRoutine [facility] [address] [place] [address] Durga Gibson DO 24 weeks gestation of ([facility]); Second trimester ([facility]); Diabetes mellitus screening; Vaginal discharge; Heartburn during in second trimester ([facility]); Yeast hlslmilrc34/02/2025Bamboo flowsheet [facility] [address] [place] [address] Durga Gibson, 02/03/2025 8:00 AM ESTAncillary Procedure [facility] [address] [place] [address] Encounter for follow-up ultrasound of anatomy ([facility])01/21/2025Telephone [facility] [address] [place] [address] Marilu Pearce MA 01/20/2025Telephone [facility] [address] [place] [address] Marilu Pearce MA 01/07/2025 10:30 AM EDTRoutine [facility] [address] [facility] [place] [address] Meredith Castro PA Second trimester ([facility]); 20 weeks gestation of ([facility])01/07/2025 9:30 AM EDTAncillary Procedure [facility] [address] [place] [address] Screening, , for anatomic survey ([facility])01/04/2025linisync Result Encounter [facility] External Department Unsolicited Rena Eaton NP 12/23/2024bstract [facility] [address] [place] [address] Durga Gibson DO 12/04/2024Telephone [facility] [address] [place] [address] Rena Eaton NP 12/03/2024 10:30 AM EDTRoutine [facility] [address] [place] [address] Rena Eaton NP Second trimester ([facility]); 15 weeks gestation of ([facility]); Exposure to STD; Screening, , for anatomic survey ([facility]); Need for maternal serum alpha-protein (MSAFP) screening ([facility])12/03/2024 External Result Encounter [facility] External Department Unsolicited Rena Eaton NP 12/03/2024amboo flowsheet [facility] [address] [place] [address] Rena Eaton NP from Last 3 Months Social History Tobacco UseTypesPacks/DayYears UsedDateSmoking Tobacco: Never Assessed Estimated Date of XvmtdxjlRuvsugoiPut28/19/2026Based on UltrasoundSex and Gender InformationValueDate RecordedSex Assigned at KshgiNgxyqp97/05/2025 5:09 AM EDT Legal QbjDpgvhj79/15/2023 9:35 PM EDTGender IgkfvqyrTelpwd00/05/2025 5:09 AM EDT Sexual OvewkkkcldvRjeracrx04/05/2025 5:09 AM EDT Last Filed Vital Signs Vital SignReadingTime TakenCommentsBlood Qedwlojk362/6012/04/2024 9:55 AM EST Pulse--Temperature--Respiratory Rate--Oxygen Saturation--Inhaled Oxygen Concentration--Ternch86 kg (191 lb 12.8 oz)02/09/2025 9:55 AM BMEItyzfe518.5 cm (5' 2 )10/09/2024 9:24 AM EDTBody Mass Index35.0810/09/2024 9:24 AM EDT Plan of Treatment DateTypeDepartmentCare Team (Latest Contact Info)Gugkjyugmfp89/29/2025 8:30 AM ESTRoutine [facility] [address] [place] [address] Rena Eaton, RECEIVABLE CLERK [address] [place] [address] Procedures Procedure NamePriorityDate/TimeAssociated DiagnosisCommentsGLUCOSE 1 HOURRoutine 02/13/2025 10:05 AM EST ALL CBC WITH AUTO ZXRPZvsqkgq75/06/2025 10:05 AM EST RECURRENT VAGINITIS (HTRX)Padouoe3602/09/2025 12:41 PM EST POCT URINALYSIS BMLVPNTELjzlhea44/02/2025 10:03 AM EST 24 weeks gestation of ([facility]) Second trimester ([facility]) US OB LIMITED 1+ JSLHVQSCttszvc89/26/2025 8:08 AM EST Encounter for follow-up ultrasound of anatomy ([facility]) POCT URINALYSIS NOGSIRMEQiigrwz41/30/2025 11:08 AM EDT Second trimester ([facility]) US OB 14+ WEEKS ANATOMY KWMEPoyuhzd88/30/2025 10:58 AM EDT Screening, , for anatomic survey ([facility]) AFP, SERUM, OPEN SPINA BZZWFUHksopfg96/27/2025 9:15 AM EDT RECURRENT VAGINITIS (HTRX)Qubjnte2312/03/2024 12:03 PM EDT POCT URINALYSIS EJCZHOOFKebhfsd84/25/2025 10:55 AM EDT Second trimester ([facility]) from Last 3 Months Results * GLUCOSE 1 HOUR (02/13/2025 10:05 AM EST)ComponentValueRef RangeTest Method Analysis TimePerformed AtPathologist SignatureGLUCOSE 1 VSTK379<130 mg/dLTBH Specimen (Source)Anatomical Location / LateralityCollection Method / Volume Collection TimeReceived Time02/13/2025 10:05 AM EST02/13/2025 10:08 AM EST Narrative [facility] - 02/13/2025 10:47 AM EST Authorizing ProviderResult TypeResult StatusCorey Paige DOLAB BLOOD ORDERABLES Final ResultPerforming OrganizationAddressCity/State/ZIP CodePhone Number [facility] * (ABNORMAL) ALL CBC WITH AUTO DIFF (02/13/2025 10:05 AM EST)ComponentValueRef RangeTest MethodAnalysis TimePerformed AtPathologist SignatureTBH WBC14.7(H) 4.0 - 11.0 10 3/uLTBHTBH RBC4.08(L)4.20 - 5.40 10 6/uLTBHTBH HGB12.312.0 - 16.0 g/dLTBHTBH HCT36.836.0 - 48.0 %TBHTBH MCV90.281.0 - 99.0 fLTBHTBH MCH30.1 26.7 - 34.0 pgTBHTBH MCHC33.429.9 - 35.2 g/dLTBHTBH RDW12.011.0 - 15.0 %TBHTBH YCT148986 - 450 10 3/uLTBHTBH MPV11.09.5 - 13.5 fLTBHNEUTROPHILS PERCENT AUTO 77.0(H)43.0 - 75.0 %TBHLYMPHOCYTES PERCENT AUTO13.1(L)20.5 - 60.0 %TBH MONOCYTES PERCENT AUTO6.41.7 - 12.0 %TBHTBH EO %2.20.9 - 7.0 %TBHBASOPHILS PERCENT AUTO0.40.2 - 2.0 %TBHIMMATURE GRANULOCYTES PCT AUTO0.9(H)0.0 - 0.5 % TBHNEUTROPHILS ABSOLUTE AUTO11.3(H)1.4 - 6.5 10 3/uLTBHLYMPHOCYTES ABSOLUTE AUTO1.91.2 - 3.8 10 3/uLTBHMONOCYTES ABSOLUTE AUTO0.9(H)0.3 - 0.8 10 3/uLTBH TBH EO #0.30.0 - 0.7 10 3/uLTBHBASOPHILS ABSOLUTE AUTO0.10.0 - 0.1 10 3/uLTBH IMMATURE GRANULOCYTES ABS AUTO0.13(H)0.00 - 0.03 10 3/uLTBHSpecimen (Source) Anatomical Location / LateralityCollection Method / VolumeCollection Time Received Time02/13/2025 10:05 AM EST02/13/2025 10:08 AM EST Narrative [facility]IN[facility]YNC - 02/13/2025 10:25 AM EST Authorizing ProviderResult TypeResult StatusCorey Paige DOCLINISYNCFinal Result Performing OrganizationAddressCity/State/ZIP CodePhone Number [facility] * (ABNORMAL) RECURRENT VAGINITIS (HTRX) (02/09/2025 12:41 PM EST) Only the most recent of2 resultswithin the time period is included. ComponentValueRef RangeTest MethodAnalysis TimePerformed AtPathologist Signature ATOPOBIUM IIAMCFS45.131(A)19.961 - 24.689 ppm02/10/2025 7:52 AM ESTHealthTrackRx at [facility] CenterATOPOBIUM VAGINAEDetected(A)19.961 - 24.689 ppm02/10/2025 7:52 AM EST [facility] CenterBVAB 2,3 (BACTERIAL VAGINOSIS ASSOCIATED BACTERIA 2, 3); MOBILUNCUS MIJ331.961 - 24.689 ppm02/10/2025 7:52 AM ESTHealthTrackRx at [facility]St[facility] BVAB 2,3 (BACTERIAL VAGINOSIS ASSOCIATED BACTERIA 2, 3); MOBILUNCUS SPPNot Bzuotnqj03.961 - 24.689 ppm02/10/2025 7:52 AM ESTHealthTrackRx at LabPortCANDIDA ALBICANS, PARAPSILOSIS, XQCHQBQMHD138.000 - 30.347 ppm02/10/2025 7:52 AM EST [facility] LabPortCANDIDA ALBICANS, PARAPSILOSIS, TROPICALISNot Detected 23.000 - 30.347 ppm02/10/2025 7:52 AM ESTHealthTrackRx at LabPortCANDIDA XMPNWDFZ365.000 - 31.618 ppm12 7:52 AM ESTHealthTrackRx at LabPort LEVON GLABRATANot Caanyrxx51.000 - 31.618 ppm02/10/2025 7:52 AM EST [facility] LabPortCANDIDA BSDXMU168.000 - 30.873 ppm02/10/2025 7:52 AM EST [facility] LabPortCANDIDA KRUSEINot Qhyqnhpp98.000 - 30.873 ppm02/10/2025 7:52 AM ESTHealthTrackRx at LabPortCHLAMYDIA GLREUZUBYBS902.000 - 31.586 ppm 02/10/2025 7:52 AM ESTHealthTrackRx at LabPortCHLAMYDIA TRACHOMATISNot Detected 23.000 - 31.586 ppm02/10/2025 7:52 AM ESTHealthTrackRx at LabPortGARDNERELLA YOYKEFTIL00.508(A)19.961 - 24.689 ppm02/10/2025 7:52 AM ESTHealthTrackRx at LabPortGARDNERELLA VAGINALISDetected(A)19.961 - 24.689 ppm02/10/2025 7:52 AM EST [facility] at LabPortMEGASPHAERA (TYPES 1, 2)019.961 - 24.689 ppm12/05/2024 7:52 AM ESTHealthTrackRx at LabPortMEGASPHAERA (TYPES 1, 2)Not Jmvoqvpx71.961 - 24.689 ppm12 7:52 AM ESTHealthTrackRx at LabPortNEISSERIA GONORRHOEAE0 23.000 - 32.587 ppm02/10/2025 7:52 AM ESTHealthTrackRx at LabSt[facility] HospitalNEISSERIA GONORRHOEAENot Flftfvzl58.000 - 32.587 ppm02/10/2025 7:52 AM ESTHealthTrackRx at LabPortTRICHOMONAS PYSNKLNFY409.000 - 31.995 ppm02/10/2025 7:52 AM EST [facility] at LabPortTRICHOMONAS VAGINALISNot Pzjkmriv62.000 - 31.995 ppm 02/10/2025 7:52 AM ESTHealthTrackRx at LabPortMYCOPLASMA QQQOOYYERY471.961 - 24.689 ppm02/10/2025 7:52 AM ESTHealthTrackRx at [facility] CenterMYCOPLASMA GENITALIUMNot Diytwscx34.961 - 24.689 ppm02/10/2025 7:52 AM ESTHealthTrackRx at LabPortERMB, C; MEFA24.33(A)23.000 - 27.500 ppm02/10/2025 7:52 AM ESTHealthTrackRx at LabPort ERMB, C; MEFADetected(A)23.000 - 27.500 ppm02/10/2025 7:52 AM ESTHealthTrackRx at LabPortTET B, TET M23.385(A)23.000 - 27.500 ppm02/10/2025 7:52 AM EST [facility]St[facility] HospitalTET B, TET MDetected(A)23.000 - 27.500 ppm02/10/2025 7:52 AM ESTHealthTrackRx at [facility] CenterSpecimen (Source)Anatomical Location / LateralityCollection Method / VolumeCollection TimeReceived XfdoCbkble36/02/2025 12:41 PM EST02/10/2025 2:30 AM EST Narrative Authorizing ProviderResult TypeResult StatusCorey Paige DOLAB BLOOD ORDERABLES Final ResultPerforming OrganizationAddressCity/State/ZIP CodePhone Number [facility] [address] [address] * POCT urinalysis dipstick manually resulted (02/09/2025 [...] Location / LateralityCollection Method / VolumeCollection TimeReceived CyrzYxmkk07/02/2025 10:03 AM EST Narrative Authorizing ProviderResult TypeResult StatusCorey [facility] DOPOINT OF CARE TEST ENTER/EDIT ORDERABLESFinal Result * US OB limited 1+ fetuses (02/03/2025 8:08 AM EST)Anatomical RegionLaterality ModalityBodyUltrasoundSpecimen (Source)Anatomical Location / Laterality Collection Method / VolumeCollection TimeReceived Time02/03/2025 11:41 AM EST Impressions 02/08/2025 7:28 AM EST Single viable intrauterine with adequate visualization of the cardiac and out flow tracts. TRANSCRIBED BY: ? ELECTRONICALLY SIGNED BY: Joseph Graica MD Narrative 02/08/2025 7:28 AM EST FINDINGS: [...] Paige DOIMG OB US PROCEDURES Final Result * US [...] BY: Joseph Gracia MD Authorizing ProviderResult TypeResult StatusKrVirtua [facility] NPIMG OB US PROCEDURESFinal Result * AFP, SERUM, OPEN SPINA BIFIDA (01/04/2025 9:15 AM EDT)ComponentValueRef Range Test MethodAnalysis TimePerformed AtPathologist SignatureRESULTSReport.TBHTEST RESULTS:*Screen Negative*.TBHGEST. AGE ON COLLECTION DATE19.6. weeksTBHGESTAT. AGE BASED ONUltrasound.TBHComment: ?15.0 on 12/03/2024 Recalculations are not recommended when gestational dating by LMP and ultrasound are within 10 days. MATERNAL AGE AT EDD21.2. yrTBHRACECaucasian.NNPZZFQKQ357. lbsTBHINSULIN DEP DIABETESNo.TBHMULTIPLE GESTATIONNo.TBHAFP VALUE47.1. ng/mLTBHAFP MOM0.96.TBHOSBR RISK 1 [id number].TBHINTERPRETATIONComment.TBHComment: Interpretation: Screen Negative This result is screen [...] Customer Services to discuss available options. ??The [place] [employer] recommends amniocentesis be offered to women age 35 and older. COMMENT:Comment.TBHComment: Shamika Swenson, Ph.D., [facility] Director References: Available Upon Request. Multiples Of Median Cutoffs ?For AFP Elevations Tyson ?? 2.5 ? Black ?2.8 IDD ? 2.0 ? Twins ?4.5 ?Abbreviation Definitions IDD - Insulin Dep Diabetes OSBR - Open Spina Bifida Risk For further inquiries contact [facility] at [phone]. This test was developed and its performance characteristics determined by [employer]. It has not been cleared or approved by the Food and Drug Administration. Performed at: ??[facility] - [facility] [place], [place] ??[id number] Radio Frequency Engineer: [facility], Phone: ??[phone] Specimen (Source)Anatomical Location / LateralityCollection Method / Volume Collection TimeReceived Time01/04/2025 9:15 AM EDT1 9:16 AM EDT Narrative [facility] - 01/06/2025 12:07 AM EDT N N ULTRASOUND [id number] 0 15 N 1 Y 167 N N N N N White/ Authorizing ProviderResult TypeResult StatusRena Eaton NPLAB BLOOD ORDERABLESFinal ResultPerforming OrganizationAddressCity/State/ZIP CodePhone Number [facility] from Last 3 Months Insurance
[2025-03-04 22:24] VITALS: BP 130/66; PULSE 82; TEMP 36.7; O2SAT 99; BMI 35.1
[2025-03-04 22:30] VITALS: O2SAT 98
--- NOTE | 2025-03-04 22:30 | ECG_ITS ---
[facility] Test Date: 2025-03-04 Pat Name: ANGELIA GERBER Department: Room: - Gender: Female Mixer Attendant: : 2005 Requested By: [id number] Order Number: [id number] Reading MD: HAL SCALES M.D. Measurements Intervals [place] Rate: 77 P: 60 ME: 130 QRS: 79 QRSD: 78 T: 63 QT: 394 QTc: 426 Interpretive Statements 1100 Sinus rhythm 1102 Sinus arrhythmia 9110 normal ECG No previous ECG available for comparison Electronically Signed On 03-05-2025 7:17:28 EST by HAL SCALES M.D.
[2025-03-04 23:09] VITALS: PULSE 79
[2025-03-04 23:10] VITALS: BP 121/75; PULSE 76
[2025-03-04 23:11] VITALS: PULSE 77
[2025-03-04 23:13] LABS: Glucose Urine UA NEGATIVE (NEGATIVE)
[2025-03-04 23:17] LABS: Cast Seen? NONE SEEN #/LPF (NONE SEEN); Crystals Seen? None Seen #/HPF (None Seen); Urine Culture Indicated NO
--- NOTE | 2025-03-04 23:52 | XR_ITS ---
[address] [address] Patient Name: ANGELIA GERBER MRN: [id number] date: 2005 Sex: F Assigned Patient Location: ER Current Patient Location: Accession/Order Number: [id number] Exam Date: 03/04/2025 23:55 Report Date: 03/05/2025 08:20 At the request of: SUNI MENDEZ MD Procedure: XR chest 1V XR chest 1V 03/05/2025 12:00 AM SIGNS AND SYMPTOMS: ^chest pain PROTOCOL: Frontal radiograph of the chest COMPARISON: None FINDINGS: The trachea is midline. The heart and mediastinal structures are within normal limits. The lung parenchyma is clear. The bony thorax is intact. XR/XR chest 1V IMPRESSION: No acute cardiopulmonary pathology. Impression dictated by: Cuco Casper M.D. 03/05/2025 8:20 AM Dictation Location: [place] [address] Electronically authenticated by: [id number] Y Date: 03/05/2025 08:20
--- NOTE | 2025-03-04 23:55 | ED.CHESTPAI1 ---
HPI - Chest Pain General Chief Complaint: Chest Pain Stated Complaint: 28 weeks . shortness of breath right side Time Seen by Provider: 03/04/25 23:37 Source: patient Mode of arrival: walk-in Limitations: no limitations History of Present Illness HPI narrative: presents complaining of right sided chest pain that started today and continues. Denies any injury. no fever or chills. Pain increases with deep breath. No associated nausea or vomiting patient is 28 weeks . M9V2Rt3 Related Data Home Medications ?Medication ?Instructions ?Recorded ?Confirmed No Known Home Medications 08/31/24 08/31/24 Allergies Allergy/AdvReac Type Severity Reaction Status Date / Time prednisone AdvReac Intermediate Anxiety Verified 08/31/24 21:53 Review of Systems ROS Status of ROS 10 or more systems reviewed and unremarkable except as noted in history and below PFSH PFSH Social History Little interest or pleasure in doing things: not at all Feeling down, depressed, or hopeless: not at all Exam Constitutional Vital Signs, click to edit/add: Last Vital Signs Temp 98.0 F 03/04/25 22:24 Pulse 76 03/04/25 23:10 Resp 19 03/04/25 23:10 BP 121/75 03/04/25 23:10 Pulse Ox 98 03/04/25 22:30 O2 Del Method Room Air 03/04/25 22:24 Common normals: no apparent distress, average body habitus, oriented x3, no limitations, healthy appearing, alert and well nourished [facility] Common normals: normocephalic and head/scalp atraumatic Eye Common normals: EOMs intact bilaterally and conjunctivae normal Chest Other: right anterior and mid axillary chest wall tender and reproduces symptoms Cardio Common normals: regular rate, regular rhythm, S1 normal heart sound and S2 normal heart sound GI Common normals: Normal to inspection, nondistended, normoactive bowel sounds present, soft to palpation and non-tender Extremity Common normals: normal to inspection and full ROM Neuro Common normals: oriented x3, CN's II-XII intact bilaterally, moves all extremities and no focal motor deficits Psych Appearance: grossly normal Course Vital Signs Vital signs: Vital Signs Temperature 98.0 F 03/04/25 22:24 Pulse Rate 82 03/04/25 22:24 Respiratory Rate 18 03/04/25 22:24 Blood Pressure 130/66 12/25/25 22:24 Pulse Oximetry 99 03/04/25 22:24 Oxygen Delivery Method Room Air 03/04/25 22:24 Temperature 98.0 F 03/04/25 22:24 Pulse Rate 76 03/04/25 23:10 Respiratory Rate 19 03/04/25 23:10 Blood Pressure 121/75 03/04/25 23:10 Pulse Oximetry 98 03/04/25 22:30 Oxygen Delivery Method Room Air 03/04/25 22:24 MDM - Chest Pain MDM Narrative Medical decision making narrative: presents with right sided chest pain . present all day. Increases with deep breath. Increases when she rises from supine to sitting position. RA pulse ox 100% RA. No fever. chest wall tender and reproduces the pain. cxray ordered . chest xray per my review is neg for any acute findings. CBC with elevated WBC. she is afebrile. Urine also not infected. WBC elevated past visits also. likely demargination. Discharged home in good condition. Advised to use tylenol prn for pain Lab Data Labs: Lab Results 03/04/25 03/04/25 03/05/25 Range/Units 22:35 23:05 00:15 WBC 14.3 H (4.0-11.0) 10^3/uL RBC 4.21 (4.20-5.40) 10^6/uL Hgb 12.6 (12.0-16.0) g/dL Hct 36.8 (36.0-48.0) % MCV 87.4 (81.0-99.0) fL MCH 29.9 (26.7-34.0) pg MCHC 34.2 (29.9-35.2) g/dL RDW 11.9 (11.0-15.0) % Plt Count 221 (150-450) 10^3/uL MPV 12.8 (9.5-13.5) fL Neut % (Auto) 65.0 (43.0-75.0) % Lymph % (Auto) 22.7 (20.5-60.0) % [place] % (Auto) 7.3 (1.7-12.0) % Eos % (Auto) 3.4 (0.9-7.0) % Baso % (Auto) 0.6 (0.2-2.0) % Neut # (Auto) 9.3 H (1.4-6.5) 10^3/uL Lymph # (Auto) 3.3 (1.2-3.8) 10^3/uL [place] # (Auto) 1.0 H (0.3-0.8) 10^3/uL Eos # (Auto) 0.5 (0.0-0.7) 10^3/uL Baso # (Auto) 0.1 (0.0-0.1) 10^3/uL Abs Immat Gran (auto) 0.15 H (0.00-0.03) 10^3/uL Imm/Tot Granulo (auto) 1.0 H (0.0-0.5) % Sodium 136 (136-145) mmol/L Potassium 3.5 (3.5-5.1) mmol/L Chloride 103 (98-107) mmol/L Carbon Dioxide 25.3 (21.0-32.0) mmol/L Anion Gap 11.2 BUN 4.0 L (7.0-18.0) mg/dL Creatinine 0.39 L (0.55-1.02) mg/dL Est GFR ( Amer) >60 (>=60 mL/min/1.73m^2) Est GFR (Non-Af Amer) >60 (>=60 mL/min/1.73m^2) BUN/Creatinine Ratio 10.3 Glucose 96 (74-106) mg/dL Calcium 8.6 (8.5-10.1) mg/dL Urine Color Lt. yellow (YELLOW) Urine Clarity Clear (CLEAR) Urine pH 6.5 (5.0-9.0) Ur Specific [place] <=1.005 A (1.005-1.025) Urine Protein Negative (NEG/TRACE) mg/dL Urine Glucose (UA) Negative (NEGATIVE) mg/dL Urine Ketones Negative (NEGATIVE) mg/dL Urine Occult Blood Negative (NEGATIVE) Urine Nitrite Negative (NEGATIVE) Urine Bilirubin Negative (NEGATIVE) Urine Urobilinogen 0.2 (0.2-1.0) EU/dL Ur Leukocyte Esterase Trace A (NEGATIVE) Urine RBC None seen (0-2) #/HPF Urine WBC 0-2 A (NONE SEEN) #/HPF Ur Squamous Epith Cells Moderate A (NONE/RARE) #/LPF Urine Crystals None seen (None Seen) #/HPF Urine Bacteria Trace A (NONE SEEN) #/HPF Urine Casts None seen (NONE SEEN) #/LPF Urine Mucus None seen (NONE SEEN) Ur Culture Indicated? No Discharge Plan Discharge Chief Complaint: Chest Pain Clinical Impression: Chest wall pain Patient Disposition: Home, Self-Care Prescriptions / Home Meds: No Action No Known Home Medications Print Language: Lithuanian Instructions: Noncardiac Chest Pain (ED) Additional Instructions: use tylenol for pain and follow up with your doctor next week Referrals: [facility] [Primary Care Provider, Unknown] - 1 week
[2025-03-05 00:07] LABS: Hematocrit 36.8 % (36.0-48.0); Hemoglobin 12.6 g/dL (12.0-16.0); Immature Granulocytes Abs Auto 0.15 10^3/uL (0.00-0.03); Immature Granulocytes Pct Auto 1.0 % (0.0-0.5); Lymphocytes Absolute Auto 3.3 10^3/uL (1.2-3.8); Mean Corpuscular HGB Conc 34.2 g/dL (29.9-35.2); Mean Corpuscular Hemoglobin 29.9 pg (26.7-34.0); Mean Corpuscular Volume 87.4 fL (81.0-99.0); Platelet Count 221 10^3/uL (150-450); Red Blood Count 4.21 10^6/uL (4.20-5.40); White Blood Count 14.3 10^3/uL (4.0-11.0)
[2025-03-05 00:31] LABS: Anion Gap 11.2; Blood Urea Nitrogen 4.0 mg/dL (7.0-18.0); Calcium 8.6 mg/dL (8.5-10.1); Carbon Dioxide 25.3 mmol/L (21.0-32.0); Chloride 103 mmol/L (98-107); Estimated GFR (African America >60 (>=60 mL/min/1.73m^2); Estimated GFR (Non-African Ame >60 (>=60 mL/min/1.73m^2); Glucose 96 mg/dL (74-106); Potassium 3.5 mmol/L (3.5-5.1); Sodium 136 mmol/L (136-145)
[2025-03-05 01:02] VITALS: BP 115/75; PULSE 81; O2SAT 20
== END 2025-03-05 01:05 | disposition home or self-care (01) ==
PROVIDERS: Emergency Provider Internal Medicine
DX: R07.89 Other chest pain (principal); O26.893 Other specified pregnancy related conditions, third trimester; Z3A.28 28 weeks gestation of pregnancy
CPT/HCPCS: 36415; 71045; 80048; 81001; 85025; 93005; 99283

== ENCOUNTER 2025-03-05 01:09 | Outpatient (OUT) | payer OTHER, SELFPAY ==
--- OUTSIDE RECORDS SUMMARY | 2025-03-05 01:12 | XMS_ITS | Clinical Summary ---
Author Organization [facility] tem Address [id number] [address] [place] [address] Care Team Providers Care Balance And Hairspring Assembler Name Role Phone Services, [facility] Primary Care Provider Allergies Active AllergyReactionsCriticalityNoted LmhpAplspptbTbsksmzaju28/11/2024 Medications MedicationSigDispense QuantityRefillsLast FilledStart DateEnd DateStatus norethindrone-e.estradioL-iron (MICROGESTIN 24 FE) 1 mg-20 mcg (24)/75 mg (4) per tablet Indications:Oral contraceptive pill surveillanceTake 1 tablet by mouth in the morning. 84 tablet 4Active PNV 119-iron fum-folic acid 29 mg iron- 1 mg tablet Take 1 tablet by mouth in the morning. 30 tablet 5Active Active Problems Estimated Date of SuqqeknsRmpmruhdAdr32/21/2025 No known active problems Encounters DateTypeDepartmentCare HzqmHilwzjgmpnd06/22/2025 7:22 AM EDT - 12/30/2024 8:02 AM EDTEmergency [facility] [address] [place] [address] Garcia Redding MD Right ear pain (Primary [...] drink = 0.6 oz pure alcohol)PHQ-2AnswerDate RecordedTotal Uvian743/27/2024ChildcareAnswerDate WvjviediRwdmqrjqbEymdxeb01/12/2019EmploymentAnswerDate RecordedEmploymentUnknown 08/20/2018Hunger ScreeningAnswerDate RecordedWithin the past 12 months we worried whether our food would run out before we got money to buy more.Never True12/30/2024Within the past 12 months the food we bought just didn't last and we didn't have money to get more.Never True12/30/2024Purpose - LifeAnswerDate RecordedPurpose and direction in urztPzlozzt47/22/2021Estimated Date of DjrepjljIxzmitiqIhd57/21/2025Sex and Gender InformationValueDate RecordedSex Assigned at BirthNot on fileLegal FrsDjmqwu76/06/2015 12:02 PM EDTGender IdentityNot on fileSexual OrientationNot on file Last Filed Vital Signs Vital SignReadingTime TakenCommentsBlood Kdoremid021/7612/30/2024 7:27 AM EDT Rbtpp380612/30/2024 7:27 AM RKJKkdslnvzlaj03.4 ??C (97.6 ??F)12/30/2024 7:27 AM EDTRespiratory Oktl125507/07/2024 1:06 PM EDTOxygen Dlmvoitsvi71%12/30/2024 7:27 AM EDTInhaled Oxygen Concentration--Cuwkkm92.5 kg (173 lb)12/30/2024 7:27 AM EDT Jgscvd808.5 cm (5' 2 )12/30/2024 7:27 AM EDTBody Mass Index31.6412/30/2024 7:27 AM EDT Plan of Treatment Health MaintenanceDue DateLast DoneCommentsAdult BMI Follow Up Plan02/28/2022 Chlamydia Skrsmwovw75/30/33165310/08/2023, 05/21/2023, 08/10/2022, Additional history existsInfluenza Fiykyxz9711/09/2024Depression Glbzmdvva82/27/2025 02/05/2024dult BMI Zcosxboif55Tobacco Ycfqztsic02/22/2026 12/30/2024DTaP,Tdap and Td Vaccines (6 - Td or Tdap), 07/16/2005, 2004, Additional history existsRSV ( or age 60+ yrs) (No Doses Required)Completed Medical Devices Not on file Procedures Procedure NamePriorityDate/TimeAssociated DiagnosisCommentsCHLAMYDIA/GC BY PCR DAVIDA LVZKYwzyeqz97/30/2024 9:16 AM EDT Screening for STD (sexually transmitted disease) from Last 3 Months or Most Recently Relevant to Health Maintenance Results * Chlamydia/GC by PCR Davida Swab (10/08/2023 9:16 AM EDT)ComponentValueRef Range Test MethodAnalysis TimePerformed AtPathologist SignatureSpecimen sourceCERVIX 10/08/2023 9:16 PM EDTSUNQUESTChlamydia DNA PCRNegativeNegative^Negative 10/09/2023 11:35 AM [facility]: ? Chlamydia trachomatis not detected by nucleic acid amplification. This does not exclude the possibility of infection because results are dependent on adequate specimen collection. ? Gonorrhea DNA PCRNegativeNegative^Jkidppga48/31/2024 11:35 AM [facility]Comment: ? Neisseria gonorrhoeae not detected by nucleic acid amplification. This does not exclude the possibility of infection because results are dependent on adequate specimen collection. ? Specimen (Source)Anatomical Location / LateralityCollection Method / Volume Collection TimeReceived AoleHFRN16/30/2024 9:16 AM EDT10/08/2023 9:16 PM EDT Narrative Authorizing ProviderResult TypeResult StatusCorie Jessica Villagomez MDMICROBIOLOGY - GENERAL ORDERABLESFinal ResultPerforming OrganizationAddressCity/State/ZIP Code Phone Number [facility] [address] [place] [address] from Last 3 Months or Most Recently Relevant to Health Maintenance Care Teams Team MemberRelationshipSpecialtyStart DateEnd Date Services, [facility] [address] [place] [place] PCP - GeneralFamily Medicine07/07/24
--- OUTSIDE RECORDS SUMMARY | 2025-03-05 01:12 | XMS_ITS | Encounter Summary ---
Author Organization [facility] Address [address] [place] [address] Care Team Providers Care Rn Patient Services Name Role Phone Unavailable Primary Care Provider Unavailabl e Encounter Details DateTypeDepartmentCare Team (Latest Contact Info)Rbrlllpieij01/25/2025Patient Self-Triage [facility] [address] [facility] [place] [phone] Santo Deras, Physician, [address] [place] [address] Social History Tobacco UseTypesPacks/DayYears UsedDateSmoking Tobacco: Never Assessed Estimated Date of GivbfrzvOeaicbfzKyj23/19/2026Based on UltrasoundSex and Gender InformationValueDate RecordedSex Assigned at NqdeqMuogdd92/05/2025 5:09 AM EDT Legal WahHucgyu71/15/2023 9:35 PM EDTGender WkkbqoumZcmfmy41/05/2025 5:09 AM EDT Sexual CwkgacpbxhwOyhroyok28/05/2025 5:09 AM EDTdocumented as of this encounter Plan of Treatment DateTypeDepartmentCare Team (Latest Contact Info)Agefxazlbyn67/29/2025 8:30 AM ESTRoutine [facility] [address] [address] Rena Eaton, MIKE [address] [place] [address] documented as of this encounter Visit Diagnoses Not on filedocumented in this encounter
--- OUTSIDE RECORDS SUMMARY | 2025-03-05 01:12 | XMS_ITS | Patient Health Record ---
Author Organization [facility] vices Address [address] [place], [place] [address] Support Name Relationship Address Phone Brett Marroquin Guarantor Unknown [phone] Allergies No Known Allergies Reason For Referral [...] given/20 min wait c no reactions observed Bridge Saw Operator: Denzel-Iker r Parent/Carolina n: mom Sequence #4 [...] Administered Status:Complet e ,Reason:Given or N/A , Bridge Saw Operator: [employer] r Sequence #4 Meningococcal [id number] IM Intramuscular 11/14/2016 Administered Status:Complet e ,Reason:Given [...] Administered Status:Complet e ,Reason:Given or N/A , Bridge Saw Operator: Wyeth-Lederle Vaccines Sequence #4 Social History Social [...] Insured Coverage Start Date Coverage End Date [facility] [address] [place] [address] [id number] Kenan Cabrales - patient is the [id number] 2016[facility] [address] [place] [phone], AubreyaunnaSelf - patient is the [id number] [facility] after [facility] [address] [place], [place] [id number], AubreyaunnaSelf - patient is the [id number] 2016 Medical (General) History Surgical History Surgery Date(Month/Year) Tubes in Ears, ProblemStatus: Active,
--- OUTSIDE RECORDS SUMMARY | 2025-03-05 01:12 | XMS_ITS | Encounter Summary ---
Author Organization [facility] Address [address] [place] [address] Care Team Providers Care Purchase Price Analyst Name Role Phone Unavailable Primary Care Provider Unavailabl e Encounter Details DateTypeDepartmentCare Team (Latest Contact Info)Cwdnzegfest85/25/2025Travel Social History Tobacco UseTypesPacks/DayYears UsedDateSmoking Tobacco: Never Assessed Estimated Date of BvuffnswVrlrtrzvSzn11/19/2026Based on UltrasoundSex and Gender InformationValueDate RecordedSex Assigned at LfxbrIxqdgq57/05/2025 5:09 AM EDT Legal SgoBdxkzc26/15/2023 9:35 PM EDTGender VvsyoddoZsqjby30/05/2025 5:09 AM EDT Sexual RlvxxtcxvqfIcneaclg71/05/2025 5:09 AM EDTdocumented as of this encounter Plan of Treatment DateTypeDepartmentCare Team (Latest Contact Info)Wpdvprmdkoi39/29/2025 8:30 AM ESTRoutine [facility] [address] [place] [address] Rena Eaton, MIKE [address] [place] [address] documented as of this encounter Visit Diagnoses Not on filedocumented in this encounter
--- OUTSIDE RECORDS SUMMARY | 2025-03-05 01:12 | XMS_ITS | Clinical Summary ---
Author Organization [facility] Address [address], [address] [place] [address] Care Team Providers Care Weed Thinner Name Role Phone Lori Mak DO Primary Care Provider [phone] Allergies No known active allergies Medications MedicationSigDispense [...] InformationValueDate RecordedSex Assigned at BirthNot on fileLegal TciEvcjlk03/10/2013 5:04 PM ESTGender Identity Not on fileSexual OrientationNot on file Last Filed Vital Signs Vital SignReadingTime TakenCommentsBlood Syzpiukg602/7810 4:21 PM EDT Pulse--Cafoxzaussm86.1 ??C (98.7 ??F)10/22/2022 3:02 PM EDTRespiratory Rate-- Oxygen Saturation--Inhaled Oxygen Concentration--Giwfhg39.2 kg (124 lb) 10/22/2022 3:02 PM LNITgwiqs566 cm (5' 3 )10/22/2022 3:02 PM EDTBody Mass Index 21.9708 3:02 PM EDT Plan of Treatment Health MaintenanceDue DateLast DoneCommentsDepression Seytwd1302/29/2016Varicella vaccine (1 of 2 - 13+ 2-dose series)02/28/2017HIV unixtl4202/28/2019HPV vaccine (1 - 3-dose series)02/28/2019Chlamydia/GC wjqzsr17Meningococcal B vaccine (1 of 2 - Standard)2020Hepatitis C mlapzq872DTaP/Tdap/Td vaccine (1 - Tdap)02/28/2023Hepatitis B vaccine (1 [...] topic Procedures Procedure NamePriorityDate/TimeAssociated DiagnosisCommentsC.TRACHOMATIS N.GONORRHOEAE DNA, ULBYDNiicgct12/14/2019 4:30 PM EDT Screen for STD (sexually transmitted disease) from Last 3 Months or Most Recently Relevant to Health Maintenance Results * C.trachomatis N.gonorrhoeae DNA, Urine (12/22/2018 4:30 PM EDT)ComponentValue Ref RangeTest MethodAnalysis TimePerformed AtPathologist SignatureSpecimen Description.URINE12/22/2018 4:30 PM EDTMERCY LABORATORIESC. trachomatis DNA ,WayxiGSOSKPKSOWQQPUAP49/14/2019 4:30 PM EDTMERCY LABORATORIESComment: CHLAMYDIA TRACHOMATIS DNA [...] alternative nucleic acid target. N. gonorrhoeae DNA, RoeekXRGRBTDARHQKJGQS35/14/2019 4:30 PM EDTMERCY LABORATORIESComment: NEISSERIA GONORRHOEAE DNA [...] / LateralityCollection Method / Volume Collection TimeReceived PprmXiyab43/14/2019 4:30 PM EDT1 6:14 PM EDT Narrative Authorizing ProviderResult TypeResult StatusKathlsonja Hearn APRN - CN MICROBIOLOGY - GENERAL ORDERABLESFinal ResultPerforming OrganizationAddress City/State/ZIP CodePhone Number [facility] [address] [place] [address], [facility] [phone] [place] [address] [place], [place] [address] [phone] from Last 3 Months or Most Recently Relevant to Health Maintenance Insurance Care Teams Team MemberRelationshipSpecialtyStart DateEnd Date Lori Mak DO PCP - GeneralPediatrics2
--- OUTSIDE RECORDS SUMMARY | 2025-03-05 01:12 | XMS_ITS | Clinical Summary ---
Author Organization [facility] Address [address] [place] [address] Care Team Providers Care Project Management It Specialist Name Role Phone Unavailable Primary Care Provider Unavailabl e Allergies Active AllergyReactionsCriticalityNoted DateCommentsPrednisoneAnxietyLow 08/20/2023 Increased HR Medications MedicationSigDispense QuantityRefillsLast FilledStart DateEnd DateStatus MV-Min-Fe Fum-FA-DHA ( 1 PO) Take by mouthActive omeprazole (PriLOSEC) [address] capsule Indications:Gastroesophageal Reflux Disease,HeartburnTake 1 capsule (20 mg) by mouth in the morning. Take before meals. Do not crush or chew. 30 capsule ctive nystatin (Mycostatin) 970604 UNIT/GM powder Indications:Yeast infectionApply topically in the [...] this medication. 14 tablet Expired Encounters DateTypeDepartmentCare KmejSwtsreifzhe15/25/6616Kvhiyh92/25/2025Patient Self-Triage [facility] [address] [place] [address] Santo Deras, Physician, 5Clinisync Result Encounter NOM[facility] External Department Unsolicited Durga Gibson, 02/10/2025Telephone [facility] [address] [place] [address] Marilu Pearce MA 02/09/2025 9:50 AM ESTRoutine [facility] [address] [place] [address] Durga Gibson DO 24 weeks gestation of ([facility]); Second trimester ([facility]); Diabetes mellitus screening; Vaginal discharge; Heartburn during in second trimester ([facility]); Yeast bneglpivp77/02/2025Bamboo flowsheet [facility] [address] [place] [address] Durga Gibson, 02/03/2025 8:00 AM ESTAncillary Procedure [facility] [address] [place] [address] Encounter for follow-up ultrasound of anatomy ([facility])01/21/2025Telephone [facility] [address] [place] [address] Marilu Pearce MA 01/20/2025Telephone [facility] [address] [place] [address] Marilu Pearce MA 01/07/2025 10:30 AM EDTRoutine [facility] [address] [facility] [place] [address] Meredith Castro PA Second trimester ([facility]); 20 weeks gestation of ([facility])01/07/2025 9:30 AM EDTAncillary Procedure [facility] LUCION [address] [place] [address] Screening, , for anatomic survey ([facility])01/04/2025linisync Result Encounter NOMS External Department Unsolicited Rena Eaton NP 12/23/2024bstract [facility] DOBBS [address] [facility] [address] Durga Gibson DO 12/04/2024Telephone [facility] DOBBS [address] [place] [address] Rena Eaton NP from Last 3 Months Social History Tobacco UseTypesPacks/DayYears UsedDateSmoking Tobacco: Never Assessed Estimated Date of XgvlttacJzoldgjtSqd70/19/2026ased on UltrasoundSex and Gender InformationValueDate RecordedSex Assigned at KwfnhWlcgsj69/05/2025 5:09 AM EDT Legal FgsVziuds56/15/2023 9:35 PM EDTGender LdnydoucEhaerr33/05/2025 5:09 AM EDT Sexual FiujwwhgjnzFkvshkqd96/05/2025 5:09 AM EDT Last Filed Vital Signs Vital SignReadingTime TakenCommentsBlood Dslsnsqc348/6002/09/2025 9:55 AM EST Pulse--Temperature--Respiratory Rate--Oxygen Saturation--Inhaled Oxygen Concentration--Synzfx14 kg (191 lb 12.8 oz)02/09/2025 9:55 AM BIMWkyewx840.5 cm (5' 2 )10/09/2024 9:24 AM EDTBody Mass Index35.0810/09/2024 9:24 AM EDT Plan of Treatment DateTypeDepartmentCare Team (Latest Contact Info)Kkrkngubash99/29/2025 8:30 AM ESTRoutine [facility] DOBBS [address] [facility] [address] Rena Eaton, MIKE [address] [place] [address] Procedures Procedure NamePriorityDate/TimeAssociated DiagnosisCommentsGLUCOSE 1 HOURRoutine 02/13/2025 10:05 AM EST ALL CBC WITH AUTO AVKPCzjfnco19/06/2025 10:05 AM EST RECURRENT VAGINITIS (HTRX)Hsjjobu7402/09/2025 12:41 PM EST POCT URINALYSIS NSTCNZAWKkgtmda82/02/2025 10:03 AM EST 24 weeks gestation of ([facility]) Second trimester ([facility]) US OB LIMITED 1+ HLPGNHLDsohjfu51/26/2025 8:08 AM EST Encounter for follow-up ultrasound of anatomy ([facility]) POCT URINALYSIS OBGIPIKHNwfbxnj35/30/2025 11:08 AM EDT Second trimester ([facility]) US OB 14+ WEEKS ANATOMY RTEHBfabllj02/30/2025 10:58 AM EDT Screening, , for anatomic survey ([facility]) AFP, SERUM, OPEN SPINA ABENRRKqjkuqp80/27/2025 9:15 AM EDT from Last 3 Months Results * GLUCOSE 1 HOUR (02/13/2025 10:05 AM EST)ComponentValueRef RangeTest Method Analysis TimePerformed AtPathologist SignatureGLUCOSE 1 BMTD166<130 mg/dLTBH Specimen (Source)Anatomical Location / LateralityCollection Method / Volume Collection TimeReceived Time02/13/2025 10:05 AM EST02/13/2025 10:08 AM EST Narrative [facility] - 02/13/2025 10:47 AM EST Authorizing ProviderResult TypeResult StatusCorey Paige DOLAB BLOOD ORDERABLES Final ResultPerforming OrganizationAddressCity/State/ZIP CodePhone Number [facility] * (ABNORMAL) ALL CBC WITH AUTO DIFF (02/13/2025 10:05 AM EST)ComponentValueRef RangeTest MethodAnalysis TimePerformed AtPathologist SignatureTBH WBC14.7(H) 4.0 - 11.0 10 3/uLTBHTBH RBC4.08(L)4.20 - 5.40 10 6/uLTBHTBH HGB12.312.0 - 16.0 g/dLTBHTBH HCT36.836.0 - 48.0 %TBHTBH MCV90.281.0 - 99.0 fLTBHTBH MCH30.1 26.7 - 34.0 pgTBHTBH MCHC33.429.9 - 35.2 g/dLTBHTBH RDW12.011.0 - 15.0 %TBHTBH ZRP101982 - 450 10 3/uLTBHTBH MPV11.09.5 - 13.5 [...] DOCLINISYNCFinal Result Performing OrganizationAddressCity/State/ZIP CodePhone Number [facility] * (ABNORMAL) RECURRENT VAGINITIS (HTRX) (02/09/2025 12:41 PM EST)ComponentValue Ref RangeTest MethodAnalysis TimePerformed AtPathologist SignatureATOPOBIUM PVNVWTX69.131(A)19.961 - 24.689 ppm02/10/2025 7:52 AM ESTHealthTrackRx at LabPortATOPOBIUM VAGINAEDetected(A)19.961 - 24.689 ppm02/10/2025 7:52 AM EST [facility] at LabPortBVAB 2,3 (BACTERIAL VAGINOSIS ASSOCIATED BACTERIA 2, 3); MOBILUNCUS DCK106.961 - 24.689 ppm02/10/2025 7:52 AM ESTHealthTrackRx at LabPortBVAB 2,3 (BACTERIAL VAGINOSIS ASSOCIATED BACTERIA 2, 3); MOBILUNCUS SPP Not Oolrctwt56.961 - 24.689 ppm02/10/2025 7:52 AM ESTHealthTrackRx at LabPort LEVON ALBICANS, PARAPSILOSIS, NUUFNZPUGX543.000 - 30.347 ppm02/10/2025 7:52 AM ESTHealthTrackRx at LabPortCANDIDA ALBICANS, PARAPSILOSIS, TROPICALISNot Oyvyuioe61.000 - 30.347 ppm02/10/2025 7:52 AM ESTHealthTrackRx at LabPort LEVON ZPBSOKDQ707.000 - 31.618 ppm02/10/2025 7:52 AM ESTHealthTrackRx at LabPortCANDIDA GLABRATANot Ppxlnvde51.000 - 31.618 ppm02/10/2025 7:52 AM EST [facility] at LabPortCANDIDA LUPREJ824.000 - 30.873 ppm02/10/2025 7:52 AM ESTHealthTrackRx at LabPortCANDIDA KRUSEINot Jklhuwgm54.000 - 30.873 ppm 02/10/2025 7:52 AM ESTHealthTrackRx at LabPortCHLAMYDIA NGIVLEQAQFB289.000 - 31.586 ppm02/10/2025 7:52 AM ESTHealthTrackRx at LabPortCHLAMYDIA TRACHOMATIS Not Msjfgfhq68.000 - 31.586 ppm12 7:52 AM ESTHealthTrackRx at LabPort GARDNERELLA NHIWGYHCN52.508(A)19.961 - 24.689 ppm02/10/2025 7:52 AM EST [facility] at LabPortGARDNERELLA VAGINALISDetected(A)19.961 - 24.689 ppm 02/10/2025 7:52 AM ESTHealthTrackRx at LabPortMEGASPHAERA (TYPES 1, 2)019.961 - 24.689 ppm02/10/2025 7:52 AM ESTHealthTrackRx at LabPortMEGASPHAERA (TYPES 1, 2)Not Lzvzngvy38.961 - 24.689 ppm02/10/2025 7:52 AM ESTHealthTrackRx at LabPortNEISSERIA TOADVNVYESW184.000 - 32.587 ppm02/10/2025 7:52 AM EST [facility] at LabPortNEISSERIA GONORRHOEAENot Lobuojgf27.000 - 32.587 ppm 02/10/2025 7:52 AM ESTHealthTrackRx at LabPortTRICHOMONAS RQCMVWENL201.000 - 31.995 ppm02/10/2025 7:52 AM ESTHealthTrackRx at LabPortTRICHOMONAS VAGINALIS Not Nvlnhmsp78.000 - 31.995 ppm02/10/2025 7:52 AM ESTHealthTrackRx at LabPort MYCOPLASMA SBQYZYCLGW786.961 - 24.689 ppm02/10/2025 7:52 AM ESTHealthTrackRx at LabPortMYCOPLASMA GENITALIUMNot Psyixjwy13.961 - 24.689 ppm02/10/2025 7:52 AM ESTHealthTrackRx at LabPortERMB, C; MEFA24.33(A)23.000 - 27.500 ppm 02/10/2025 7:52 AM ESTHealthTrackRx at LabPortERMB, C; MEFADetected(A)23.000 - 27.500 ppm02/10/2025 7:52 AM ESTHealthTrackRx at LabPortTET B, TET M23.385(A) 23.000 - 27.500 ppm12/05/2024 7:52 AM ESTHealthTrackRx at LabCommunity Hospital SouthTET BBEL M Detected(A)23.000 - 27.500 ppm02/10/2025 7:52 AM ESTHealthTrackRx at [facility] Specimen (Source)Anatomical Location / LateralityCollection Method / Volume Collection TimeReceived JqgaJbqydt58/02/2025 12:41 PM EST02/10/2025 2:30 AM EST Narrative Authorizing ProviderResult TypeResult StatusCorey Paige DOLAB BLOOD ORDERABLES Final ResultPerforming OrganizationAddressCity/State/ZIP CodePhone Number [facility] [address] [place] [address] * POCT urinalysis dipstick manually resulted (02/09/2025 10:03 AM EST) Only the most recent of2 resultswithin [...] Location / LateralityCollection Method / VolumeCollection TimeReceived JdtbBczne59/02/2025 10:03 AM EST Narrative Authorizing ProviderResult TypeResult [...] Joseph Gracia MD Authorizing ProviderResult TypeResult StatusCorey PaigeWinchendon Hospital OB US PROCEDURES Final Result * US [...] BY: Joseph Gracia MD Authorizing ProviderResult TypeResult StatusRena Eaton NPIMG OB US PROCEDURESFinal Result * AFP, SERUM, OPEN SPINA BIFIDA (01/04/2025 9:15 AM EDT)ComponentValueRef Range Test MethodAnalysis TimePerformed AtPathologist SignatureRESULTSReport.TBHTEST RESULTS:*Screen Negative*.TBHGEST. AGE ON COLLECTION DATE19.6. weeksTBHGESTAT. AGE BASED ONUltrasound.TBHComment: ?15.0 on 12/03/2024 Recalculations are not recommended when gestational dating by LMP and ultrasound are within 10 days. MATERNAL AGE AT EDD21.2. yrTBHRACECaucasian.LQSLMCFLR277. lbsTBHINSULIN DEP DIABETESNo.TBHMULTIPLE GESTATIONNo.TBHAFP VALUE47.1. ng/mLTBHAFP MOM0.96.TBHOSBR RISK 1 [id number].TBHINTERPRETATIONComment.TBHComment: Interpretation: Screen Negative This result is screen [...] Customer Services to discuss available options. ??The [employer] recommends amniocentesis be offered to women age 35 and older. COMMENT:Comment.TBHComment: Shamika Swenson, Ph.D., [facility] Director References: Available Upon Request. Multiples Of Median Cutoffs ?For AFP Elevations Tyson ?? 2.5 ? Black ?2.8 IDD ? 2.0 ? Twins ?4.5 ?Abbreviation Definitions IDD - Insulin Dep Diabetes OSBR - Open Spina Bifida Risk For further inquiries contact [employer] [facility] at [phone]. This test was developed and its performance characteristics determined by [employer]. It has not been cleared or approved by the Food and Drug Administration. Performed at: ??[facility] - [facility] [address] [place], [place] ??[id number] Cardroom Supervisor: Margarette Saldaña [facility], Phone: ??[phone] Specimen (Source)Anatomical Location / LateralityCollection Method / Volume Collection TimeReceived Time01/04/2025 9:15 AM EDT1 9:16 AM EDT Narrative [facility] - 01/06/2025 12:07 AM EDT N N ULTRASOUND [id number] [phone] N 1 Y 167 N N N N N White/ Authorizing ProviderResult TypeResult StatusJersey City Medical Center NPLAB BLOOD ORDERABLESFinal ResultPerforming OrganizationAddressCity/State/ZIP CodePhone Number [facility] from Last 3 [place] [address]
[2025-03-05 01:25] VITALS: BP 117/63; PULSE 73
== END 2025-03-05 03:07 | disposition home or self-care (01) ==
LOC: FBCO 01:10 → FBC 01:13
PROVIDERS: Visit Provider Obstetrics & Gynecology
DX: O26.893 Other specified pregnancy related conditions, third trimester (principal); Z3A.28 28 weeks gestation of pregnancy
CPT/HCPCS: 59025